=== PATIENT | male | born 1955 | race Caucasian/White ===

== ENCOUNTER 2017-10-29 13:56 | Emergency (ER) | payer OTHER ==
[~2017-10-29] VITALS: Ht 190.5 cm; Wt 110.7 kg
[~2017-10-29 13:56] MED LIST: AMIODARONE HCL200 MG PO; AMLODIPINE BESY10 MG PO; ASPIR 8181 MG PO; ATORVASTATIN CA20 MG PO; B-122500 MCG PO; CALCIUM600 MG PO; CLEOCIN HCL150 MG PO; CLINDAMYCIN HC150 MG PO; CLINDAMYCIN HC300 MG PO; COUMADIN1 MG PO; COUMADIN2.5 MG PO; CYMBALTA30 MG PO; DIOVAN80 MG PO; DULERA 200 MCG/13 GM; DULERA 200 MCG/13 GM INH; HYDROCHLOROTHIA25 MG PO; HYZAAR 50-12.51 EACH PO; LASIX40 MG PO; LIPITOR80 MG PO; MELOXICAM15 MG PO; OMEPRAZOLE40 MG PO; PLAVIX75 MG PO; PRILOSEC OTC20 MG PO; REQUIP4 MG PO; ROPINIROLE HCL1 MG PO; SYMBICORT 80-10.2 GM; TOPROL XL50 MG PO; ZETIA10 MG PO
[2017-10-29 14:26] LABS: BASOPHILS % 0.1 % (0.0-1.0); EOSINOPHILS # (AUTO) 0.2 (0.0-0.4); EOSINOPHILS % 2.8 % (0.0-6.0); HEMATOCRIT 28.5 % (38.2-49.6); HEMOGLOBIN 9.3 g/dL (14.0-18.0); LYMPHOCYTES # (AUTO) 1.2 (1.0-3.2); LYMPHOCYTES % 15.2 % (18.0-39.1); MEAN CORPUSCULAR HEMOGLOBIN 31.2 pg (28-32); MEAN CORPUSCULAR HGB CONC 32.6 g/dL (31-35); MEAN CORPUSCULAR VOLUME 95.6 fL (81-99); MONOCYTES # (AUTO) 0.7 (0.2-0.8); NEUTROPHILS # (AUTO) 5.8 (2.1-6.9); NEUTROPHILS % 71.4 % (38.7-80.0); PLATELET COUNT 244 x10e3/uL (140-360); RED BLOOD COUNT 2.98 x10e6/uL (4.3-5.7); RED CELL DISTRIBUTION WIDTH 15.9 % (11.7-14.4)
[2017-10-29 14:40] LABS: INR 3.51; PROTHROMBIN TIME 37.1 seconds (11.9-14.5)
[2017-10-29 14:41] LABS: PARTIAL THROMBOPLASTIN TIME 72.8 seconds (23.8-35.5)
== END 2017-10-29 18:50 | disposition home or self-care (01) ==
LOC: ER 13:56
DX: R04.0 Epistaxis (principal); I10 Essential (primary) hypertension; I51.9 Heart disease, unspecified
CPT/HCPCS: 36415; 85025; 85610; 85730; 99284

== ENCOUNTER 2017-12-24 09:44 | Emergency (ER) | payer OTHER ==
[~2017-12-24] VITALS: Ht 190.5 cm; Wt 108.7 kg
--- OUTSIDE RECORDS SUMMARY | 2017-12-24 09:49 | XMS REPORT ---
Author Author [facility] Address Unknown Phone Unavailable Care Team Providers Care Groover Operator Name Role Phone ROSINA ESDRAS Unavailable Unavailable CHUCK GREER Unavailable Unavailable LISA SORENSEN Unavailable Unavailable Problems This patient has no known problems. Allergies, Adverse Reactions, Alerts This patient has no known allergies or adverse reactions. Medications This patient has no known medications. Results Test Description Test Time Test Comments Text Results Atomic Results Result Comments CBC W/PLT COUNT & AUTO DIFFERENTIAL 2017-02-14 08:45:00 WHITE BLOOD CELL COUNT (BEAKER) (test zoes=178) 12.0 K/ L 4.0-10.0 RED BLOOD CELL COUNT (BEAKER) (test vjip=200) 2.26 M/ L 4.20-5.80 HEMOGLOBIN (BEAKER) (test rmpz=265) 8.0 GM/DL 13.0-16.8 HEMATOCRIT (BEAKER) (test ttzb=197) 23.1 % 40.0-50.0 MEAN CORPUSCULAR VOLUME (BEAKER) (test osfi=117) 102.0 fL 82.0-98.0 MEAN CORPUSCULAR HEMOGLOBIN (BEAKER) (test fxyc=850) 35.1 pg 27.0-33.0 MEAN CORPUSCULAR HEMOGLOBIN CONC (BEAKER) (test fdkm=243) 34.4 GM/DL 32.0- 36.0 RED CELL DISTRIBUTION WIDTH (BEAKER) (test clqo=428) 14.7 % 10.3-14.2 PLATELET COUNT (BEAKER) (test ncqo=340) 222 K/CU MM 150-430 MEAN PLATELET VOLUME (BEAKER) (test fmwe=324) 7.1 fL 6.5-10.5 NUCLEATED RED BLOOD CELLS (BEAKER) (test hcnk=308) 0 /100 WBC 0-0 NEUTROPHILS RELATIVE PERCENT (BEAKER) (test zpeu=739) 74 % LYMPHOCYTES RELATIVE PERCENT (BEAKER) (test swls=812) 12 % MONOCYTES RELATIVE PERCENT (BEAKER) (test qvzd=424) 10 % EOSINOPHILS RELATIVE PERCENT (BEAKER) (test ghun=839) 4 % BASOPHILS RELATIVE PERCENT (BEAKER) (test sjfn=272) 0 % NEUTROPHILS ABSOLUTE COUNT (BEAKER) (test uska=534) 8.86 K/ L 1.80-8.00 LYMPHOCYTES ABSOLUTE COUNT (BEAKER) (test uunq=316) 1.40 K/ L 1.48-4.50 MONOCYTES ABSOLUTE COUNT (BEAKER) (test recn=761) 1.22 K/ L 0.00-1.30 EOSINOPHILS ABSOLUTE COUNT (BEAKER) (test msjx=894) 0.50 K/ L 0.00-0.50 BASOPHILS ABSOLUTE COUNT (BEAKER) (test yzml=628) 0.03 K/ L 0.00-0.20 0.001.100.000.000.000.000.000.000.000.000.000.000.000.00BASIC METABOLIC [id number] 05:43:00* Test Item Value Reference Range Comments SODIUM (BEAKER) (test mghv=990) 131 meq/L 136-145 POTASSIUM (BEAKER) (test ypxh=318) 4.1 meq/L 3.5-5.1 CHLORIDE (BEAKER) (test mnab=546) 100 meq/L 98-107 CO2 (BEAKER) (test ftum=005) 23 meq/L 22-29 BLOOD UREA NITROGEN (BEAKER) (test assr=278) 18 mg/dL 7-21 CREATININE (BEAKER) (test yego=511) 0.84 mg/dL 0.57-1.25 GLUCOSE RANDOM (BEAKER) (test rggv=298) 91 mg/dL 70-105 CALCIUM (BEAKER) (test fzts=792) 7.9 mg/dL 8.4-10.2 EGFR (BEAKER) (test nrvs=8902) 93 mL/min/1.73 sq m ESTIMATED GFR IS NOT ACCURATE CREATININE CLEARANCE IN PREDICTING GLOMERULAR FILTRATION RATE. ESTIMATED GFR IS NOT APPLICABLE FOR DIALYSIS PATIENTS. [id number] 05:39:00* Test Item Value Reference Range Comments MAGNESIUM (BEAKER) (test gvwn=264) 2.0 mg/dL 1.6-2.6 PROTHROMBIN [id number] 05:15:00* Test Item Value Reference Range Comments PROTIME (BEAKER) (test istl=311) 27.7 seconds 11.7-14.7 INR (BEAKER) (test acjd=730) 2.6 <=5.9 RECOMMENDED COUMADIN/WARFARIN INR THERAPY RANGESSTANDARD DOSE: 2.0 - 3.0 Includes: PROPHYLAXIS for venous thrombosis, systemic embolization; TREATMENT for venous thrombosis and/or pulmonary embolus.HIGH RISK: Target INR is 2.5-3.5 for patients with mechanical heart valves.PROTHROMBIN [id number] 05:50: 00* Test Item Value Reference Range Comments PROTIME (BEAKER) (test acay=615) 21.2 seconds 11.7-14.7 INR (BEAKER) (test qxve=360) 1.8 <=5.9 RECOMMENDED COUMADIN/WARFARIN INR THERAPY RANGESSTANDARD DOSE: 2.0 - 3.0 Includes: PROPHYLAXIS for venous thrombosis, systemic embolization; TREATMENT for venous thrombosis and/or pulmonary embolus.HIGH RISK: Target INR is 2.5-3.5 for patients with mechanical heart valves.POCT-GLUCOSE [id number] 12:36:00 * Test Item Value Reference Range Comments POC-GLUCOSE METER (BEAKER) (test vmwu=1563) 133 mg/dL 70-110 TESTED AT [place] [id number] [facility] [address] POCT-GLUCOSE [id number] 08:35:00* Test Item Value Reference Range Comments POC-GLUCOSE METER (BEAKER) (test jrfo=0710) 115 mg/dL 70-110 TESTED AT [place] [id number] [facility] [address] PROTHROMBIN TIME/[id number] 04:21:00* Test Item Value Reference Range Comments PROTIME (BEAKER) (test hklg=222) 16.2 seconds 11.7-14.7 INR (BEAKER) (test xnbx=229) 1.3 <=5.9 RECOMMENDED COUMADIN/WARFARIN INR THERAPY RANGESSTANDARD DOSE: 2.0 - 3.0 Includes: PROPHYLAXIS for venous thrombosis, systemic embolization; TREATMENT for venous thrombosis and/or pulmonary embolus.HIGH RISK: Target INR is 2.5-3.5 for patients with mechanical heart valves.POCT-GLUCOSE [id number] 21:54:00 * Test Item Value Reference Range Comments POC-GLUCOSE METER (BEAKER) (test fadw=4104) 96 mg/dL 70-[address] [facility] [address] [facility] [address] POCT-GLUCOSE [id number] 17:12:00* Test Item Value Reference Range Comments POC-GLUCOSE METER (BEAKER) (test gngc=8378) 109 mg/dL 70-[address] [facility] [address] [facility] [address] CBC W/PLT COUNT & AUTO [id number] 11:10:00* Test Item Value Reference Range Comments WHITE BLOOD CELL COUNT (BEAKER) (test vkcx=102) 12.3 K/ L 4.0-10.0 RED BLOOD CELL COUNT (BEAKER) (test nypt=771) 2.34 M/ L 4.20-5.80 HEMOGLOBIN (BEAKER) (test kwnc=009) 7.9 GM/DL 13.0-16.8 HEMATOCRIT (BEAKER) (test fhzz=260) 23.4 % 40.0-50.0 MEAN CORPUSCULAR VOLUME (BEAKER) (test vhpa=255) 100.0 fL 82.0-98.0 MEAN CORPUSCULAR HEMOGLOBIN (BEAKER) (test neqj=175) 33.8 pg 27.0-33.0 MEAN CORPUSCULAR HEMOGLOBIN CONC (BEAKER) (test bonu=582) 33.8 GM/DL 32.0- 36.0 RED CELL DISTRIBUTION WIDTH (BEAKER) (test geby=483) 15.0 % 10.3-14.2 PLATELET COUNT (BEAKER) (test ixch=112) 155 K/CU MM 150-430 MEAN PLATELET VOLUME (BEAKER) (test vmaj=608) 8.0 fL 6.5-10.5 NUCLEATED RED BLOOD CELLS (BEAKER) (test fqrn=705) 0 /100 WBC 0-0 NEUTROPHILS RELATIVE PERCENT (BEAKER) (test qhnm=283) 76 % LYMPHOCYTES RELATIVE PERCENT (BEAKER) (test xmwh=634) 11 % MONOCYTES RELATIVE PERCENT (BEAKER) (test gjgn=920) 12 % EOSINOPHILS RELATIVE PERCENT (BEAKER) (test temq=493) 1 % BASOPHILS RELATIVE PERCENT (BEAKER) (test ztze=371) 0 % NEUTROPHILS ABSOLUTE COUNT (BEAKER) (test aotz=999) 9.40 K/ L 1.80-8.00 LYMPHOCYTES ABSOLUTE COUNT (BEAKER) (test ciuw=870) 1.31 K/ L 1.48-4.50 MONOCYTES ABSOLUTE COUNT (BEAKER) (test thsy=094) 1.47 K/ L 0.00-1.30 EOSINOPHILS ABSOLUTE COUNT (BEAKER) (test pwyx=805) 0.12 K/ L 0.00-0.50 BASOPHILS ABSOLUTE COUNT (BEAKER) (test gqbs=234) 0.03 K/ L 0.00-0.20 0.000.500.000.000.000.000.000.00(MANUAL DIFFERENTIAL)2017-02-11 11:10:00* Test Item Value Reference Range Comments TOTAL COUNTED (BEAKER) (test ekqr=9390) WBC MORPHOLOGY (BEAKER) (test lkut=096) Normal PLT MORPHOLOGY (BEAKER) (test yncf=014) Normal RBC MORPHOLOGY (BEAKER) (test gmwr=234) Normal POCT-GLUCOSE [id number] 08:50:00* Test Item Value Reference Range Comments POC-GLUCOSE METER (BEAKER) (test eytc=2936) 148 mg/dL 70-[address] [facility] [address] [facility] [address] BASIC METABOLIC [id number] 06:14:00* Test Item Value Reference Range Comments SODIUM (BEAKER) (test ufdh=299) 135 meq/L 136-145 POTASSIUM (BEAKER) (test obvt=012) 4.6 meq/L 3.5-5.1 CHLORIDE (BEAKER) (test vjsu=567) 103 meq/L 98-107 CO2 (BEAKER) (test cyvu=635) 23 meq/L 22-29 BLOOD UREA NITROGEN (BEAKER) (test acie=550) 35 mg/dL 7-21 CREATININE (BEAKER) (test uoqr=318) 0.98 mg/dL 0.57-1.25 GLUCOSE RANDOM (BEAKER) (test uuow=897) 104 mg/dL 70-105 CALCIUM (BEAKER) (test wgmq=592) 7.9 mg/dL 8.4-10.2 EGFR (BEAKER) (test ftja=9881) 78 mL/min/1.73 sq m ESTIMATED GFR IS NOT ACCURATE CREATININE CLEARANCE IN PREDICTING GLOMERULAR FILTRATION RATE. ESTIMATED GFR IS NOT APPLICABLE FOR DIALYSIS PATIENTS. PROTHROMBIN [id number] 05:51:00* Test Item Value Reference Range Comments PROTIME (BEAKER) (test fsay=452) 15.1 seconds 11.7-14.7 INR (BEAKER) (test ttlv=245) 1.2 <=5.9 RECOMMENDED COUMADIN/WARFARIN INR THERAPY RANGESSTANDARD DOSE: 2.0 - 3.0 Includes: PROPHYLAXIS for venous thrombosis, systemic embolization; TREATMENT for venous thrombosis and/or pulmonary embolus.HIGH RISK: Target INR is 2.5-3.5 for patients with mechanical heart valves.POCT-GLUCOSE [id number] 21:11:00 * Test Item Value Reference Range Comments POC-GLUCOSE METER (BEAKER) (test chvi=3667) 99 mg/dL 70-110 TESTED AT [address] [address] POCT-GLUCOSE [id number] 17:30:00* Test Item Value Reference Range Comments POC-GLUCOSE METER (BEAKER) (test rycf=7945) 112 mg/dL 70-110 TESTED AT [address] [address] POCT-GLUCOSE [id number] 12:39:00* Test Item Value Reference Range Comments POC-GLUCOSE METER (BEAKER) (test dzgu=1277) 119 mg/dL 70-110 TESTED AT [address] [address] POCT-GLUCOSE [id number] 08:45:00* Test Item Value Reference Range Comments POC-GLUCOSE METER (BEAKER) (test janl=8476) 132 mg/dL 70-110 TESTED AT [address] [address] PROTHROMBIN TIME/[id number] 05:25:00* Test Item Value Reference Range Comments PROTIME (BEAKER) (test eclc=926) 15.1 seconds 11.7-14.7 INR (BEAKER) (test lcsq=612) 1.2 <=5.9 RECOMMENDED COUMADIN/WARFARIN INR THERAPY RANGESSTANDARD DOSE: 2.0 - 3.0 Includes: PROPHYLAXIS for venous thrombosis, systemic embolization; TREATMENT for venous thrombosis and/or pulmonary embolus.HIGH RISK: Target INR is 2.5-3.5 for patients with mechanical heart valves.[id number] 05:22:00* Test Item Value Reference Range Comments MAGNESIUM (BEAKER) (test gzfk=837) 2.5 mg/dL 1.6-2.6 BASIC METABOLIC [id number] 05:22:00* Test Item Value Reference Range Comments SODIUM (BEAKER) (test lccx=762) 134 meq/L 136-145 POTASSIUM (BEAKER) (test gmxo=699) 4.6 meq/L 3.5-5.1 CHLORIDE (BEAKER) (test pinj=910) 103 meq/L 98-107 CO2 (BEAKER) (test qjdb=423) 25 meq/L 22-29 BLOOD UREA NITROGEN (BEAKER) (test ldfe=246) 33 mg/dL 7-21 CREATININE (BEAKER) (test nkvk=357) 1.02 mg/dL 0.57-1.25 GLUCOSE RANDOM (BEAKER) (test pbxc=852) 120 mg/dL 70-105 CALCIUM (BEAKER) (test ogwr=259) 8.1 mg/dL 8.4-10.2 EGFR (BEAKER) (test gvss=0596) 74 mL/min/1.73 sq m ESTIMATED GFR IS NOT ACCURATE CREATININE CLEARANCE IN PREDICTING GLOMERULAR FILTRATION RATE. ESTIMATED GFR IS NOT APPLICABLE FOR DIALYSIS PATIENTS. CBC W/PLT COUNT & AUTO [id number] 05:19:00* Test Item Value Reference Range Comments WHITE BLOOD CELL COUNT (BEAKER) (test wloc=182) 13.3 K/ L 4.0-10.0 RED BLOOD CELL COUNT (BEAKER) (test gdtl=661) 2.37 M/ L 4.20-5.80 HEMOGLOBIN (BEAKER) (test fnof=571) 7.8 GM/DL 13.0-16.8 HEMATOCRIT (BEAKER) (test mqoa=680) 23.6 % 40.0-50.0 MEAN CORPUSCULAR VOLUME (BEAKER) (test jxzi=938) 99.8 fL 82.0-98.0 MEAN CORPUSCULAR HEMOGLOBIN (BEAKER) (test ovso=822) 33.1 pg 27.0-33.0 MEAN CORPUSCULAR HEMOGLOBIN CONC (BEAKER) (test vata=859) 33.1 GM/DL 32.0- 36.0 RED CELL DISTRIBUTION WIDTH (BEAKER) (test anuv=388) 14.7 % 10.3-14.2 PLATELET COUNT (BEAKER) (test zpna=126) 119 K/CU MM 150-430 MEAN PLATELET VOLUME (BEAKER) (test gola=106) 8.2 fL 6.5-10.5 NUCLEATED RED BLOOD CELLS (BEAKER) (test uwsp=514) 0 /100 WBC 0-0 NEUTROPHILS RELATIVE PERCENT (BEAKER) (test yeip=137) 80 % LYMPHOCYTES RELATIVE PERCENT (BEAKER) (test dvup=750) 10 % MONOCYTES RELATIVE PERCENT (BEAKER) (test sljk=008) 10 % EOSINOPHILS RELATIVE PERCENT (BEAKER) (test kbdx=500) 1 % BASOPHILS RELATIVE PERCENT (BEAKER) (test gexc=289) 0 % NEUTROPHILS ABSOLUTE COUNT (BEAKER) (test aitu=340) 10.50 K/ L 1.80-8.00 LYMPHOCYTES ABSOLUTE COUNT (BEAKER) (test xiuu=697) 1.34 K/ L 1.48-4.50 MONOCYTES ABSOLUTE COUNT (BEAKER) (test opjt=872) 1.29 K/ L 0.00-1.30 EOSINOPHILS ABSOLUTE COUNT (BEAKER) (test ixnj=858) 0.09 K/ L 0.00-0.50 BASOPHILS ABSOLUTE COUNT (BEAKER) (test pvyn=477) 0.01 K/ L 0.00-0.20 0.00POCT-GLUCOSE [id number] 21:14:00* Test Item Value Reference Range Comments POC-GLUCOSE METER (BEAKER) (test zwco=9247) 137 mg/dL 70-110 TESTED AT [address] [address] POCT-GLUCOSE [id number] 13:34:00* Test Item Value Reference Range Comments POC-GLUCOSE METER (BEAKER) (test xvua=8645) 165 mg/dL 70-110 TESTED AT [place] [id number] [facility] [address] CALCIUM, [id number] 12:50:00* Test Item Value Reference Range Comments CALCIUM IONIZED (BEAKER) (test haql=161) 1.08 mmol/L 1.12-1.27 PH, BLOOD (BEAKER) (test zxps=7472) 7.42 Check serum Ionized Calcium level after 4 hours after IV Calcium replacement.POCT-GLUCOSE [id number] 05:49:00* Test Item Value Reference Range Comments POC-GLUCOSE METER (BEAKER) (test filo=9193) 189 mg/dL 70-[address] [facility] [address] [facility] [address] BASIC METABOLIC [id number] 03:38:00* Test Item Value Reference Range Comments SODIUM (BEAKER) (test ugja=348) 133 meq/L 136-145 POTASSIUM (BEAKER) (test pspt=177) 4.5 meq/L 3.5-5.1 CHLORIDE (BEAKER) (test eghg=493) 104 meq/L 98-107 CO2 (BEAKER) (test oemp=454) 22 meq/L 22-29 BLOOD UREA NITROGEN (BEAKER) (test mohc=296) 26 mg/dL 7-21 CREATININE (BEAKER) (test tulk=562) 1.04 mg/dL 0.57-1.25 GLUCOSE RANDOM (BEAKER) (test fnex=426) 168 mg/dL 70-105 CALCIUM (BEAKER) (test gwsw=684) 8.0 mg/dL 8.4-10.2 EGFR (BEAKER) (test wguz=0901) 73 mL/min/1.73 sq m ESTIMATED GFR IS NOT ACCURATE CREATININE CLEARANCE IN PREDICTING GLOMERULAR FILTRATION RATE. ESTIMATED GFR IS NOT APPLICABLE FOR DIALYSIS PATIENTS. [id number] 03:37:00* Test Item Value Reference Range Comments MAGNESIUM (BEAKER) (test tkmc=051) 2.3 mg/dL 1.6-2.6 CBC W/PLT COUNT & AUTO [id number] 03:33:00* Test Item Value Reference Range Comments WHITE BLOOD CELL COUNT (BEAKER) (test dmrh=590) 17.1 K/ L 4.0-10.0 RED BLOOD CELL COUNT (BEAKER) (test yhwc=960) 2.57 M/ L 4.20-5.80 HEMOGLOBIN (BEAKER) (test rkhy=852) 8.8 GM/DL 13.0-16.8 HEMATOCRIT (BEAKER) (test yrzd=610) 25.3 % 40.0-50.0 MEAN CORPUSCULAR VOLUME (BEAKER) (test pmnm=289) 98.5 fL 82.0-98.0 MEAN CORPUSCULAR HEMOGLOBIN (BEAKER) (test lngp=389) 34.1 pg 27.0-33.0 MEAN CORPUSCULAR HEMOGLOBIN CONC (BEAKER) (test hwtz=920) 34.6 GM/DL 32.0- 36.0 RED CELL DISTRIBUTION WIDTH (BEAKER) (test xxdh=119) 13.7 % 10.3-14.2 PLATELET COUNT (BEAKER) (test rnlc=192) 116 K/CU MM 150-430 MEAN PLATELET VOLUME (BEAKER) (test yxfw=669) 7.9 fL 6.5-10.5 NUCLEATED RED BLOOD CELLS (BEAKER) (test dfwh=167) 0 /100 WBC 0-0 NEUTROPHILS RELATIVE PERCENT (BEAKER) (test jtzs=861) 83 % LYMPHOCYTES RELATIVE PERCENT (BEAKER) (test siyo=123) 7 % MONOCYTES RELATIVE PERCENT (BEAKER) (test pjfs=198) 10 % EOSINOPHILS RELATIVE PERCENT (BEAKER) (test ivbe=698) 0 % BASOPHILS RELATIVE PERCENT (BEAKER) (test trcy=956) 0 % NEUTROPHILS ABSOLUTE COUNT (BEAKER) (test ysxc=703) 14.10 K/ L 1.80-8.00 LYMPHOCYTES ABSOLUTE COUNT (BEAKER) (test zkdt=716) 1.23 K/ L 1.48-4.50 MONOCYTES ABSOLUTE COUNT (BEAKER) (test tfpj=155) 1.69 K/ L 0.00-1.30 EOSINOPHILS ABSOLUTE COUNT (BEAKER) (test nxqx=731) 0.06 K/ L 0.00-0.50 BASOPHILS ABSOLUTE COUNT (BEAKER) (test ijvf=621) 0.01 K/ L 0.00-0.20 0.00CALCIUM, [id number] 00:11:00* Test Item Value Reference Range Comments CALCIUM IONIZED (BEAKER) (test fwde=327) 1.05 mmol/L 1.12-1.27 PH, BLOOD (BEAKER) (test ptov=8181) 7.41 [id number] 00:11:00* Test Item Value Reference Range Comments MAGNESIUM (BEAKER) (test fyce=037) 2.2 mg/dL 1.6-2.6 POTASSIUM-STAT [id number] 00:09:00* Test Item Value Reference Range Comments POTASSIUM (BEAKER) (test khxu=767) 4.2 meq/L 3.6-5.5 POCT-GLUCOSE [id number] 22:07:00* Test Item Value Reference Range Comments POC-GLUCOSE METER (BEAKER) (test brxu=5985) 170 mg/dL 70-[address] [facility] [address] [facility] [address] HEMOGLOBIN AND [id number] 14:13:00* Test Item Value Reference Range Comments HEMOGLOBIN (BEAKER) (test lvlh=093) 9.3 GM/DL 13.0-16.8 HEMATOCRIT (BEAKER) (test blvb=201) 26.7 % 40.0-50.0 POCT-GLUCOSE [id number] 12:54:00* Test Item Value Reference Range Comments POC-GLUCOSE METER (BEAKER) (test jvpp=2761) 201 mg/dL 70-110 TESTED AT [address] [address] PLATELET AGGREGATION: FUNCTION [id number] 10:57:00* Test Item Value Reference Range Comments WEAK ADP RESULT(BEAKER) (test heja=0484) 60 % 60-91 PLATELET FUNCTION SCREEN INTERP (BEAKER) (test itlm=7724) 60-100% indicates normal platelet function [id number] (BEAKER) (test sfqp=3829) Klaudia Torres MD ( electronic signature) PLATELET COUNT AGG (BEAKER) (test luxb=7448) 144 K/CU MM 150-430 POCT-GLUCOSE [id number] 06:38:00* Test Item Value Reference Range Comments POC-GLUCOSE METER (BEAKER) (test nwch=8525) 190 mg/dL 70-110 TESTED AT [place] [id number] [facility] [address] [id number] 03:33:00* Test Item Value Reference Range Comments MAGNESIUM (BEAKER) (test sfut=209) 2.6 mg/dL 1.6-2.6 BASIC METABOLIC [id number] 03:33:00* Test Item Value Reference Range Comments SODIUM (BEAKER) (test epbp=143) 141 meq/L 136-145 POTASSIUM (BEAKER) (test ofsm=961) 4.7 meq/L 3.5-5.1 CHLORIDE (BEAKER) (test leou=691) 110 meq/L 98-107 CO2 (BEAKER) (test wofd=288) 21 meq/L 22-29 BLOOD UREA NITROGEN (BEAKER) (test kvcp=053) 24 mg/dL 7-21 CREATININE (BEAKER) (test yvet=353) 1.11 mg/dL 0.57-1.25 GLUCOSE RANDOM (BEAKER) (test aicq=333) 161 mg/dL 70-105 CALCIUM (BEAKER) (test nlyx=919) 8.4 mg/dL 8.4-10.2 EGFR (BEAKER) (test wlif=6877) 67 mL/min/1.73 sq m ESTIMATED GFR IS NOT ACCURATE CREATININE CLEARANCE IN PREDICTING GLOMERULAR FILTRATION RATE. ESTIMATED GFR IS NOT APPLICABLE FOR DIALYSIS PATIENTS. CALCIUM, [id number] 03:20:00* Test Item Value Reference Range Comments CALCIUM IONIZED (BEAKER) (test btbg=157) 1.16 mmol/L 1.12-1.27 PH, BLOOD (BEAKER) (test efhm=7383) 7.43 Check serum Ionized Calcium level after 4 hours after IV Calcium replacement.CBC W/PLT COUNT & AUTO [id number] 03:17:00* Test Item Value Reference Range Comments WHITE BLOOD CELL COUNT (BEAKER) (test uzkq=650) 13.9 K/ L 4.0-10.0 RED BLOOD CELL COUNT (BEAKER) (test aqma=787) 2.85 M/ L 4.20-5.80 HEMOGLOBIN (BEAKER) (test wlum=024) 9.5 GM/DL 13.0-16.8 HEMATOCRIT (BEAKER) (test cgfg=638) 28.1 % 40.0-50.0 MEAN CORPUSCULAR VOLUME (BEAKER) (test mvhy=876) 98.5 fL 82.0-98.0 MEAN CORPUSCULAR HEMOGLOBIN (BEAKER) (test rmac=071) 33.3 pg 27.0-33.0 MEAN CORPUSCULAR HEMOGLOBIN CONC (BEAKER) (test wfvo=184) 33.8 GM/DL 32.0- 36.0 RED CELL DISTRIBUTION WIDTH (BEAKER) (test egjl=941) 13.6 % 10.3-14.2 PLATELET COUNT (BEAKER) (test pfaj=994) 127 K/CU MM 150-430 MEAN PLATELET VOLUME (BEAKER) (test pxsg=448) 7.7 fL 6.5-10.5 NUCLEATED RED BLOOD CELLS (BEAKER) (test gvbm=343) 0 /100 WBC 0-0 NEUTROPHILS RELATIVE PERCENT (BEAKER) (test qygk=580) 81 % LYMPHOCYTES RELATIVE PERCENT (BEAKER) (test rdpz=343) 9 % MONOCYTES RELATIVE PERCENT (BEAKER) (test uxsy=700) 10 % EOSINOPHILS RELATIVE PERCENT (BEAKER) (test divd=564) 0 % BASOPHILS RELATIVE PERCENT (BEAKER) (test lnpi=806) 0 % NEUTROPHILS ABSOLUTE COUNT (BEAKER) (test weya=209) 11.30 K/ L 1.80-8.00 LYMPHOCYTES ABSOLUTE COUNT (BEAKER) (test woca=140) 1.22 K/ L 1.48-4.50 MONOCYTES ABSOLUTE COUNT (BEAKER) (test mbfb=147) 1.32 K/ L 0.00-1.30 EOSINOPHILS ABSOLUTE COUNT (BEAKER) (test ogic=868) 0.06 K/ L 0.00-0.50 BASOPHILS ABSOLUTE COUNT (BEAKER) (test bpxv=268) 0.02 K/ L 0.00-0.20 0.00HGB/HCT (H&H) - STAT [id number] 22:18:00* Test Item Value Reference Range Comments HEMOGLOBIN (BEAKER) (test zzwq=105) 9.5 GM/DL 13.0-16.8 HEMATOCRIT (BEAKER) (test kvhs=082) 28.0 % 40.0-50.0 [id number] 22:09:00* Test Item Value Reference Range Comments PHOSPHORUS (BEAKER) (test frlt=385) 4.5 mg/dL 2.3-4.7 [id number] 22:09:00* Test Item Value Reference Range Comments MAGNESIUM (BEAKER) (test nsky=904) 1.7 mg/dL 1.6-2.6 POTASSIUM-STAT [id number] 21:54:00* Test Item Value Reference Range Comments POTASSIUM (BEAKER) (test mjbe=491) 4.5 meq/L 3.6-5.5 CALCIUM, [id number] 21:54:00* Test Item Value Reference Range Comments CALCIUM IONIZED (BEAKER) (test ppri=659) 1.06 mmol/L 1.12-1.27 PH, BLOOD (BEAKER) (test rrpw=9056) 7.46 BLOOD GAS, [id number] 19:14:00* Test Item Value Reference Range Comments PH ARTERIAL (BEAKER) (test hkpa=400) 7.40 7.35-7.45 PCO2 ARTERIAL (BEAKER) (test sfke=147) 40 mmHg 35-45 PO2 ARTERIAL (BEAKER) (test jlsq=507) 87 mmHg 80-90 O2 SATURATION ARTERIAL (BEAKER) (test flox=243) 96.5 % 96.0-97.0 HCO3 ARTERIAL (BEAKER) (test ylma=702) 24 mmol/L 21-29 BASE EXCESS ARTERIAL (BEAKER) (test huxj=726) -0.3 mmol/L -2.0-3.0 PATIENT TEMPERATURE (BEAKER) (test esgd=4310) 37.3 C FIO2 (BEAKER) (test dezo=7806) 20.0 % BLOOD GAS, [id number] 17:49:00* Test Item Value Reference Range Comments PH ARTERIAL (BEAKER) (test jwlz=573) 7.38 7.35-7.45 PCO2 ARTERIAL (BEAKER) (test kbuv=891) 42 mmHg 35-45 PO2 ARTERIAL (BEAKER) (test nvbb=917) 121 mmHg 80-90 O2 SATURATION ARTERIAL (BEAKER) (test hbdg=234) 98.4 % 96.0-97.0 HCO3 ARTERIAL (BEAKER) (test ynqw=890) 24 mmol/L 21-29 BASE EXCESS ARTERIAL (BEAKER) (test gdtz=568) -1.0 mmol/L -2.0-3.0 PATIENT TEMPERATURE (BEAKER) (test qebl=8047) 36.3 C FIO2 (BEAKER) (test ehsy=6350) 40.0 % [id number] 16:48:00* Test Item Value Reference Range Comments FIBRINOGEN LEVEL (BEAKER) (test symz=076) 254 mg/dl 225-434 [id number] 16:48:00* Test Item Value Reference Range Comments PARTIAL THROMBOPLASTIN TIME (BEAKER) (test sghc=870) 33.3 seconds 22.5-36.0 PROTHROMBIN [id number] 16:47:00* Test Item Value Reference Range Comments PROTIME (BEAKER) (test tqyw=535) 16.7 seconds 11.7-14.7 INR (BEAKER) (test gdfs=700) 1.4 <=5.9 RECOMMENDED COUMADIN/WARFARIN INR THERAPY RANGESSTANDARD DOSE: 2.0 - 3.0 Includes: PROPHYLAXIS for venous thrombosis, systemic embolization; TREATMENT for venous thrombosis and/or pulmonary embolus.HIGH RISK: Target INR is 2.5-3.5 for patients with mechanical heart valves.[id number] 16:28:00* Test Item Value Reference Range Comments MAGNESIUM (BEAKER) (test tccf=824) 2.0 mg/dL 1.6-2.6 BASIC METABOLIC [id number] 16:28:00* Test Item Value Reference Range Comments SODIUM (BEAKER) (test okun=085) 141 meq/L 136-145 POTASSIUM (BEAKER) (test dore=962) 4.4 meq/L 3.5-5.1 CHLORIDE (BEAKER) (test nfyd=831) 111 meq/L 98-107 CO2 (BEAKER) (test fgor=691) 24 meq/L 22-29 BLOOD UREA NITROGEN (BEAKER) (test byfc=744) 22 mg/dL 7-21 CREATININE (BEAKER) (test qjwe=510) 0.91 mg/dL 0.57-1.25 GLUCOSE RANDOM (BEAKER) (test gbjl=751) 117 mg/dL 70-105 CALCIUM (BEAKER) (test oewu=546) 7.9 mg/dL 8.4-10.2 EGFR (BEAKER) (test myda=1383) 85 mL/min/1.73 sq m ESTIMATED GFR IS NOT ACCURATE CREATININE CLEARANCE IN PREDICTING GLOMERULAR FILTRATION RATE. ESTIMATED GFR IS NOT APPLICABLE FOR DIALYSIS PATIENTS. LACTIC ACID, ARTERIAL, WHOLE [id number] 16:25:00* Test Item Value Reference Range Comments LACTATE BLOOD ARTERIAL (2) (BEAKER) (test jvym=0446) 1.7 mmol/L 0.5-2.2 Effective 03/16/2016: Units/Reference Range ChangeNew: 0.5-2.2 mmol/L Previous: 5 -20 mg/dLCBC W/PLT COUNT & AUTO [id number] 16:23:00* Test Item Value Reference Range Comments WHITE BLOOD CELL COUNT (BEAKER) (test uxzy=258) 22.1 K/ L 4.0-10.0 RED BLOOD CELL COUNT (BEAKER) (test bqzi=985) 3.23 M/ L 4.20-5.80 HEMOGLOBIN (BEAKER) (test zdrj=729) 10.8 GM/DL 13.0-16.8 HEMATOCRIT (BEAKER) (test jicy=334) 31.8 % 40.0-50.0 MEAN CORPUSCULAR VOLUME (BEAKER) (test fqgu=925) 98.4 fL 82.0-98.0 MEAN CORPUSCULAR HEMOGLOBIN (BEAKER) (test zbbv=942) 33.4 pg 27.0-33.0 MEAN CORPUSCULAR HEMOGLOBIN CONC (BEAKER) (test xsge=328) 34.0 GM/DL 32.0- 36.0 RED CELL DISTRIBUTION WIDTH (BEAKER) (test lyxh=272) 13.5 % 10.3-14.2 PLATELET COUNT (BEAKER) (test wzov=643) 152 K/CU MM 150-430 MEAN PLATELET VOLUME (BEAKER) (test jyvj=182) 7.5 fL 6.5-10.5 NUCLEATED RED BLOOD CELLS (BEAKER) (test dufg=597) 0 /100 WBC 0-0 NEUTROPHILS RELATIVE PERCENT (BEAKER) (test nhzn=967) 79 % LYMPHOCYTES RELATIVE PERCENT (BEAKER) (test yzdc=500) 9 % MONOCYTES RELATIVE PERCENT (BEAKER) (test bzvm=568) 10 % EOSINOPHILS RELATIVE PERCENT (BEAKER) (test febh=367) 2 % BASOPHILS RELATIVE PERCENT (BEAKER) (test syxw=905) 0 % NEUTROPHILS ABSOLUTE COUNT (BEAKER) (test jchp=826) 17.40 K/ L 1.80-8.00 LYMPHOCYTES ABSOLUTE COUNT (BEAKER) (test woda=384) 2.06 K/ L 1.48-4.50 MONOCYTES ABSOLUTE COUNT (BEAKER) (test mbww=891) 2.14 K/ L 0.00-1.30 EOSINOPHILS ABSOLUTE COUNT (BEAKER) (test cvrv=924) 0.36 K/ L 0.00-0.50 BASOPHILS ABSOLUTE COUNT (BEAKER) (test zexa=701) 0.06 K/ L 0.00-0.20 0.00BLOOD GAS, [id number] 16:15:00* Test Item Value Reference Range Comments PH ARTERIAL (BEAKER) (test uddb=570) 7.38 7.35-7.45 PCO2 ARTERIAL (BEAKER) (test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
[2017-12-24] MEDS ORDERED: breo (11:53)
[2017-12-24] MEDS ORDERED: NORCO 10-325 T1 EACH PO (11:53)
[2017-12-24] MEDS ORDERED: SPIRIVA18 MCG INH (11:53)
[2017-12-24] MEDS ORDERED: LASIX20 MG PO (11:53)
[2017-12-24] MEDS ORDERED: CYMBALTA20 MG PO (11:53)
[2017-12-24] MEDS ORDERED: OMEPRAZOLE40 MG (11:53)
[2017-12-24] MEDS ORDERED: WARFARIN SODIUM1 MG PO (11:53)
[2017-12-24] MEDS ORDERED: METOPROLOL SUCC25 MG PO (11:53)
[2017-12-24] MEDS ORDERED: ROPINIROLE HC0.25 MG PO (11:53)
[2017-12-24] MEDS ORDERED: METOLAZONE5 MG PO (11:53)
[2017-12-24] MEDS ORDERED: GABAPENTIN100 MG PO (11:53)
[2018-01-01] MEDS ORDERED: KEFLEX500 MG PO (08:03)
[2018-01-01] MEDS ORDERED: GABAPENTIN300 MG PO (08:04)
== END 2017-12-24 13:36 | disposition home or self-care (01) ==
LOC: FSED 09:44
DX: R50.9 Fever, unspecified (principal); B34.9 Viral infection, unspecified; F17.210 Nicotine dependence, cigarettes, uncomplicated

== ENCOUNTER 2018-01-07 20:38 | Inpatient (IN) | payer OTHER ==
[~2018-01-07] VITALS: Ht 190.5 cm; Wt 108.5 kg
[~2018-01-07 20:38] MED LIST changes: +CYMBALTA20 MG PO; +GABAPENTIN100 MG PO; +GABAPENTIN300 MG PO; +KEFLEX500 MG PO; +LASIX20 MG PO; +METOLAZONE5 MG PO; +METOPROLOL SUCC25 MG PO; +NORCO 10-325 T1 EACH PO; +OMEPRAZOLE40 MG; +ROPINIROLE HC0.25 MG PO; +SPIRIVA18 MCG INH; +WARFARIN SODIUM1 MG PO; +breo
[2018-01-07 21:26] LABS: BASOPHILS % 0.3 % (0.0-1.0); EOSINOPHILS # (AUTO) 0.3 (0.0-0.4); EOSINOPHILS % 2.8 % (0.0-6.0); HEMOGLOBIN 11.9 g/dL (14.0-18.0); LYMPHOCYTES # (AUTO) 1.9 (1.0-3.2); LYMPHOCYTES % 18.8 % (18.0-39.1); MEAN CORPUSCULAR HGB CONC 32.2 g/dL (31-35); MEAN CORPUSCULAR VOLUME 87.1 fL (81-99); MONOCYTES # (AUTO) 1.3 (0.2-0.8); MONOCYTES % 12.5 % (4.4-11.3); NEUTROPHILS # (AUTO) 6.5 (2.1-6.9); PLATELET COUNT 301 x10e3/uL (140-360); RED BLOOD COUNT 4.25 x10e6/uL (4.3-5.7); RED CELL DISTRIBUTION WIDTH 16.3 % (11.7-14.4)
[2018-01-07 21:31] LABS: INR 2.89; PROTHROMBIN TIME 28.4 seconds (11.9-14.5)
[2018-01-07 21:32] LABS: PARTIAL THROMBOPLASTIN TIME 56.2 seconds (23.8-35.5)
[2018-01-07 21:37] LABS: ALANINE AMINOTRANSFERASE 17 IU/L (0-55); ALBUMIN 3.7 g/dL (3.5-5.0); ALBUMIN/GLOBULIN RATIO 0.9 (0.8-2.0); ALKALINE PHOSPHATASE 114 IU/L (40-150); BLOOD UREA NITROGEN 26 mg/dL (7-26); BUN/CREATININE RATIO 19 (6-25); CALCIUM 8.4 mg/dL (8.4-10.2); CARBON DIOXIDE 25 mmol/L (22-29); CHLORIDE 102 mmol/L (98-107); CREATININE, SERUM 1.39 mg/dL (0.72-1.25); EST GLOMERULAR FILTRATION RATE 52 ML/MIN (60-); GLUCOSE 127 mg/dL (74-118); SODIUM 140 mmol/L (136-145)
[2018-01-07] MEDS: PIPER-TAZ 3.375 GM 50 ML IV SCH (21:37)
[2018-01-07] MEDS: VANCOMYCIN 1GM/NS 250 ML 250 ML IV SCH (22:12)
[2018-01-07] MEDS ORDERED: METOLAZONE 5 MG TAB PO SCH (22:15)
[2018-01-07] MEDS ORDERED: ACETAMINOPHEN 325 MG TAB PO PRN (22:15)
[2018-01-07] MEDS ORDERED: ONDANSETRON HCL INJ 2 MG/ML VIAL IV PRN (22:15)
[2018-01-07] MEDS: SODIUM CHLORIDE 0.9% 1000ML 1,000 ML IV SCH (23:44)
[2018-01-08] MEDS: MORPHINE SULFATE 2 MG/ML SYR IV PRN ×2 (01:50→22:00)
[2018-01-08] MEDS: PIPER-TAZ 3.375 GM 50 ML IV SCH ×3 (05:45→22:00)
[2018-01-08 06:10] LABS: BASOPHILS % 0.1 % (0.0-1.0); EOSINOPHILS # (AUTO) 0.2 (0.0-0.4); EOSINOPHILS % 3.5 % (0.0-6.0); HEMATOCRIT 36.5 % (38.2-49.6); HEMOGLOBIN 11.5 g/dL (14.0-18.0); LYMPHOCYTES % 14.8 % (18.0-39.1); MEAN CORPUSCULAR HEMOGLOBIN 27.8 pg (28-32); MEAN CORPUSCULAR HGB CONC 31.5 g/dL (31-35); MEAN CORPUSCULAR VOLUME 88.2 fL (81-99); MONOCYTES # (AUTO) 0.8 (0.2-0.8); MONOCYTES % 12.3 % (4.4-11.3); NEUTROPHILS # (AUTO) 4.7 (2.1-6.9); NEUTROPHILS % 68.9 % (38.7-80.0); PLATELET COUNT 245 x10e3/uL (140-360); RED BLOOD COUNT 4.14 x10e6/uL (4.3-5.7); RED CELL DISTRIBUTION WIDTH 16.1 % (11.7-14.4)
[2018-01-08] MEDS: SODIUM CHLORIDE 0.9% 1000ML 1,000 ML IV SCH ×3 (06:27→14:39)
[2018-01-08 06:36] LABS: ALANINE AMINOTRANSFERASE 12 IU/L (0-55); ALBUMIN/GLOBULIN RATIO 0.8 (0.8-2.0); ALKALINE PHOSPHATASE 93 IU/L (40-150); ANION GAP 13.4 mmol/L (8-16); BLOOD UREA NITROGEN 22 mg/dL (7-26); BUN/CREATININE RATIO 21 (6-25); CALCIUM 7.9 mg/dL (8.4-10.2); CARBON DIOXIDE 24 mmol/L (22-29); CHLORIDE 105 mmol/L (98-107); CREATININE, SERUM 1.05 mg/dL (0.72-1.25); EST GLOMERULAR FILTRATION RATE > 60 ML/MIN (60-); GLUCOSE 143 mg/dL (74-118); POTASSIUM 3.4 mmol/L (3.5-5.1); SODIUM 139 mmol/L (136-145)
[2018-01-08] MEDS: DULOXETINE HCL 30 MG DELAYED RELEASE PO SCH (08:35)
[2018-01-08] MEDS: VANCOMYCIN 1GM/NS 250 ML 250 ML IV SCH ×2 (08:35→20:41)
[2018-01-08] MEDS: ASPIRIN 81 MG CHEW TAB PO SCH (08:35)
[2018-01-08] MEDS: METOPROLOL SUCCINATE 25 MG TAB XL PO SCH (08:36)
[2018-01-08] MEDS: FUROSEMIDE 40 MG TAB PO SCH ×2 (08:36→17:30)
[2018-01-08] MEDS: GABAPENTIN 300 MG CAP PO SCH ×3 (08:36→20:41)
[2018-01-08] MEDS: PANTOPRAZOLE SOD 40 MG TABEC PO SCH ×2 (08:36→17:30)
[2018-01-08] MEDS: NICOTINE 21 MG/EA PATCH TOP SCH (10:13)
[2018-01-08] MEDS: TIOTROPIUM 18 MCG INH POWDER INH SCH (11:03)
[2018-01-08] MEDS ORDERED: PLAVIX75 MG PO (11:54)
[2018-01-08 17:15] VITALS: BP 158/86
[2018-01-08 20:00] VITALS: BP 131/70
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
[2018-01-08] MEDS ORDERED: ROPINIROLE HCL 4 MG PO SCH (21:00)
[2018-01-08] MEDS ORDERED: WARFARIN SOD 2.5 MG TAB PO SCH (21:00)
[2018-01-08] MEDS: ROPINIROLE HCL 4 MG PO SCH (21:00)
[2018-01-09] VITALS: BP 153/68
[2018-01-09] MEDS ORDERED: HYDROCODONE/APAP 10MG-325MG TAB PO SCH
[2018-01-09] MEDS: SODIUM CHLORIDE 0.9% 1000ML 1,000 ML IV SCH ×4 (01:09→22:04)
[2018-01-09 04:00] VITALS: BP 135/70
[2018-01-09] MEDS: HYDROCODONE/APAP 10MG-325MG TAB PO SCH ×4 (06:25→18:20)
[2018-01-09] MEDS: PIPER-TAZ 3.375 GM 50 ML IV SCH ×3 (06:25→22:00)
[2018-01-09 06:46] LABS: BASOPHILS % 0.3 % (0.0-1.0); EOSINOPHILS # (AUTO) 0.3 (0.0-0.4); EOSINOPHILS % 3.6 % (0.0-6.0); HEMATOCRIT 33.4 % (38.2-49.6); HEMOGLOBIN 10.6 g/dL (14.0-18.0); LYMPHOCYTES # (AUTO) 1.6 (1.0-3.2); LYMPHOCYTES % 19.6 % (18.0-39.1); MEAN CORPUSCULAR HGB CONC 31.7 g/dL (31-35); MEAN CORPUSCULAR VOLUME 88.4 fL (81-99); MONOCYTES % 12.6 % (4.4-11.3); NEUTROPHILS # (AUTO) 5.1 (2.1-6.9); NEUTROPHILS % 63.5 % (38.7-80.0); PLATELET COUNT 267 x10e3/uL (140-360); RED BLOOD COUNT 3.78 x10e6/uL (4.3-5.7); RED CELL DISTRIBUTION WIDTH 16.1 % (11.7-14.4)
[2018-01-09 07:04] LABS: ANION GAP 13.9 mmol/L (8-16); CALCIUM 8.4 mg/dL (8.4-10.2); CREATININE, SERUM 1.24 mg/dL (0.72-1.25); POTASSIUM 3.9 mmol/L (3.5-5.1)
[2018-01-09] MEDS: METOPROLOL SUCCINATE 25 MG TAB XL PO SCH (08:30)
[2018-01-09] MEDS: FUROSEMIDE 40 MG TAB PO SCH ×2 (08:30→17:20)
[2018-01-09] MEDS: CLOPIDOGREL BISULFATE 75 MG TAB PO SCH (08:30)
[2018-01-09] MEDS: GABAPENTIN 300 MG CAP PO SCH ×3 (08:30→21:00)
[2018-01-09] MEDS: PANTOPRAZOLE SOD 40 MG TABEC PO SCH ×2 (08:30→17:20)
[2018-01-09] MEDS: DULOXETINE HCL 30 MG DELAYED RELEASE PO SCH (08:30)
[2018-01-09] MEDS: ASPIRIN 81 MG CHEW TAB PO SCH (08:30)
[2018-01-09] MEDS: NICOTINE 21 MG/EA PATCH TOP SCH (08:35)
[2018-01-09 08:53] VITALS: BP 172/85
[2018-01-09] MEDS: MORPHINE SULFATE 2 MG/ML SYR IV PRN (09:16)
[2018-01-09 09:38] LABS: INR 3.41; PROTHROMBIN TIME 32.3 seconds (11.9-14.5)
[2018-01-09] MEDS: VANCOMYCIN 1GM/NS 250 ML 250 ML IV SCH ×2 (10:00→21:00)
[2018-01-09] MEDS: TIOTROPIUM 18 MCG INH POWDER INH SCH (10:00)
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
[2018-01-09 15:40] VITALS: BP 151/66
[2018-01-09 20:00] VITALS: BP 150/73
[2018-01-09] MEDS: ROPINIROLE HCL 4 MG PO SCH (21:00)
[2018-01-10] VITALS (7 sets, daily range): BP systolic 128–163; BP diastolic 68–95
[2018-01-10] MEDS: MORPHINE SULFATE 2 MG/ML SYR IV PRN (00:45)
[2018-01-10] MEDS: PIPER-TAZ 3.375 GM 50 ML IV SCH ×2 (06:00→14:02)
[2018-01-10] MEDS: HYDROCODONE/APAP 10MG-325MG TAB PO SCH ×4 (06:00→17:03)
[2018-01-10] MEDS: SODIUM CHLORIDE 0.9% 1000ML 1,000 ML IV SCH ×2 (06:49→14:02)
[2018-01-10 07:41] LABS: INR 3.15; PROTHROMBIN TIME 30.4 seconds (11.9-14.5)
[2018-01-10] MEDS: TIOTROPIUM 18 MCG INH POWDER INH SCH (07:49)
[2018-01-10] MEDS: ASPIRIN 81 MG CHEW TAB PO SCH (09:00)
[2018-01-10] MEDS: NICOTINE 21 MG/EA PATCH TOP SCH (09:43)
[2018-01-10] MEDS: VANCOMYCIN 1GM/NS 250 ML 250 ML IV SCH (09:43)
--- NOTE | 2018-01-10 09:59 | Consultation ---
DATE OF CONSULTATION: January 08, 2018 CONSULTATION TO: Dr. Anthony Harris Oj Bonilla is a 62-year-old white male who has been referred to me for anticoagulation for history of deep vein thrombosis and history of atrial fib. SOCIAL HISTORY: Noncontributory. FAMILY HISTORY: Noncontributory. ALLERGIES: CYCLOBENZAPRINE. MEDICATIONS AT THIS TIME 1. Zosyn. 2. Gabapentin. 3. Coumadin. 4. Aspirin. 5. Metolazone. 6. Ondansetron. 7. Nicotine. 8. Duloxetine. 9. Metoprolol. 10. Protonix. 11. Lasix. 12. Morphine. REVIEW OF SYSTEMS HEENT: Normal. CARDIAC: History of atrial fib. History of hypertension. RESPIRATORY: Normal. GI: Normal. : Normal. MUSCULOSKELETAL: The patient has cellulitis of both lower extremities and history of deep vein thrombosis. PHYSICAL EXAMINATION GENERAL: A large-built male. No palpable adenopathy. HEART: Within normal limits. LUNGS: Clear. ABDOMEN: Obese. No hepatosplenomegaly. RECTAL: Exam deferred. CENTRAL NERVOUS SYSTEM: Essentially normal. EXTREMITIES: The patient has scars of surgery over the right lower extremity with skin grafting. The patient has cellulitis up to the level of the knees on both sides with local rise of temperature. LABORATORY DATA: Sodium of 139, potassium 3.4, chloride 75, CO2 24, BUN 22, creatinine 1.0, glucose 143. Hemoglobin of 11.5, hematocrit 36.5, white count 6800, platelets 205,000. INR 2.89. Bilirubin 0.3, SGOT 17, SGPT 12, alkaline phosphatase 93. IMPRESSION 1. Cellulitis of both lower extremities. 2. History of deep vein thrombosis. 3. Anemia of chronic disease. 4. Hypokalemia. 5. History of atrial fibrillation. 6. History of coronary artery disease. 7. History of peripheral neuropathy. 8. History of major depression. PLAN: Keep an eye on the INR. Continue antibiotics. I will confine myself to hematology only. Job#: [id number]
[2018-01-10] MEDS: CLOPIDOGREL BISULFATE 75 MG TAB PO SCH (10:38)
[2018-01-10] MEDS: GABAPENTIN 300 MG CAP PO SCH ×2 (10:38→14:02)
[2018-01-10] MEDS: PANTOPRAZOLE SOD 40 MG TABEC PO SCH ×2 (10:38→17:03)
[2018-01-10] MEDS: METOPROLOL SUCCINATE 25 MG TAB XL PO SCH (10:38)
[2018-01-10] MEDS: DULOXETINE HCL 30 MG DELAYED RELEASE PO SCH (10:38)
[2018-01-10] MEDS: FUROSEMIDE 40 MG TAB PO SCH ×2 (10:38→17:03)
--- NOTE | 2018-01-10 11:32 | Progress Note ---
DATE: Mr. Bonilla is feeling better today. His leg is slightly getting better. Still erythema. PHYSICAL EXAMINATION GENERAL: He is currently alert and oriented. Does not seem to be in acute distress. VITALS: Stable, currently afebrile. HEENT: Normocephalic. NECK: Supple. No JVD. No lymphadenopathy. No thyromegaly. CHEST: Clear bilaterally. HEART: S1 and S2. No S3, S4 or murmur. ABDOMEN: Soft. Bowel sounds are present. EXTREMITIES: Right leg has erythema, and there is edema. LABS: White count 7.99, hemoglobin 10.6, platelets 267. Sed rate 52. Sodium 141, potassium 3.9. Creatinine is 1.24. It was 1.39 on admission. His INR was 2.89. IMPRESSION: Cellulitis. Failed oral antibiotic. History of multiple surgeries, now with recurrent infection. We had workup done as an outpatient, which did not reveal infected hardware. We will probably have to revisit the subject. I am concerned that he failed antibiotic. I am also concerned about his kidney function. We could not do a central line because of high INR. I am going to switch him to daptomycin and discharge him with daptomycin at 4 mg per kg q.24 hours. Will observe his kidney function and CBC and see how he does clinically. Discussed with the patient. Will follow with you. Job#: [id number]
[2018-01-10] MEDS ORDERED: DAPTOMYCIN 400 MG in SODIUM CHLORIDE 0.9% 50 ML IV SCH (12:00)
--- NOTE | 2018-01-10 15:30 | Diagnostic Imaging Report ---
PROCEDURE: CHEST XRAY LINE PLACEMENT 1503 hrs. COMPARISON: Chest x-ray 06/26/17 INDICATIONS: Line PLACEMENT FINDINGS: LINES/TUBES: Left PICC line terminates in the SVC without pneumothorax. LUNGS: No consolidations or edema. PLEURA: No effusions. Stable eventration of the right diaphragm. HEART \T\ MEDIASTINUM: Stable mild cardiomegaly. BONES \T\ SOFT TISSUES: Median sternotomy wires are intact. No focal osseous lesions.. CONCLUSION: Left PICC line as described above. No complication. No new cardiopulmonary process. Dictated by: Tony Ireland M.D. on 01/10/2018 at 15:30 Electronically approved by: Tony Ireland M.D. on 01/10/2018 at 15:30
[2018-01-10] MEDS ORDERED: WARFARIN SOD 3 MG TAB PO SCH (17:00)
[2018-01-10] MEDS ORDERED: WARFARIN SOD 2.5 MG TAB PO SCH (21:00)
[2018-01-10] MEDS ORDERED: ROPINIROLE HCL 2 MG TAB PO SCH (21:00)
== END 2018-01-10 17:57 | disposition home or self-care (01) | DRG 603 ==
LOC: ER 20:38 → ERHOLD 22:10 → MED/SURG3 01-08 15:34
PROVIDERS: ADMIT Family Medicine; ATTEND Family Medicine
PROC: 02HV33Z Insertion of Infusion Device into Superior Vena Cava, Percutaneous Approach (ICD-10-PCS; principal; 2018-01-10)
DX: L03.115 Cellulitis of right lower limb (principal); G62.9 Polyneuropathy, unspecified; I48.91 Unspecified atrial fibrillation; I10 Essential (primary) hypertension; J44.9 Chronic obstructive pulmonary disease, unspecified; Z79.01 Long term (current) use of anticoagulants; D63.8 Anemia in other chronic diseases classified elsewhere; E87.6 Hypokalemia; I25.10 Atherosclerotic heart disease of native coronary artery without angina pectoris; F41.8 Other specified anxiety disorders; Z95.820 Peripheral vascular angioplasty status with implants and grafts; Z95.1 Presence of aortocoronary bypass graft; Z86.718 Personal history of other venous thrombosis and embolism
CPT/HCPCS: 36415; 36569; 71045; 80048; 80053; 80202; 85025; 85610; 85651; 85730; 86140; 87040; 94640; 96360; 96365; 96374; 99284; J2270; J2543; J3370; J7030; J7050

== ENCOUNTER → 2018-01-17 | Outpatient (CLI) | payer OTHER ==
[~2018-01-17] MED LIST changes: +IOPAMIDOL 370 MG/ML 200 ML INFUS..BTL INJ ONE; +SODIUM CHLORIDE 0.9% 250ML 250 ML ONE; +SODIUM CHLORIDE 0.9% 500ML 500 ML ONE; +SODIUM CHLORIDE 0.9% 50ML 100 ML ONE
[2018-01-17 14:51] LABS: CREATININE, SERUM 1.34 mg/dL (0.72-1.25)
--- NOTE | 2018-01-17 16:25 | Diagnostic Imaging Report ---
EXAM: CTA OF THE ABDOMEN INDICATION: \S\AAA FOLLOW UP COMPARISON: None. TECHNIQUE: Multi-detector CT technology was employed. CTA of the abdomen was performed after the administration of IV contrast. IV CONTRAST: 100 mL of Isovue-370 ORAL CONTRAST: None COMPLICATIONS: None RADIATION DOSE: Total DLP: 540 mGy*cm Estimated effective dose: (DLP x 0.015 x size factor) mSv CTDIvol has been reviewed. It is below the limits set by the Radiation Protocol Committee (RPC). For optimization of anatomic evaluation, multiplanar reconstruction, maximum intensity projections, and advanced 3-D off-line postprocessing were performed on a dedicated stand-alone workstation under the direct supervision of the interpreting physician. FINDINGS: Potential study limitations: None. VASCULAR WITH ADVANCED 3-D OFF-LINE POSTPROCESSING: Abdominal aortic aneurysm detail anatomy: Small fusiform aneurysm of the distal infrarenal abdominal aorta, which begins 4.9 cm below the right renal artery and extends down to bifurcation with maximum dimension of 3.1 cm (normal up to 3 cm) and has a length of 4.3 cm. The superior neck measures 2.0 cm and the inferior neck measures 2.1 cm. There is no angulation of the aneurysm. Normal size of the right and left common iliac arteries, measuring 1 cm and on each side. The remaining abdominal aorta is normal in course, caliber, and contour. There is no acute aortic pathology . Aortic plaques: Moderate nonobstructing atherosclerotic calcifications throughout the abdominal aorta. The abdominal aorta measures: 2.2 cm at the supramesenteric segment 2.2 cm at the mesenteric segment 1.8 cm at the renal segment 2.0 cm at the mid infrarenal segment 3.1 cm at the distal infrarenal segment 2.1 cm at the aortic bifurcation. The celiac axis, SMA, and DEANN are patent with associated mild nonobstructing atherosclerotic calcifications. There are single right and 2 left renal arteries which appear patent with associated mild nonobstructing atherosclerotic calcifications. LOWER CHEST: Partially visualized and sternotomy wires. Subsegmental atelectasis in the right lower lobe. Few cystic changes throughout the lungs. ABDOMEN: The liver, spleen, and pancreas appear normal. Status post cholecystectomy. The adrenal glands appear normal. Both kidneys are normal in size, shape, and density. There is no abnormal mass or hydronephrosis. There is no significant retroperitoneal adenopathy. No free fluid or free air within the abdomen. The bowel appears unremarkable. BONES: Unremarkable IMPRESSION: Small distal infrarenal abdominal aortic aneurysm (3.1 cm) with associated moderate nonobstructing atherosclerotic calcifications. Normal size of the remaining abdominal aorta. No acute abdominal aorta pathology. Recommend follow-up CTA abdomen in one year. Signed by: Dr. Carolina Conway M.D. on 01/17/2018 4:22 PM
== END ==
LOC: CT 13:49
PROVIDERS: ATTEND Internal Medicine Cardiovascular Disease
DX: I71.4 Abdominal aortic aneurysm, without rupture (principal)
CPT/HCPCS: 36415; 74175; 82565; 84520; J7040; J7050; Q9967

== ENCOUNTER 2018-05-14 14:13 | Inpatient (IN) | payer MEDICARE, OTHER ==
[~2018-05-14] VITALS: Ht 190.5 cm; Wt 114.8 kg
[~2018-05-14 14:13] MED LIST changes: -IOPAMIDOL 370 MG/ML 200 ML INFUS..BTL INJ ONE; -SODIUM CHLORIDE 0.9% 250ML 250 ML ONE; -SODIUM CHLORIDE 0.9% 500ML 500 ML ONE; -SODIUM CHLORIDE 0.9% 50ML 100 ML ONE
[2018-05-14] MEDS ORDERED: ATORVASTATIN CA20 MG PO (14:40)
[2018-05-14] MEDS ORDERED: ASPIR 8181 MG PO (14:40)
[2018-05-14] MEDS ORDERED: SPIRIVA18 MCG INH (14:40)
[2018-05-14] MEDS ORDERED: ULTRAM50 MG PO (14:40)
[2018-05-14] MEDS ORDERED: SODIUM CHLORIDE 0.9% 250ML 250 ML IV ONE (14:45)
[2018-05-14 14:46] LABS: BASOPHILS % 0.1 % (0.0-1.0); EOSINOPHILS # (AUTO) 0.4 (0.0-0.4); EOSINOPHILS % 3.9 % (0.0-6.0); HEMATOCRIT 23.4 % (38.2-49.6); HEMOGLOBIN 7.1 g/dL (14.0-18.0); LYMPHOCYTES # (AUTO) 1.4 (1.0-3.2); LYMPHOCYTES % 15.1 % (18.0-39.1); MEAN CORPUSCULAR HEMOGLOBIN 25.9 pg (28-32); MEAN CORPUSCULAR HGB CONC 30.3 g/dL (31-35); MEAN CORPUSCULAR VOLUME 85.4 fL (81-99); MONOCYTES # (AUTO) 0.9 (0.2-0.8); MONOCYTES % 10.4 % (4.4-11.3); NEUTROPHILS # (AUTO) 6.3 (2.1-6.9); NEUTROPHILS % 69.7 % (38.7-80.0); PLATELET COUNT 212 x10e3/uL (140-360); RED BLOOD COUNT 2.74 x10e6/uL (4.3-5.7); RED CELL DISTRIBUTION WIDTH 17.2 % (11.7-14.4)
[2018-05-14 14:59] LABS: ALBUMIN 3.4 g/dL (3.5-5.0); ALBUMIN/GLOBULIN RATIO 1.1 (0.8-2.0); ANION GAP 11.7 mmol/L (8-16); CALCIUM 8.3 mg/dL (8.4-10.2); CREATININE, SERUM 2.11 mg/dL (0.72-1.25); POTASSIUM 3.7 mmol/L (3.5-5.1)
[2018-05-14 15:05] LABS: CREATINE KINASE MB 4.2 ng/mL (0-5.0)
[2018-05-14 15:07] LABS: PARTIAL THROMBOPLASTIN TIME 66.6 seconds (23.8-35.5)
[2018-05-14 15:09] LABS: INR 4.66; PROTHROMBIN TIME 41.3 seconds (11.9-14.5)
--- NOTE | 2018-05-14 15:10 | Diagnostic Imaging Report ---
PROCEDURE: A single AP view of the chest. COMPARISON: 01/10/18 INDICATIONS: ANEMIA, WEAKNESS FINDINGS: Lines/tubes: None. Lungs: The lungs are well inflated and clear. There is no evidence of pneumonia or pulmonary edema. Pleura: There is no pleural effusion or pneumothorax. Heart and mediastinum: The heart and the mediastinum are unremarkable. Median sternotomy wires are again seen. Bones: No acute bony abnormality. Partially imaged lumbar spine fixation rods. IMPRESSION: 1. No acute cardiopulmonary disease. Dictated by: Luis F Tellez M.D. on 05/14/2018 at 15:13 Electronically approved by: Luis F Tellez M.D. on 05/14/2018 at 15:13
[2018-05-14] MEDS ORDERED: PANTOPRAZOLE 40 MG 10ML VIAL IV STA (15:13)
[2018-05-14] MEDS ORDERED: PANTOPRAZOLE INJ 40 MG in SODIUM CHLORIDE 0.9% 50ML 50 ML IV SCH (15:15)
[2018-05-14] MEDS ORDERED: PHYTONADIONE 10 MG/ML AMP SQ ONE (15:45)
[2018-05-14] MEDS ORDERED: PANTOPRAZOLE INJ 80 MG in SODIUM CHLORIDE 0.9% 100 ML IV SCH (16:00)
[2018-05-14] MEDS: SODIUM CHLORIDE 0.9% 1000ML 1,000 ML IV SCH ×2 (16:14→23:54)
[2018-05-14] MEDS: PANTOPRAZOL 40MG/SOD CHL 0.9% 50 ML IV SCH ×2 (16:31→21:28)
[2018-05-14 17:41] VITALS: BP 112/49
[2018-05-14 17:56] VITALS: BP 112/49
[2018-05-14 18:29] LABS: HEMATOCRIT 24.2 % (38.2-49.6); HEMOGLOBIN 7.3 g/dL (14.0-18.0)
--- NOTE | 2018-05-14 19:58 | Diagnostic Imaging Report ---
Tagged-RBC GI Bleed Study Clinical information: 63-year-old male with dark black stools x 48 hours, fatigue, weakness and low hemoglobin. Discussion: The patient's own red blood cells were labeled with 30 mCi of technetium-99m pertechnetate using the in vitro method (UltraTag). Dynamic images of the abdomen were obtained through 60 minutes. Distribution of tracer activity appears physiologic throughout the abdomen. No abnormal accumulation of tracer is seen within the gastrointestinal lumen. Impression: No scan evidence of active gastrointestinal bleeding at this time. Signed by: Dr. Natividad Jeffery M.D. on 05/14/2018 7:54 PM
[2018-05-14 20:38] VITALS: BP 145/65
[2018-05-14] MEDS: ATORVASTATIN 40 MG TAB PO SCH (21:00)
[2018-05-14] MEDS ORDERED: ROPINIROLE HCL 4 MG PO SCH (21:00)
[2018-05-14] MEDS ORDERED: ATORVASTATIN 20 MG TAB PO SCH (21:00)
[2018-05-14 21:28] VITALS: BP 145/65
[2018-05-14] MEDS: ROPINIROLE HCL 2 MG TAB PO SCH (21:28)
[2018-05-15] VITALS (7 sets, daily range): BP systolic 111–136; BP diastolic 42–75
[2018-05-15] MEDS ORDERED: SODIUM CHLORIDE 0.9% 100 ML 100 ML ONE (00:38)
[2018-05-15] MEDS: PANTOPRAZOL 40MG/SOD CHL 0.9% 50 ML IV SCH ×2 (00:47→06:13)
[2018-05-15] MEDS: DULOXETINE HCL 30 MG DELAYED RELEASE PO SCH (08:51)
[2018-05-15] MEDS: METOPROLOL SUCCINATE 50 MG TAB XL PO SCH (08:51)
[2018-05-15] MEDS: FUROSEMIDE 40 MG TAB PO SCH ×2 (08:51→16:49)
[2018-05-15] MEDS ORDERED: PANTOPRAZOLE SOD 40 MG TABEC PO SCH (09:00)
[2018-05-15] MEDS ORDERED: METOLAZONE 5 MG TAB PO PRN (09:00)
[2018-05-15] MEDS ORDERED: METOPROLOL SUCCINATE 25 MG TAB XL PO SCH (09:00)
[2018-05-15] MEDS ORDERED: SODIUM CHLORIDE 0.9% 250ML 250 ML ONE ×2 (09:31→20:43)
[2018-05-15 09:39] LABS: BASOPHILS % 0.1 % (0.0-1.0); EOSINOPHILS # (AUTO) 0.4 (0.0-0.4); EOSINOPHILS % 4.4 % (0.0-6.0); HEMATOCRIT 25.1 % (38.2-49.6); HEMOGLOBIN 7.5 g/dL (14.0-18.0); LYMPHOCYTES # (AUTO) 1.2 (1.0-3.2); LYMPHOCYTES % 12.5 % (18.0-39.1); MEAN CORPUSCULAR HEMOGLOBIN 25.8 pg (28-32); MEAN CORPUSCULAR HGB CONC 29.9 g/dL (31-35); MEAN CORPUSCULAR VOLUME 86.3 fL (81-99); MONOCYTES % 10.3 % (4.4-11.3); NEUTROPHILS # (AUTO) 6.9 (2.1-6.9); NEUTROPHILS % 71.8 % (38.7-80.0); PLATELET COUNT 208 x10e3/uL (140-360); RED BLOOD COUNT 2.91 x10e6/uL (4.3-5.7); RED CELL DISTRIBUTION WIDTH 16.9 % (11.7-14.4)
[2018-05-15] MEDS: TIOTROPIUM 18 MCG INH POWDER INH SCH (09:50)
[2018-05-15 10:01] LABS: INR 2.23; PROTHROMBIN TIME 23.2 seconds (11.9-14.5)
[2018-05-15] MEDS: SODIUM CHLORIDE 0.9% 1000ML 1,000 ML IV SCH ×2 (12:00→20:34)
[2018-05-15] MEDS: TRAMADOL HCL 50 MG TAB PO PRN (12:50)
[2018-05-15] MEDS ORDERED: FUROSEMIDE INJ 10 MG/ML 2 ML VIAL IV PRN (17:30)
[2018-05-15 19:17] LABS: HEMATOCRIT 26.9 % (38.2-49.6); HEMOGLOBIN 8.5 g/dL (14.0-18.0)
[2018-05-15] MEDS ORDERED: MIDAZOLAM HCL 2 MG/2 ML VIAL ONE (19:17)
[2018-05-15] MEDS ORDERED: FENTANYL CITRATE/PF 100MCG/2 ML INJ ONE (19:17)
[2018-05-15] MEDS: ATORVASTATIN 40 MG TAB PO SCH (21:43)
[2018-05-15] MEDS: GABAPENTIN 300 MG CAP PO SCH (21:43)
[2018-05-15] MEDS: ROPINIROLE HCL 2 MG TAB PO SCH (21:43)
[2018-05-16] VITALS (8 sets, daily range): BP systolic 132–161; BP diastolic 6–70
[2018-05-16] MEDS: SODIUM CHLORIDE 0.9% 1000ML 1,000 ML IV SCH ×3 (00:01→16:21)
[2018-05-16] MEDS ORDERED: SODIUM CHLORIDE 0.9% 250ML 250 ML ONE (01:29)
[2018-05-16] MEDS: TIOTROPIUM 18 MCG INH POWDER INH SCH (06:00)
[2018-05-16 06:40] LABS: INR 1.37; PROTHROMBIN TIME 15.9 seconds (11.9-14.5)
[2018-05-16 06:53] LABS: BASOPHILS % 0.2 % (0.0-1.0); EOSINOPHILS # (AUTO) 0.4 (0.0-0.4); HEMATOCRIT 30.1 % (38.2-49.6); HEMOGLOBIN 9.3 g/dL (14.0-18.0); LYMPHOCYTES # (AUTO) 1.2 (1.0-3.2); LYMPHOCYTES % 13.7 % (18.0-39.1); MEAN CORPUSCULAR HEMOGLOBIN 26.8 pg (28-32); MEAN CORPUSCULAR HGB CONC 30.9 g/dL (31-35); MEAN CORPUSCULAR VOLUME 86.7 fL (81-99); MONOCYTES # (AUTO) 0.9 (0.2-0.8); MONOCYTES % 10.2 % (4.4-11.3); NEUTROPHILS % 70.1 % (38.7-80.0); PLATELET COUNT 193 x10e3/uL (140-360); RED BLOOD COUNT 3.47 x10e6/uL (4.3-5.7); RED CELL DISTRIBUTION WIDTH 16.1 % (11.7-14.4)
[2018-05-16] MEDS: METOPROLOL SUCCINATE 50 MG TAB XL PO SCH (08:00)
[2018-05-16] MEDS ORDERED: CEPHALEXIN 500 MG CAP PO SCH (09:00)
--- NOTE | 2018-05-16 09:59 | Operative Report ---
DATE OF PROCEDURE: May 16, 2018 REFERRING PHYSICIAN: Dr. William Almaguer. PROCEDURE PERFORMED: Esophagogastroduodenoscopy with biopsies. INDICATIONS FOR ESOPHAGOGASTRODUODENOSCOPY: Anemia and history of melena. MEDICATION: Patient was done under MAC. Please see anesthesiologist's note. PROCEDURE: With patient in the left lateral decubitus position, flexible fiberoptic Olympus gastroscope was introduced into the esophagus under direct visualization without any difficulty. There was some patchy erythema noted in distal esophagus. The scope was then advanced with ease into the stomach, traversing a small sliding hiatal hernia. Mucosa overlying the antrum and the body revealed some patchy erythema and mild to moderate edema and biopsies were obtained and sent to stain for H. pylori. The pylorus was of normal contour and shape. It was intubated with ease and scope was advanced all the way to the 2nd portion of the duodenum. The scope was then withdrawn slowly. The mucosa overlying the proximal 2nd portion and the duodenal bulb appeared to be within normal limits. The scope was then withdrawn back into the stomach and retroflexed. The mucosa overlying the fundus and the cardia appeared to be within normal limits. The scope was then straightened out and was subsequently withdrawn. Patient tolerated the procedure well. IMPRESSION: 1. Distal esophagitis, mild. 2. Small hiatal hernia. 3. Gastritis biopsied. Biopsy sent to stain for H. pylori. PLAN: Follow up histology. Continue Protonix 40 mg one p.o. a.c. b.i.d. Findings do not explain the patient's blood loss. Will proceed with small bowel series in a.m. Job#: [id number] cc:WILLIAM ALMAGUER MD
[2018-05-16] MEDS: FUROSEMIDE 40 MG TAB PO SCH ×2 (10:02→16:39)
[2018-05-16] MEDS: DULOXETINE HCL 30 MG DELAYED RELEASE PO SCH (10:02)
[2018-05-16 11:51] LABS: HEMATOCRIT 30.4 % (38.2-49.6); HEMOGLOBIN 9.6 g/dL (14.0-18.0)
[2018-05-16] MEDS: PANTOPRAZOLE SOD 40 MG TABEC PO SCH (16:39)
[2018-05-16 18:30] LABS: HEMATOCRIT 31.7 % (38.2-49.6)
[2018-05-16] MEDS: ROPINIROLE HCL 2 MG TAB PO SCH (20:52)
[2018-05-16] MEDS: ATORVASTATIN 40 MG TAB PO SCH (20:52)
[2018-05-16] MEDS: GABAPENTIN 300 MG CAP PO SCH (20:52)
[2018-05-17] VITALS (7 sets, daily range): BP systolic 132–150; BP diastolic 61–66
[2018-05-17 00:58] LABS: HEMATOCRIT 31.6 % (38.2-49.6); HEMOGLOBIN 9.8 g/dL (14.0-18.0)
[2018-05-17] MEDS: SODIUM CHLORIDE 0.9% 1000ML 1,000 ML IV SCH ×2 (04:39→07:52)
[2018-05-17] MEDS: TIOTROPIUM 18 MCG INH POWDER INH SCH (05:00)
[2018-05-17 05:30] LABS: HEMATOCRIT 31.4 % (38.2-49.6); HEMOGLOBIN 9.9 g/dL (14.0-18.0)
[2018-05-17 06:40] LABS: ALANINE AMINOTRANSFERASE 20 IU/L (0-55); ALBUMIN 3.5 g/dL (3.5-5.0); ALKALINE PHOSPHATASE 133 IU/L (40-150); ANION GAP 11.8 mmol/L (8-16); BLOOD UREA NITROGEN 15 mg/dL (7-26); BUN/CREATININE RATIO 13 (6-25); CALCIUM 8.6 mg/dL (8.4-10.2); CARBON DIOXIDE 29 mmol/L (22-29); CHLORIDE 103 mmol/L (98-107); CREATININE, SERUM 1.13 mg/dL (0.72-1.25); EST GLOMERULAR FILTRATION RATE > 60 ML/MIN (60-); GLUCOSE 127 mg/dL (74-118); POTASSIUM 3.8 mmol/L (3.5-5.1); SODIUM 140 mmol/L (136-145)
[2018-05-17 06:53] LABS: INR 1.18; PROTHROMBIN TIME 14.1 seconds (11.9-14.5)
[2018-05-17] MEDS: PANTOPRAZOLE SOD 40 MG TABEC PO SCH ×2 (08:41→17:03)
[2018-05-17] MEDS: DULOXETINE HCL 30 MG DELAYED RELEASE PO SCH (08:41)
[2018-05-17] MEDS: FUROSEMIDE 40 MG TAB PO SCH ×2 (08:41→17:03)
[2018-05-17] MEDS: METOPROLOL SUCCINATE 50 MG TAB XL PO SCH (08:44)
[2018-05-17] MEDS: TRAMADOL HCL 50 MG TAB PO PRN (09:27)
[2018-05-17 12:03] LABS: HEMATOCRIT 30.5 % (38.2-49.6); HEMOGLOBIN 9.6 g/dL (14.0-18.0)
[2018-05-17 18:45] LABS: HEMATOCRIT 32.2 % (38.2-49.6)
[2018-05-17] MEDS ORDERED: LIDOCAINE HCL 2% LOCAL INJ 5 ML SDV VIAL INJ ONE (18:52)
[2018-05-17] MEDS ORDERED: PROPOFOL IV EMULSION 10 MG/ML 50 ML VIAL ONE (18:52)
[2018-05-17] MEDS: ATORVASTATIN 40 MG TAB PO SCH (19:59)
[2018-05-17] MEDS: ROPINIROLE HCL 2 MG TAB PO SCH (19:59)
[2018-05-17] MEDS: GABAPENTIN 300 MG CAP PO SCH (20:00)
[2018-05-18 00:05] VITALS: BP 135/60
[2018-05-18] MEDS ORDERED: CALCIUM CARBONATE 500 MG CHEWABLE TABS PO PRN (03:30)
[2018-05-18 04:00] VITALS: BP 125/63
[2018-05-18 05:25] LABS: BASOPHILS % 0.2 % (0.0-1.0); EOSINOPHILS # (AUTO) 0.4 (0.0-0.4); EOSINOPHILS % 5.3 % (0.0-6.0); HEMATOCRIT 31.2 % (38.2-49.6); HEMOGLOBIN 9.7 g/dL (14.0-18.0); LYMPHOCYTES # (AUTO) 1.3 (1.0-3.2); LYMPHOCYTES % 16.4 % (18.0-39.1); MEAN CORPUSCULAR HEMOGLOBIN 26.6 pg (28-32); MEAN CORPUSCULAR HGB CONC 31.1 g/dL (31-35); MEAN CORPUSCULAR VOLUME 85.5 fL (81-99); MONOCYTES % 12.6 % (4.4-11.3); NEUTROPHILS # (AUTO) 5.3 (2.1-6.9); NEUTROPHILS % 64.8 % (38.7-80.0); PLATELET COUNT 199 x10e3/uL (140-360); RED BLOOD COUNT 3.65 x10e6/uL (4.3-5.7); RED CELL DISTRIBUTION WIDTH 16.4 % (11.7-14.4)
[2018-05-18 08:00] VITALS: BP 124/56
[2018-05-18 09:18] VITALS: BP 124/56
== END 2018-05-18 09:50 | disposition home or self-care (01) | DRG 378 ==
LOC: ER 14:13 → ERHOLD 15:56 → UNDOADMOB 16:27 → ERHOLD 16:27 → IMCU 17:29 → ERHOLD 17:29 → MED/SURG3 05-17 10:40 → OBSVTOIN 05-17 11:55
PROVIDERS: ADMIT Internal Medicine; ATTEND Internal Medicine
PROC: 30233N1 Transfusion of Nonautologous Red Blood Cells into Peripheral Vein, Percutaneous Approach (ICD-10-PCS; 2018-05-15)
PROC: 0DB78ZX Excision of Stomach, Pylorus, Via Natural or Artificial Opening Endoscopic, Diagnostic (ICD-10-PCS; principal; 2018-05-16 10:00)
DX: K92.1 Melena (principal); D62 Acute posthemorrhagic anemia; D68.32 Hemorrhagic disorder due to extrinsic circulating anticoagulants; I12.9 Hypertensive chronic kidney disease with stage 1 through stage 4 chronic kidney disease, or unspecified chronic kidney disease; N18.3 Chronic kidney disease, stage 3 (moderate); I48.91 Unspecified atrial fibrillation; I25.10 Atherosclerotic heart disease of native coronary artery without angina pectoris; Z95.1 Presence of aortocoronary bypass graft; J44.9 Chronic obstructive pulmonary disease, unspecified; I73.9 Peripheral vascular disease, unspecified; G62.9 Polyneuropathy, unspecified; K20.9 Esophagitis, unspecified; K29.70 Gastritis, unspecified, without bleeding; K44.9 Diaphragmatic hernia without obstruction or gangrene; Z79.01 Long term (current) use of anticoagulants; Z79.02 Long term (current) use of antithrombotics/antiplatelets; Z79.82 Long term (current) use of aspirin; T45.515A Adverse effect of anticoagulants, initial encounter; Y92.009 Unspecified place in unspecified non-institutional (private) residence as the place of occurrence of the external cause; Z86.010 Personal history of colon polyps; K57.30 Diverticulosis of large intestine without perforation or abscess without bleeding; Z86.718 Personal history of other venous thrombosis and embolism
CPT/HCPCS: 36415; 36430; 43239; 71045; 78278; 80053; 82270; 82550; 82553; 83735; 84484; 85014; 85018; 85025; 85610; 85730; 86850; 86870; 86880; 86900; 86905; 86920; 86922; 88305; 88312; 93005; 99001; 99284; A9512; G0378; J2001; J2250; J3430; J7030; J7050; P9016

== ENCOUNTER 2018-07-05 00:03 | Observation (INO) | payer OTHER, MEDICARE ==
[~2018-07-05] VITALS: Ht 190.5 cm; Wt 109.8 kg
[~2018-07-05 00:03] MED LIST changes: +ULTRAM50 MG PO
[2018-07-05] MEDS ORDERED: PANTOPRAZOLE 40 MG 10ML VIAL IV STA (00:11)
[2018-07-05] MEDS ORDERED: SODIUM CHLORIDE 0.9% 1000ML 1,000 ML IV STA (00:11)
[2018-07-05 00:37] LABS: BASOPHILS % 0.2 % (0.0-1.0); EOSINOPHILS # (AUTO) 0.4 (0.0-0.4); EOSINOPHILS % 4.1 % (0.0-6.0); HEMATOCRIT 35.6 % (38.2-49.6); HEMOGLOBIN 10.8 g/dL (14.0-18.0); LYMPHOCYTES # (AUTO) 1.2 (1.0-3.2); LYMPHOCYTES % 14.3 % (18.0-39.1); MEAN CORPUSCULAR HEMOGLOBIN 25.6 pg (28-32); MEAN CORPUSCULAR HGB CONC 30.3 g/dL (31-35); MEAN CORPUSCULAR VOLUME 84.4 fL (81-99); MONOCYTES # (AUTO) 0.9 (0.2-0.8); MONOCYTES % 10.6 % (4.4-11.3); NEUTROPHILS # (AUTO) 6.1 (2.1-6.9); NEUTROPHILS % 69.9 % (38.7-80.0); PLATELET COUNT 252 x10e3/uL (140-360); RED BLOOD COUNT 4.22 x10e6/uL (4.3-5.7); RED CELL DISTRIBUTION WIDTH 17.4 % (11.7-14.4)
[2018-07-05 00:51] LABS: INR 1.45; PROTHROMBIN TIME 16.6 seconds (11.9-14.5)
[2018-07-05 00:52] LABS: PARTIAL THROMBOPLASTIN TIME 36.9 seconds (23.8-35.5)
[2018-07-05 00:59] LABS: ALBUMIN 3.6 g/dL (3.5-5.0); ALBUMIN/GLOBULIN RATIO 0.9 (0.8-2.0); CREATININE, SERUM 1.35 mg/dL (0.72-1.25); MAGNESIUM 2.6 MG/DL (1.3-2.1)
--- NOTE | 2018-07-05 01:14 | Diagnostic Imaging Report ---
CHEST SINGLE (PORTABLE), 07/05/2018 12:11 AM Technique: CHEST SINGLE (PORTABLE) Comparison: 12/31/2017. Clinical history: Syncope Findings: See Impression. Lungs are poorly Impression: Limited portable radiograph of the chest. 1. Stable cardiomediastinal silhouette status post median sternotomy. 2. New linear bibasilar opacities, favor atelectasis. Consider short-term follow-up upright PA and lateral. 3. No effusion or pneumothorax. Signed by: Dr Indigo Daily MD on 07/05/2018 1:10 AM
[2018-07-05 01:19] LABS: CREATINE KINASE MB 2.6 ng/mL (0-5.0)
--- NOTE | 2018-07-05 01:19 | Diagnostic Imaging Report ---
EXAMINATION: Head CT without contrast. HISTORY:Syncope. COMPARISON:CTA head and neck from 01/14/2017. TECHNIQUE: Multidetector axial images were obtained from the foramen magnum to the vertex without contrast. The images were reconstructed using brain and bone algorithms. Thin section brain images were reformatted into coronal and sagittal planes. Dose modulation, iterative reconstruction, and/or weight based adjustment of the mA/kV was utilized to reduce the radiation dose to as low as reasonably achievable. Intravenous contrast: None IMAGE QUALITY: Acceptable. FINDINGS: Skull/scalp: No lytic or blastic. lesions. No surgical changes. Parenchyma: Nonspecific bilateral frontoparietal patchy white matter hypodensity are likely related to small vessel ischemic changes. No acute hemorrhage, mass or acute major vascular territorial infarct. Arteries: No density suggestive of thrombosis. Atherosclerotic calcification in bilateral carotid siphon and V4 segment of left vertebral artery. Dural sinuses: No abnormal density suggestive of thrombosis. Ventricles: Mild compensated dilatation due to volume loss. No hydrocephalus. Extra-axial spaces: No abnormal density. Brain volume: Normal for age. Craniocervical junction: No mass, Chiari malformation, or basilar invagination. Sella: No mass. Paranasal/mastoid sinuses: Imaged portions unremarkable. IMPRESSION: No acute intracranial abnormality. Mild supratentorial white matter microvascular ischemic changes. Generalized age-related cerebral volume loss. Signed by: Dr. Mile Jones M.D. on 07/05/2018 1:16 AM
[2018-07-05 03:26] LABS: BILIRUBIN,URINE NEGATIVE (NEGATIVE); CLARITY,URINE CLEAR (CLEAR); COLOR,URINE YELLOW (YELLOW); KETONES,URINE NEGATIVE (NEGATIVE); LEUKOCYTE ESTERASE ,URINE NEGATIVE (NEGATIVE); NITRITE,URINE NEGATIVE (NEGATIVE); PROTEIN,URINE DIPSTICK NEGATIVE (NEGATIVE); URINE UROBILINOGEN 0.2 mg/dL (0.2 - 1)
[2018-07-05 03:36] LABS: BACTERIA,URINE RARE /HPF; EPITHELIAL CELLS,URINE RARE /LPF; WBC,URINE (MAN) 0-5 /HPF (0-5)
[2018-07-05 04:01] LABS: AMPHETAMINES SCREEN,URINE NEGATIVE (NEGATIVE); PHENCYCLIDINE SCREEN,URINE NEGATIVE (NEGATIVE)
[2018-07-05 04:02] LABS: BENZODIAZEPINES SCREEN,URINE NEGATIVE (NEGATIVE)
[2018-07-05] MEDS ORDERED: ONDANSETRON HCL INJ 2 MG/ML VIAL IV PRN (04:15)
[2018-07-05] MEDS: SODIUM CHLORIDE 0.9% 1000ML 1,000 ML IV SCH ×2 (04:40→15:10)
[2018-07-05] MEDS: FAMOTIDINE 20 MG/2 ML VIAL IV SCH ×2 (04:40→16:23)
--- NOTE | 2018-07-05 05:47 | History and Physical ---
REASON FOR ADMISSION: Syncope. HISTORY OF PRESENT ILLNESS: Patient is a 63-year-old gentleman, who presented with syncope after taking a Viagra followed by 5 hotdogs, who had a witnessed syncopal episode by his , who felt like "he was ". She did precordial thump and he aroused, called EMS. They got there and they witnessed him having syncopal episode as well. He was noticed to be hypotensive with systolic blood pressures in the 70s. Currently, now, he is asymptomatic, feels good and his blood pressure in the 130s. He denied any chest pain, fever, chills, nausea, vomiting, headaches at that time. PAST MEDICAL HISTORY: Significant for coronary artery disease, chronic kidney disease stage 2, hypertension, peripheral arterial disease. MEDICATIONS: See JAN. ALLERGIES: SEE JAN. SOCIAL: Smoker. No alcohol. Lives at home with his . PHYSICAL EXAMINATION VITALS: Temperature is 98.6, blood pressure 122/76, pulse 74, sats 98% on room air. GENERAL: In no apparent distress. NECK: Supple. CARDIOVASCULAR: Regular rate and rhythm. LUNGS: Clear to auscultation bilaterally. ABDOMEN: Good bowel sounds. Soft, nontender. EXTREMITIES: No clubbing, cyanosis. NEUROLOGIC: Nonfocal. ASSESSMENT AND PLAN 1. Syncope. Most likely secondary to the Viagra and the hotdogs with the sodium nitrates causing him to be hypotensive, but will go ahead and rule out myocardial infarction. Will consult cardiology. Place him on telemetry. 2. Coronary artery disease. Continue with current care. 3. Chronic kidney disease, stage 3. Continue monitor. 4. Hypotension. Continue current care. Please see hospital chart for full details. Job#: [id number]
[2018-07-05] MEDS ORDERED: NICOTINE 21 MG/EA PATCH ONE (06:29)
[2018-07-05] MEDS ORDERED: NICOTINE 21 MG/EA PATCH TOP PRN (06:30)
[2018-07-05 07:07] LABS: CREATINE KINASE 145 IU/L (30-200)
[2018-07-05 14:03] LABS: CREATINE KINASE MB 5.1 ng/mL (0-5.0)
[2018-07-05 15:46] VITALS: BP 176/79
[2018-07-05 15:48] VITALS: BP 176/79
[2018-07-05 19:32] VITALS: BP 176/79
--- NOTE | 2018-07-06 02:10 | Consultation ---
DATE OF CONSULTATION: July 05, 2018 CARDIOLOGY CONSULTATION REASON FOR CONSULTATION: Syncope. HISTORY OF PRESENT ILLNESS: Mr. Bonilla is a pleasant 63-year-old man with a history of coronary artery disease, status post aortocoronary bypass; peripheral arterial disease with previous revascularization; ectatic/aneurysmal abdominal aorta; hypertension; dyslipidemia; carotid disease with known occluded carotid, status post left carotid stent with history of atrial fibrillation and prior issues with GI bleeding recurrently, who presents to [facility] via the emergency department after an episode of loss of consciousness preceded by lightheadedness and hypotension as well as diaphoresis which occurred after patient took Viagra followed by intake of 5 hotdogs. He denied associated chest discomfort or dyspnea. He denied headaches. He is currently symptom free. REVIEW OF SYSTEMS: Twelve systems reviewed, negative except for as noted above. PAST MEDICAL HISTORY: As per HPI. SOCIAL HISTORY: Former smoker. Occasional alcohol use. No drugs. FAMILY HISTORY: Noncontributory. PHYSICAL EXAMINATION VITALS: Temperature 98.5, heart rate 76, respiratory rate 17, and blood pressure 176/79. GENERAL: No acute distress. Alert. NECK: No JVD. CHEST: Clear to auscultation. CARDIOVASCULAR: Regular rate and rhythm. Normal S1 and S2. No S3, no S4. Systolic ejection murmur 1/6. ABDOMEN: Soft and nontender. EXTREMITIES: Trace edema. CARDIOVASCULAR MEDICATIONS: Reviewed. Home medications reviewed and reconciled with nurse. STUDIES: Sodium 146, potassium 4, chloride 102, bicarbonate 27, BUN 16, creatinine 1.35, and glucose 120. Normal transaminases. Brain-natriuretic peptide was 27. Cardiac enzymes were negative times 3. Hemoglobin 10.6, white blood cells 8.6, and platelets 252,000. Chest x-ray and CT head reviewed. Telemetry: Normal sinus rhythm. ASSESSMENT 1. Syncope, suspect related to hypotension from side effect/interaction between sildenafil and nitrates from p.o. intake. 2. Atrial fibrillation. 3. Anemia. 4. History of gastrointestinal bleed. 5. Atrial fibrillation. 6. Carotid stenosis, status post carotid stent. 7. Peripheral arterial disease. 8. Coronary artery disease. 9. Chronic obstructive pulmonary disease. RECOMMENDATIONS 1. Resume cardiovascular medications. 2. I have counseled patient on avoidance of nitrates whether in oral intake or with prescription drugs in association with any phosphodiesterase inhibitor like sildenafil or Cialis. I have further counseled Oj on avoidance of sildenafil at this point and syncope precautions discussed and to be abided by for the following 3 months. Echocardiogram reviewed, preserved left ventricular systolic function. Okay to discharge today from a cardiovascular standpoint. Job#: [id number]
== END 2018-07-05 19:57 | disposition home or self-care (01) ==
LOC: ER 00:03 → ERHOLD 04:17 → IMCU 15:33
PROVIDERS: ADMIT Internal Medicine; ATTEND Internal Medicine
DX: R55 Syncope and collapse (principal); I25.10 Atherosclerotic heart disease of native coronary artery without angina pectoris; I12.9 Hypertensive chronic kidney disease with stage 1 through stage 4 chronic kidney disease, or unspecified chronic kidney disease; N18.3 Chronic kidney disease, stage 3 (moderate); I95.9 Hypotension, unspecified; I48.91 Unspecified atrial fibrillation; D64.9 Anemia, unspecified; I65.29 Occlusion and stenosis of unspecified carotid artery; E11.51 Type 2 diabetes mellitus with diabetic peripheral angiopathy without gangrene; J44.9 Chronic obstructive pulmonary disease, unspecified
CPT/HCPCS: 36415; 70450; 71045; 80053; 80307; 81001; 82550; 82553; 83605; 83735; 83880; 84484; 85025; 85610; 85730; 87040; 87086; 93005; 93306; 97139; 99284; G0378; J7030

== ENCOUNTER 2018-10-18 21:04 | Emergency (ER) | payer OTHER ==
[~2018-10-18] VITALS: Ht 190.5 cm; Wt 109.8 kg
--- OUTSIDE RECORDS SUMMARY | 2018-10-18 21:08 | XMS REPORT | Clinical Summary ---
Author Author [facility] Organization [facility] Address Unknown Phone Unavailable Care Team Providers Care Crab Butcher Name Role Phone Jarret Riojas MD PCP Allergies Comments Active Allergy Reactions Severity Noted Date Sulfamethoxazole-Trimetho Palpitations Low 01/26/2017 prim hallucinations Cyclobenzaprine 01/26/2017 Medications End Date Status Medication Sig Dispensed Refills Start Date Active warfarin (COUMADIN) 2.5 TAKE 1 TABLET 3 MG tablet BY MOUTH ON 8 MON,WED, FRI AND 1/2 TABLET OTHER DAYS OF THE WEEK Active clopidogrel (PLAVIX) 75 Take 75 mg by 3 mg tablet mouth daily. 8 Active DULoxetine (CYMBALTA) 60 Take 60 mg by 1 MG capsule mouth daily. 8 Active furosemide (LASIX) 80 mg TAKE 1 TABLET 2 tablet TWICE A DAY 8 ORALLY 90 DAYS Active metoprolol succinate XL Take 100 mg 3 (TOPROL-XL) 100 mg 24 hr by mouth 8 tablet daily. Active omeprazole (PriLOSEC) 40 Take 40 mg by 1 MG capsule mouth 2 (two) 8 times a day. Active rOPINIRole (REQUIP) 4 MG TAKE ONE 1 tablet TABLET BY 8 MOUTH EVERY MID-EVENING Active SPIRIVA WITH HANDIHALER INHALE 1 3 18 mcg per inhalation CAPSULE VIA 8 capsule HANDIHALER ONCE DAILY AT THE SAME TIME EVERY DAY Active BREO ELLIPTA 200-25 INHALE 1 PUFF 4 mcg/dose blister with EVERY DAY 8 device powder for inhalation Active traMADol (ULTRAM) 50 mg Take 50 mg by 1 tablet mouth every 6 8 (six) hours as needed. Active gabapentin (NEURONTIN) TAKE ONE 0 400 mg capsule CAPSULE BY 8 MOUTH TWICE A DAY AND 2 CAPSULES AT BEDTIME 03/14/2019 Active atorvastatin (LIPITOR) 80 Take 1 tablet 30 tablet 11 MG tabletIndications: (80 mg total) 8 Mixed hyperlipidemia, by mouth Carotid stenosis, daily. asymptomatic, left, Carotid occlusion, right, History of syncope, Traumatic brain injury with loss of consciousness, subsequent encounter, Tobacco abuse Active aspirin (ECOTRIN) 81 MG Take 81 mg by 0 enteric coated tablet mouth daily. 05/11/2018 nicotine (NICODERM CQ) 21 Place 1 patch 30 patch 0 mg/24 hrIndications: on the skin 8 Smoking, Carotid daily for 30 occlusion, right, Carotid days. stenosis, asymptomatic, right, Mixed hyperlipidemia, Essential hypertension Active Problems Problem Noted Date Left carotid stenosis 03/15/2018 COPD (chronic obstructive pulmonary disease) Encounters Care Team Description Date Type Specialty Asked, No Pcp 08/31/2018 Telephone Neurology David Pandya MD 08/06/2018 Refill Neurology David Pandya MD Neuropathy (Primary Dx) 06/28/2018 Orders Only Neurology David Pandya MD Neuropathy (Primary Dx) 06/28/2018 Transcribe Neurology Orders Cecilia Martínez 06/27/2018 Telephone Neurology David Pandya MD Smoking (Primary Dx); Carotid occlusion, right; Carotid stenosis, asymptomatic, right; Mixed hyperlipidemia; Essential hypertension 04/11/2018 Office Visit Neurology Rizwana Gunderson MD 03/15/2018 Anesthesia Radiology Event David Pandya MD Left carotid stenosis; Right carotid artery occlusion 03/15/2018 Hospital Radiology Encounter David Pandya MD Mixed hyperlipidemia (Primary Dx); Occlusion of left carotid artery; Occlusion of right carotid artery; Craniocerebral trauma, subsequent encounter; Tobacco abuse 03/14/2018 Lab Lab David Pandya MD Mixed hyperlipidemia (Primary Dx); Carotid stenosis, asymptomatic, left; Carotid occlusion, right; History of syncope; Traumatic brain injury with loss of consciousness, subsequent encounter; Tobacco abuse 03/14/2018 Office Visit Neurology David Pandya MD Carotid stenosis, asymptomatic, left (Primary Dx) 03/14/2018 Orders Only Neurology after 10/17/2017 Family History Medical History Relation Name Comments Pancreatic cancer Father Breast cancer Mother Relation Name Status Comments Father Mother Alive Social History Date Tobacco Use Types Packs/Day Years Used Current Some Day Smoker Cigarettes 0.5 52 Smokeless Tobacco: Former User Alcohol Use Drinks/Week oz/Week Comments Yes socially Sex Assigned at Date Recorded Not on file Industry Job Start Date Occupation Not on file Not on file Not on file Travel End Travel History Travel Start No recent travel history available. Last Filed Vital Signs Time Taken Vital Sign Reading 04/11/2018 9:13 AM CDT Blood Pressure 129/74 04/11/2018 9:13 AM CDT Pulse 71 03/15/2018 3:49 PM CDT Temperature 36.9 C (98.5 F) 03/15/2018 5:24 PM CDT Respiratory Rate 18 03/15/2018 5:24 PM CDT Oxygen Saturation 96% - Inhaled Oxygen - Concentration 04/11/2018 9:13 AM CDT Weight 110 kg (243 lb 3.2 oz) 04/11/2018 9:13 AM CDT Height 190.5 cm (6' 3") 04/11/2018 9:13 AM CDT Body Mass Index 30.4 Plan of Treatment Health Maintenance Due Date Last Done Comments COLON CANCER SCREENING 2005 SHINGRIX VACCINE (1 of 2) 2005 ZOSTER VACCINE 2015 INFLUENZA VACCINE 06/13/2018 Implants Device Identifier Shelf Expiration Date Model / Serial / Lot Implanted Type Area Manufactur er 01/10/2019 [id number] / / [id number] Device Vasclr Clsr Vasoactive Cardiovasc N/A: N/A Intstnl Peptd 6fr Angio-Seal - ular [id number] Implants Implanted: 03/15/2018 (Quantity not on file) [id number] / / Catheter Angio Technical Operations Manager Ii 5fr 100cm Surgical N/A: N/A BSC [employer] [place] - Implants; PERIPHERAL [id number] Expanders; INTERVENTI Implanted: 03/15/2018 (Quantity not Extenders; ON on file) Surgical VASCULAR Wires JERZY Procedures Comments Procedure Name Priority Date/Time Associated Diagnosis IR 3D RECON SLICES Routine 03/15/2018 SNAPSHOTS RDMPS 2:24 PM CDT IR ANGIOGRAM CEREBRAL Routine 03/15/2018 Left carotid stenosis BILATERAL 2:24 PM CDT Right carotid artery occlusion ARTERIAL LINE Routine 03/15/2018 12:21 PM CDT Procedure Note - Rizwana Gunderson MD - 03/15/2018 12:21 PM CDT Arterial line Performed by: RIZWANA GUNDERSON Authorized by: RIZWANA GUNDERSON Patient Location: OR Start Time: 03/15/2018 12:21 PM End Time: 03/15/2018 12:21 PM Staff: Anesthesio logist: RIZWANA GUNDERSON Performed by: Anesthesijayleen green Pre-proced ure: patient identified , IV checked, site and side verified, risks and benefits discussed, procedure verified, surgical consent complete, patient position confirmed, monitors and equipment checked and pre-op evaluation complete MSBT: antiseptic used, all elements of maximal sterile barrier technique followed, hand hygiene performed, cap/gown used by other personnel and solutions labeled Indication s: Indication s: hemodynami c monitoring Anesthesia : Anesthesia : Local infiltrati on Procedure Details: Arterial Line placement: Placed pre-induct ion Line placement site: Radial Line placement side: Left Arterial line gauge: 20 G Number of attempts: 1 Ultrasound guidance used: No Post-proce dure: Post-proce dure: Sterile dressing applied Post procedure circulatio n, sensation, movement: Normal Patient tolerance: Patient tolerated the procedure well with no immediate complicati ons PLATELET FUNCTION P2Y12 Routine 03/15/2018 11:29 AM CDT ZZESTIMATED GFR Routine 03/14/2018 2:14 PM CDT VITAMIN B12 LEVEL Routine 03/14/2018 Mixed hyperlipidemia 2:14 PM CDT Occlusion of left carotid artery Occlusion of right carotid artery Craniocerebral trauma, subsequent encounter Tobacco abuse THYROID STIMULATING Routine 03/14/2018 Mixed hyperlipidemia HORMONE 2:14 PM CDT Occlusion of left carotid artery Occlusion of right carotid artery Craniocerebral trauma, subsequent encounter Tobacco abuse T3 Routine 03/14/2018 Mixed hyperlipidemia 2:14 PM CDT Occlusion of left carotid artery Occlusion of right carotid artery Craniocerebral trauma, subsequent encounter Tobacco abuse T4, FREE Routine 03/14/2018 Mixed hyperlipidemia 2:14 PM CDT Occlusion of left carotid artery Occlusion of right carotid artery Craniocerebral trauma, subsequent encounter Tobacco abuse SEDIMENTATION RATE Routine 03/14/2018 Mixed hyperlipidemia 2:14 PM CDT Occlusion of left carotid artery Occlusion of right carotid artery Craniocerebral trauma, subsequent encounter Tobacco abuse SYPHILIS TREPONEMAL IGG Routine 03/14/2018 Mixed hyperlipidemia 2:14 PM CDT Occlusion of left carotid artery Occlusion of right carotid artery Craniocerebral trauma, subsequent encounter Tobacco abuse PARTIAL THROMBOPLASTIN Routine 03/14/2018 Mixed hyperlipidemia TIME (PTT) 2:14 PM CDT Occlusion of left carotid artery Occlusion of right carotid artery Craniocerebral trauma, subsequent encounter Tobacco abuse PROTHROMBIN TIME WITH INR Routine 03/14/2018 Mixed hyperlipidemia 2:14 PM CDT Occlusion of left carotid artery Occlusion of right carotid artery Craniocerebral trauma, subsequent encounter Tobacco abuse LIPID PANEL Routine 03/14/2018 Mixed hyperlipidemia 2:14 PM CDT Occlusion of left carotid artery Occlusion of right carotid artery Craniocerebral trauma, subsequent encounter Tobacco abuse HOMOCYSTINE, PLASMA Routine 03/14/2018 Mixed hyperlipidemia 2:14 PM CDT Occlusion of left carotid artery Occlusion of right carotid artery Craniocerebral trauma, subsequent encounter Tobacco abuse HEMOGLOBIN A1C Routine 03/14/2018 Mixed hyperlipidemia 2:14 PM CDT Occlusion of left carotid artery Occlusion of right carotid artery Craniocerebral trauma, subsequent encounter Tobacco abuse FOLATE RBC (GROUP TEST) Routine 03/14/2018 Mixed hyperlipidemia 2:14 PM CDT Occlusion of left carotid artery Occlusion of right carotid artery Craniocerebral trauma, subsequent encounter Tobacco abuse COMPREHENSIVE METABOLIC Routine 03/14/2018 Mixed hyperlipidemia PANEL 2:14 PM CDT Occlusion of left carotid artery Occlusion of right carotid artery Craniocerebral trauma, subsequent encounter Tobacco abuse HC COMPLETE BLD COUNT Routine 03/14/2018 Mixed hyperlipidemia W/AUTO DIFF 2:14 PM CDT Occlusion of left carotid artery Occlusion of right carotid artery Craniocerebral trauma, subsequent encounter Tobacco abuse after 10/17/2017 Results * IR 3D Recon Slices Snapshots RDMPS (03/15/2018 2:24 PM CDT) Narrative Performed At Non-Reportable/No report needed. [facility] Performing Organization Address City/State/Zipcode Phone Number [facility] [address] [place] [address] * IR Angiogram Cerebral (03/15/2018 2:24 PM CDT) Narrative Performed At CEREBRAL ARTERIOGRAM [facility] FLUORO TIME : 9.1 Minutes [facility] EXPOSURE: ELI 1737 mGy COMPARISON: None. CLINICAL HISTORY: 62-year-old patient with previous history of left carotid stenting. Patient presenting now with IntraStent stenosis. The patient is here for diagnostic cerebral arteriogram and possible restenting of the left internal carotid. TECHNIQUE: The risk and benefits of the procedure were explained to the patient. The risks include but are not limited to infection, hematoma, vascular damage, renal failure, stroke, worsening of the neurological condition and contrast reaction. Informed consent was obtained. Under neuroleptic anesthesia provided by Anesthesiology and utilizing a right femoral percutaneous approach, the following procedures were performed: Aortic arch injection just examination in biplane projections. Right common carotid injection neck examination in biplane projections. Selective right common carotid injection head examination in biplane, obliques and magnification views. Right external carotid injection head examination in biplane projections. Left common carotid injection neck examination in biplane projections. Selective left internal carotid injection head examination in biplane, obliques and magnification is views. Left external carotid injection head examination in biplane projections. Selective left vertebral artery injection neck examination in biplane projections. Selective left vertebral artery injection head examination in biplane projections. Selective right vertebral artery injection neck examination in biplane projections. Selective right vertebral artery injection head examination in biplane projections. FINDINGS: The aortic arch injection is normal without evidence of aneurysms or dissections. There is 30% stenosis at the origin of the left common carotid secondary to an eccentric atherosclerotic plaque. The left vertebral artery is dominant. The right common carotid injection neck examination demonstrate complete occlusion of the bulbar portion of the right internal carotid secondary to a calcified atherosclerotic plaques. There is 30% stenosis of the proximal aspect of the right external carotid secondary to an atherosclerotic disease. The Right common carotid injection head examination demonstrate again occlusion of the cervical right internal carotid with slow flow recanalization of the supra of the ophthalmic artery via branches of the external carotid. There is minimal filling of the supraclinoid right internal carotid. The right external carotid injection head examination demonstrate 30% stenosis of the proximal aspect of the right external carotid. Retrograde filling of the ophthalmic artery from this injection is demonstrated with visualization of the choroidal blush and filling of the supraclinoid right internal carotid. The left common carotid injection neck examination demonstrate status post stenting of the distal common carotid and proximal cervical internal carotid with 60% IntraStent due to intimal hyperplasia. There is normal antegrade flow into the intracranial circulation. The left internal carotid injection head examination demonstrate normal antegrade flow into the intracranial circulation without evidence of focal stenosis, aneurysms or arteriovenous formations. The venous phase is within normal limits. A was cross-filling via the anterior communicating artery into the right FELA and right MCA branches The left external carotid injection head examination demonstrate normal branching without evidence of arteriovenous fistula. The left vertebral artery injection neck examination demonstrate normal origin of the vertebral artery without dissections. 30% stenosis of the V2 segment of the left vertebral artery at the level of the C3 vertebral bodymost likely secondary to an extrinsic compression from osteophyte. Reconstitution of the occipital artery from the C1 anastomotic branch of the vertebral artery and filling of the left external carotid is identified. The left vertebral artery injection head examination demonstrate normal antegrade flow into the intracranial circulation without evidence of focal stenosis, aneurysms or arteriovenous formations. Cross-filling from the right posterior communicating artery into the supraclinoid right internal carotid is identified. The right vertebral artery injection neck examination demonstrate normal vertebral artery without stenosis or dissections. The right vertebral artery injection head examination demonstrate normal antegrade flow into the intracranial circulation without evidence of focal stenosis, aneurysms or arteriovenous formations. There were no complications during the procedure. At the end of the procedure the femoral sheath was removed and hemostasis was obtained using manual compression and Angio-Seal device. The patient was transferred to PACU without changes in the neurological status. IMPRESSION: 1. Complete occlusion of the bulbar portion of the right internal carotid. 2. Patient is status post stenting of the cervical left internal carotid extending into the left common carotid. 3. 60% in-stent stenosis of the cervical portion of the left internal carotid associated with the previous stent placement. 4. Cross-filling via the anterior communicating artery and posterior communicating artery into the right ICA territory. 5. Negative foraneurysms or arteriovenous malformations. 6. No complications. [facility]-[id number] Procedure Note Hm Interface, Radiology Results Incoming - 03/15/2018 4:20 PM CDT CEREBRAL ARTERIOGRAM FLUORO TIME : 9.1 Minutes [facility] EXPOSURE: ELI 1737 mGy COMPARISON: None. CLINICAL HISTORY: 62-year-old patient with previous history of left carotid stenting. Patient presenting now with IntraStent stenosis. The patient is here for diagnostic cerebral arteriogram and possible restenting of the left internal carotid. TECHNIQUE: The risk and benefits of the procedure were explained to the patient. The risks include but are not limited to infection, hematoma, vascular damage, renal failure, stroke, worsening of the neurological condition and contrast reaction. Informed consent was obtained. Under neuroleptic anesthesia provided by Anesthesiology and utilizing a right femoral percutaneous approach, the following procedures were performed: Aortic arch injection just examination in biplane projections. Right common carotid injection neck examination in biplane projections. Selective right common carotid injection head examination in biplane, obliques and magnification views. Right external carotid injection head examination in biplane projections. Left common carotid injection neck examination in biplane projections. Selective left internal carotid injection head examination in biplane, obliques and magnification is views. Left external carotid injection head examination in biplane projections. Selective left vertebral artery injection neck examination in biplane projections. Selective left vertebral artery injection head examination in biplane projections. Selective right vertebral artery injection neck examination in biplane projections. Selective right vertebral artery injection head examination in biplane projections. FINDINGS: The aortic arch injection is normal without evidence of aneurysms or dissections. There is 30% stenosis at the origin of the left common carotid secondary to an eccentric atherosclerotic plaque. The left vertebral artery is dominant. The right common carotid injection neck examination demonstrate complete occlusion of the bulbar portion of the right internal carotid secondary to a calcified atherosclerotic plaques. There is 30% stenosis of the proximal aspect of the right external carotid secondary to an atherosclerotic disease. The Right common carotid injection head examination demonstrate again occlusion of the cervical right internal carotid with slow flow recanalization of the supra of the ophthalmic artery via branches of the external carotid. There is minimal filling of the supraclinoid right internal carotid. The right external carotid injection head examination demonstrate 30% stenosis of the proximal aspect of the right external carotid. Retrograde filling of the ophthalmic artery from this injection is demonstrated with visualization of the choroidal blush and filling of the supraclinoid right internal carotid. The left common carotid injection neck examination demonstrate status post stenting of the distal common carotid and proximal cervical internal carotid with 60% IntraStent due to intimal hyperplasia. There is normal antegrade flow into the intracranial circulation. The left internal carotid injection head examination demonstrate normal antegrade flow into the intracranial circulation without evidence of focal stenosis, aneurysms or arteriovenous formations. The venous phase is within normal limits. A was cross-filling via the anterior communicating artery into the right FELA and right MCA branches The left external carotid injection head examination demonstrate normal branching without evidence of arteriovenous fistula. The left vertebral artery injection neck examination demonstrate normal origin of the vertebral artery without dissections. 30% stenosis of the V2 segment of the left vertebral artery at the level of the C3 vertebral body most likely secondary to an extrinsic compression from osteophyte. Reconstitution of the occipital artery from the C1 anastomotic branch of the vertebral artery and filling of the left external carotid is identified. The left vertebral artery injection head examination demonstrate normal antegrade flow into the intracranial circulation without evidence of focal stenosis, aneurysms or arteriovenous formations. Cross-filling from the right posterior communicating artery into the supraclinoid right internal carotid is identified. The right vertebral artery injection neck examination demonstrate normal vertebral artery without stenosis or dissections. The right vertebral artery injection head examination demonstrate normal antegrade flow into the intracranial circulation without evidence of focal stenosis, aneurysms or arteriovenous formations. There were no complications during the procedure. At the end of the procedure the femoral sheath was removed and hemostasis was obtained using manual compression and Angio-Seal device. The patient was transferred to PACU without changes in the neurological status. IMPRESSION: 1. Complete occlusion of the bulbar portion of the right internal carotid. 2. Patient is status post stenting of the cervical left internal carotid extending into the left common carotid. 3. 60% in-stent stenosis of the cervical portion of the left internal carotid associated with the previous stent placement. 4. Cross-filling via the anterior communicating artery and posterior communicating artery into the right ICA territory. 5. Negative for aneurysms or arteriovenous malformations. 6. No complications. [facility]-[id number] Performing Organization Address City/State/Zipcode Phone Number [facility] [address] [place] [address] * Platelet function P2Y12 (03/15/2018 11:29 AM CDT) Platelet function P2Y12 SEE COMMENT [facility] DEPARTMENT OF Comment: PATHOLOGY AND Test results are reported in [facility] P2Y12 Reaction Units (PRU). Platelet Function P2Y12 indicates the extent of platelet aggregation in the presence of P2Y12 antagonist. Definitive therapeutic reference ranges have not been established for this test. For patients on clopidogrel, clinical studies have shown that a P2Y12 result above 230 to 240 PRU is associated with an increase risk of arterial thrombosis, while a result less than 180 PRU is associated with an increased risk of bleeding. Test results may be adversely affected by therapy with the GPIIb/IIIa inhibitors.Drugs that affect platelet function may be detected up to 14 days after ingestion.The platelet function recovery time varies among individuals and is longer for patients with renal dysfunction.Other test limitations include patients with low hematocrit values or low platelet counts. This test is not intended for evaluation of patients with inherited platelet disorders. Footnote--------- Unable to perform testing, specimen is CLOTTED.Recollect requested for P2Y_ (tests).ELISEO SAMPLE/[id number] BY PARAS AT 03/15/201812:13. Credit issued. Specimen Blood Performing Organization Address City/State/Zipcode Phone Number [facility] [place] [address] PATHOLOGY AND GENOMIC MEDICINE * Syphilis treponemal IgG (03/14/2018 2:14 PM CDT) Syphilis treponemal IgG Non-reactiveComment: Non-reactive [facility] DEPARTMENT OF Non-reactive: No serological PATHOLOGY AND evidence of Syphilis infection GENOMIC MEDICINE Specimen Serum Performing Organization Address City/[facility] Phone Number [facility] DEPARTMENT OF [address] [place] [id number] PATHOLOGY AND GENOMIC MEDICINE * Homocystine, plasma (03/14/2018 2:14 PM CDT) Homocysteine 17.6 (H) 0.0 - 15.0 umol/L [facility] DEPARTMENT OF Comment: PATHOLOGY AND The risk for coronary vascular GENOMIC MEDICINE disease increases progressively with homocysteine concentration.A 3.4 times greater risk is associated with a homocysteine concentration of greater than 15.8 umol/L as compared to a concentration below 14.1 umol/L. Specimen Plasma specimen Performing Organization Address City/[facility]/Zipcode Phone Number [facility] DEPARTMENT [address] [address] PATHOLOGY AND [employer]: [employer] MEDICINE * Estimated GFR (03/14/2018 2:14 PM CDT) GFR Non Af Amer 68 mL/min/1.73 m2 [facility] DEPARTMENT OF PATHOLOGY AND GENOMIC MEDICINE GFR Af Amer 82 mL/min/1.73 m2 [facility] DEPARTMENT OF Comment: PATHOLOGY AND Chronic kidney disease: <60 GENOMIC MEDICINE mL/min/1.73m2 Kidney failure: <15 mL/min/1.73m2 The estimated GFR is calculated from the IDMS-traceable Modification of Diet in Renal Disease Equation. The accuracy of the calculation is poor when the creatinine is normal. Calculated values >90 mL/min/1.73m2 are not reported. This equation has not been validated in children (<18 years), women, the elderly (>70 years), or ethnic groups other than Caucasians and Americans. Specimen Plasma specimen Performing Organization Address [facility] [place] [address] PATHOLOGY AND Content Syndicate: [employer] MEDICINE * Partial thromboplastin time, activated (03/14/2018 2:14 PM CDT) PTT 34.3 23.0 - 36.0 sec [facility] DEPARTMENT OF Comment: PATHOLOGY AND PTT therapeutic range for [facility] unfractionated heparin is 61.0-112.0 seconds which corresponds to Anti-Xa 0.3-0.7 U/ml. Specimen Blood Performing Organization Address [facility] [place] [address] PATHOLOGY AND Content Syndicate: [employer] [facility] * Sedimentation rate (03/14/2018 2:14 PM CDT) Sedimentation rate 23 (H) 0 - 10 mm/hr [facility] DEPARTMENT OF PATHOLOGY AND GENOMIC MEDICINE Specimen Blood Performing Organization Address City/[facility] [place] [address] PATHOLOGY AND Content Syndicate: [employer] [facility] * Prothrombin time with INR (03/14/2018 2:14 PM CDT) Prothrombin time 14.5 12.0 - 15.0 sec [facility] DEPARTMENT OF PATHOLOGY AND GENOMIC MEDICINE INR 1.1 [facility] DEPARTMENT OF Comment: PATHOLOGY AND The International Normalized [facility] MEDICINE Ratio (INR) is a therapeutic monitoring tool for patients who are stable on oral anticoagulant therapy. An INR of 2.0-3.0 is suggested for deep vein thrombosis/pulmonary embolism. Specimen Blood Performing Organization Address City/[facility]/Zipcode Phone Number [facility] [address] [place] [id number] PATHOLOGY AND GENOMIC MEDICINE * CBC with platelet and differential (03/14/2018 2:14 PM CDT) WBC 8.79 4.50 - 11.00 k/uL [facility] DEPARTMENT OF PATHOLOGY AND GENOMIC MEDICINE RBC 4.60 4.40 - 6.00 m/uL [facility] DEPARTMENT OF PATHOLOGY AND GENOMIC MEDICINE HGB 12.2 (L) 14.0 - 18.0 g/dL [facility] DEPARTMENT OF PATHOLOGY AND GENOMIC MEDICINE HCT 39.3 (L) 41.0 - 51.0 % [facility] DEPARTMENT OF PATHOLOGY AND GENOMIC MEDICINE MCV 85.4 82.0 - 100.0 fL [facility] DEPARTMENT OF PATHOLOGY AND GENOMIC MEDICINE MCH 26.5 (L) 27.0 - 34.0 pg [facility] DEPARTMENT OF PATHOLOGY AND GENOMIC MEDICINE MCHC 31.0 31.0 - 37.0 g/dL [facility] DEPARTMENT OF PATHOLOGY AND GENOMIC MEDICINE RDW - SD 50.7 37.0 - 55.0 fL [facility] DEPARTMENT OF PATHOLOGY AND GENOMIC MEDICINE MPV 10.5 8.8 - 13.2 fL [facility] DEPARTMENT OF PATHOLOGY AND GENOMIC MEDICINE Platelet count 242 150 - 400 k/uL [facility] DEPARTMENT OF PATHOLOGY AND GENOMIC MEDICINE Nucleated RBC 0.00 /100 WBC [facility] DEPARTMENT OF PATHOLOGY AND GENOMIC MEDICINE Neutrophils 67.8 39.0 - 69.0 % [facility] DEPARTMENT OF PATHOLOGY AND GENOMIC MEDICINE Lymphocytes 17.3 (L) 25.0 - 45.0 % [facility] DEPARTMENT OF PATHOLOGY AND GENOMIC MEDICINE Monocytes 9.8 0.0 - 10.0 % [facility] DEPARTMENT OF PATHOLOGY AND GENOMIC MEDICINE Eosinophils 4.0 0.0 - 5.0 % [facility] DEPARTMENT OF PATHOLOGY AND GENOMIC MEDICINE Basophils 0.3 0.0 - 1.0 % [facility] DEPARTMENT OF PATHOLOGY AND GENOMIC MEDICINE Immature granulocytes 0.8Comment: "Immature 0.0 - 1.0 % [facility] DEPARTMENT OF granulocytes" (promyelocytes, PATHOLOGY AND myelocytes, metamyelocytes) GENOMIC MEDICINE Specimen Blood Performing Organization Address City/[facility]/Zipcode Phone Number [facility] [address] [place] [address] PATHOLOGY AND GENOMIC MEDICINE * T3 (03/14/2018 2:14 PM CDT) T3 137 80 - 200 ng/dL [facility] DEPARTMENT OF PATHOLOGY AND GENOMIC MEDICINE Specimen Plasma specimen Performing Organization Address [facility] [place] [address] PATHOLOGY AND [facility] * Thyroid stimulating hormone (03/14/2018 2:14 PM CDT) TSH 1.49 0.27 - 4.20 uIU/mL [facility] DEPARTMENT OF PATHOLOGY AND GENOMIC MEDICINE Specimen Plasma specimen Performing Organization Address [facility] [place] [address] PATHOLOGY AND [facility] * T4, free (03/14/2018 2:14 PM CDT) T4, free 0.9 0.9 - 1.7 ng/dL [facility] DEPARTMENT OF PATHOLOGY AND GENOMIC MEDICINE Specimen Plasma specimen Performing Organization Address [facility] [place] [address] PATHOLOGY AND GENOMIC MEDICINE * Hemoglobin A1c (03/14/2018 2:14 PM CDT) Hemoglobin A1C 6.4 (H) 4.0 - 5.6 % [facility] DEPARTMENT OF Comment: PATHOLOGY AND HbA1c cutoffs for diagnosing GENOMIC MEDICINE diabetes: 4.0% - 5.6%=normal 5.7% - 6.4%=increased risk for diabetes (prediabetes) >=6.5%=diabetes Goals for glycemic control (ADA 2016) < 7.0%Target for non adults with diabetes. More or less stringent targets may be appropriate for individual patients. <7.5% Target for Children and adolescents with type 1 diabetes. Specimen Blood Performing Organization Address [facility] Hospitalcotx Phone Number [facility] [place] [address] PATHOLOGY AND [facility] MED[facility] * Folate RBC (group test) (03/14/2018 2:14 PM CDT) RBC folate 1,101 499 - 1,504 ng/mL [facility] DEPARTMENT OF PATHOLOGY AND GENOMIC MEDICINE Specimen Blood Performing Organization Address [facility] [address] PATHOLOGY AND [facility] * Vitamin B12 level (03/14/2018 2:14 PM CDT) Vitamin B12 445 211 - 946 pg/mL [facility] DEPARTMENT OF Comment: PATHOLOGY AND Significant overlap exists GENOMIC MEDICINE between normal and deficiency states. However, most patients with deficiencies will have Serum B12 <200 pg/mL. Specimen Serum Performing Organization Address City/[facility] Phone Number [facility] DEPARTMENT OF [address] [place] [address] PATHOLOGY AND GENOMIC MEDICINE * Lipid panel (03/14/2018 2:14 PM CDT) Cholesterol 188 <200 mg/dL [facility] DEPARTMENT OF PATHOLOGY AND GENOMIC MEDICINE Triglycerides 328 (H) <150 mg/dL [facility] DEPARTMENT OF PATHOLOGY AND GENOMIC MEDICINE HDL cholesterol 23 (L) >40 mg/dL [facility] DEPARTMENT OF PATHOLOGY AND GENOMIC MEDICINE LDL cholesterol 129 (H)Comment: Result <100 mg/dL [facility] DEPARTMENT obtained by direct LDL PATHOLOGY AND measurement GENOMIC MEDICINE Lipid panel SeeBelow [facility] DEPARTMENT OF interpretation Comment: PATHOLOGY AND Total Cholesterol GENOMIC MEDICINE (mg/dL) <200 Desirable 200-239Borderline -high >=240High Triglycerides (mg/dL) <150 Normal 150-199Borderline -high 200-499High >=500Very high HDL Cholesterol (mg/dL) <40Low (male) <40Low (female) LDL Cholesterol (mg/dL) <100 Optimal 100-129Near or above optimal 130-159Borderline -high 160-189High >=190Very high Risk Catergories that modify LDL goals. Risk Catergories LDL goal (mg/dL) CHD and CHD risk equivalent<100 (10-year risk >20%) Multiple (2+) risk factors <130 (10-year risk=<20%) 0-1 risk factors <160 (<10-year risk) Defining levels of lipids in metabolic syndrome Triglycerides >=150 mg/dL HDL Cholesterol Men <40 mg/dL Women <40 mg/dL Non-HDL cholesterol is a second target for therapy in persons with high triglycerides (>=200 mg/dL) Specimen Plasma specimen Performing Organization Address City/State/Zipcode Phone Number [facility] DEPARTMENT OF [address] [place] [address] PATHOLOGY AND GENOMIC MEDICINE * Comprehensive metabolic panel (03/14/2018 2:14 PM CDT) Sodium 140 135 - 148 mEq/L [facility] DEPARTMENT OF PATHOLOGY AND GENOMIC MEDICINE Potassium 4.0 3.5 - 5.0 mEq/L [facility] DEPARTMENT OF PATHOLOGY AND GENOMIC MEDICINE Chloride 97 (L) 98 - 112 mEq/L [facility] DEPARTMENT OF PATHOLOGY AND GENOMIC MEDICINE CO2 29 24 - 31 mEq/L [facility] DEPARTMENT OF PATHOLOGY AND GENOMIC MEDICINE Anion gap 14 7 - 15 mEq/L [facility] DEPARTMENT OF Comment: PATHOLOGY AND Starting from February GENOMIC MEDICINE , anion gap calculation no longer incorporates potassium. Please note the change. BUN 21 8 - 23 mg/dL [facility] DEPARTMENT OF PATHOLOGY AND GENOMIC MEDICINE Creatinine 1.1 0.7 - 1.2 mg/dL [facility] DEPARTMENT OF PATHOLOGY AND GENOMIC MEDICINE Glucose 120 (H) 65 - 99 mg/dL [facility] DEPARTMENT OF PATHOLOGY AND GENOMIC MEDICINE Calcium 8.8 8.8 - 10.2 mg/dL [facility] DEPARTMENT OF PATHOLOGY AND GENOMIC MEDICINE Protein 8.2 6.3 - 8.3 g/dL [facility] DEPARTMENT OF Comment: PATHOLOGY AND Hasty GENOMIC MEDICINE 4.6-7.0 g/dL 1 week 4.4-7.6 g/dL 7 months-1year 5.1-7.3 g/dL 1-2 years5.6-7 .5 g/dL >3 years6.0-8 .0 g/dL 18-150 6.3-8.3 g/dL Albumin 3.7 3.5 - 5.0 g/dL [facility] DEPARTMENT OF PATHOLOGY AND GENOMIC MEDICINE A/G ratio 0.8 0.7 - 3.8 [facility] DEPARTMENT OF PATHOLOGY AND GENOMIC MEDICINE Alkaline phosphatase 125 40 - 129 U/L [facility] DEPARTMENT OF PATHOLOGY AND GENOMIC MEDICINE AST 26 10 - 50 U/L [facility] DEPARTMENT OF PATHOLOGY AND GENOMIC MEDICINE ALT 15 5 - 50 U/L [facility] DEPARTMENT OF PATHOLOGY AND GENOMIC MEDICINE Total bilirubin 0.4 0.0 - 1.2 mg/dL [facility] DEPARTMENT OF PATHOLOGY AND GENOMIC MEDICINE Specimen Plasma specimen Performing Organization Address City/State/Zipcode Phone Number [facility] DEPARTMENT OF [address] [place] [address] PATHOLOGY AND GENOMIC MEDICINE after 10/17/2017 Insurance Payer Benefit Subscriber ID Type Phone Address Plan / Group AETNA AETNA PPO xxxxxxxxxx PPO OPEN CHOICE MEDICARE MEDICARE xxxxxxxxxx Medicare [place], [place] PART A Advance Directives Patient has advance care planning documents on file. For more information, sahara gutierrez contact: Kelton Crockett [address] [place] [address]
--- OUTSIDE RECORDS SUMMARY | 2018-10-18 21:08 | XMS REPORT | Continuity of Care Document ---
Author Author Arline bradley Organization Interface Address Unknown Phone Unavailable Problems Problem Status Onset Date Classification Date Reported Comments Source S32.0 - FRACTURE OF LUMBAR VERTEBRA Active 03/02/2016 [facility] V70.1 - PSYCH EXAM-AUTH Active 08/20/2012 [facility] [place] Temperature change<sup>2</sup> Resolved 06/16/2010 Problem 08/22/2012 2pt's called my attention to the pt's bedside, pt is awake malert and oriented but reports feeling hot and sudden tiredness, temperature 101.6, Dr baer called, ordered chest Xray, blood culture and ua urine culture and sensitivity, orders carried out [facility] [place] Temperature change<sup>2</sup> Resolved 06/16/2010 Problem 03/05/2016 pt's called my attention to the pt's bedside, pt is awake malert and oriented but reports feeling hot and sudden tiredness, temperature 101.6, Dr baer called, ordered chest Xray, blood culture and ua urine culture and sensitivity, orders carried out [facility] Anxiety Inactive Problem 08/22/2012 [facility] [place] Fracture Active Problem 08/22/2012 [facility] [place] Infection<sup>1</sup> Active Problem 08/22/2012 1elevated wbc sec ondary to redness pin sites. 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 would discuss with primary team this am to decide what is best thing to do [facility] Obesity Active Problem 03/05/2016 [facility] Pain Active Problem 03/05/2016 [facility] Spinal fusion Active Problem 03/05/2016 [facility] Medications Medication Details Route Status Patient Instructions Ordering Provider Order Date Source Allergies, Adverse Reactions, Alerts Substance Category Reaction Severity Reaction type Status Date Reported Comments Source Flexeril Assertion Drug allergy Active [facility] shellfish Assertion Drug allergy Active [facility] Immunizations Immunization Date Given Site Status Last Updated Comments Source Results Order Name Results Value Reference Range Date Interpretation Comments Source Spine thoracolumbar 2 views DX Spine thoracolumbar 2 views DX EXAM: XR thoracolumbar spine 2 views DATE: 03/02/2016 1:27 PM CDT INDICATION: Pain with radiculopathy COMPARISON: None available. TECHNIQUE: 2 views thoracolumbar spine. FINDINGS: AP and lateral views of the thoracolumbar spine. * Bones: * 5 [id number], lumbar-type vertebra are present. * There is continued satisfactory appearance of the posterior fusion spanning T12-L2 with bilateral transpedicular screws and connecting vertical rods. No perihardware lucency or evidence of interval hardware complication is identified. Satisfactory alignment is maintained. * There is unchanged height and contour of the chronic L1 superior compression deformity, with increased, small bridging osteophytes between T12 and L1 circumferentially. There no new or superimposed acute osseous abnormality is identified. * Lower thoracic spine mild disc height loss and moderate size anterior marginal osteophytes are unchanged. * Soft Tissue: No soft tissue abnormality is identified. IMPRESSION: 1. Continued satisfactory appearance of the T12-L2 posterior fusion, with unchanged height and contour of the chronic L1 superior compression deformity. No evidence of hardware failure. 2. No new or superimposed acute osseous abnormality identified. 3. If desired, CT myelogram may be helpful to evaluate patient's symptoms of radiculopathy. 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
--- OUTSIDE RECORDS SUMMARY | 2018-10-18 21:08 | XMS REPORT | Clinical Summary ---
Author Author ALMITA Infused IndustriesClearwater Valley HospitalKinems [employer] 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 Active omeprazole (PRILOSEC) 40 Take 80 mg by 0 MG capsule mouth daily. Active clopidogrel (PLAVIX) 75 Take 75 mg by 0 mg tablet mouth daily. Active ATORVASTATIN CALCIUM Take 80 mg by 0 (ATORVASTATIN ORAL) mouth daily . Active mometasone-formoterol Inhale 2 0 (DULERA) 200-5 puffs by mcg/actuation inhaler mouth via inhaler 2 (two) times daily. Active rOPINIRole (REQUIP) 1 MG Take 1 mg by 0 tablet mouth nightly. 02/14/2018 amiodarone (PACERONE) 200 Take 1 tablet 60 tablet 1 MG tablet (200 mg 7 total) by mouth 2 (two) times daily. 02/14/2018 lisinopril Take 1 tablet 30 tablet 1 (PRINIVIL,ZESTRIL) 2.5 MG (2.5 mg 7 tablet total) by mouth daily. 02/14/2018 metoprolol (TOPROL-XL) 50 Take 1 tablet 60 tablet 1 MG 24 hr tablet (50 mg total) 7 by mouth 2 (two) times daily. 02/14/2018 warfarin (COUMADIN) 2.5 Take 1 tablet 30 tablet 1 02/14/201 MG tablet (2.5 mg 7 total) by mouth every evening. Active Problems Problem Noted Date COPD (chronic obstructive pulmonary disease) 02/08/2017 Hypovolemia 02/08/2017 A-fib 02/08/2017 Coronary artery disease 02/07/2017 CAD (coronary artery disease) 02/07/2017 Social History Date Tobacco Use Types Packs/Day Years Used Former Smoker Cigarettes 50 Smokeless Tobacco: Former User Alcohol Use Drinks/Week oz/Week Comments Yes socially Sex Assigned at Date Recorded Not on file Industry Job Start Date Occupation Not on file Not on file Not on file Travel End Travel History Travel Start No recent travel history available. Last Filed Vital Signs Not on file Plan of Treatment Health Maintenance Due Date Last Done Comments INFLUENZA VACCINE 08/13/2018 Results Not on fileafter 10/17/2017 Insurance Payer Benefit Subscriber ID Type Phone Address Plan / Group MEDICARE MEDICARE xxxxxxxxxx Medicare PART A AETNA - MGD CARE AETNA HMO xxxxxxxxxx HMO/POS POS QPOS Advance Directives For more information, please contact: [facility] [address] [place] [address] Date Inactivated Comments Code Status Date Activated 02/13/2017 11:23 AM Full Code 02/13/2017 10:14 AM This code status was determined by: Patient 02/13/2017 10:14 AM Full Code 02/07/2017 3:00 PM This code status was determined by: Patient 02/07/2017 3:00 PM Full Code 02/07/2017 5:46 AM This code status was determined by: Patient
[2018-10-18 22:06] LABS: BASOPHILS % 0.1 % (0.0-1.0); EOSINOPHILS # (AUTO) 0.3 (0.0-0.4); EOSINOPHILS % 3.3 % (0.0-6.0); HEMATOCRIT 36.3 % (38.2-49.6); HEMOGLOBIN 10.9 g/dL (14.0-18.0); LYMPHOCYTES # (AUTO) 1.6 (1.0-3.2); LYMPHOCYTES % 17.9 % (18.0-39.1); MEAN CORPUSCULAR HEMOGLOBIN 24.5 pg (28-32); MEAN CORPUSCULAR VOLUME 81.8 fL (81-99); MONOCYTES # (AUTO) 0.8 (0.2-0.8); MONOCYTES % 8.9 % (4.4-11.3); NEUTROPHILS # (AUTO) 6.1 (2.1-6.9); NEUTROPHILS % 69.3 % (38.7-80.0); PLATELET COUNT 233 x10e3/uL (140-360); RED BLOOD COUNT 4.44 x10e6/uL (4.3-5.7); RED CELL DISTRIBUTION WIDTH 17.3 % (11.7-14.4)
[2018-10-18 22:20] LABS: INR 2.4; PROTHROMBIN TIME 27.9 seconds (11.9-14.5)
[2018-10-18 22:21] LABS: PARTIAL THROMBOPLASTIN TIME 63.5 seconds (23.8-35.5)
[2018-10-18 22:32] LABS: ALBUMIN 3.5 g/dL (3.5-5.0); ALBUMIN/GLOBULIN RATIO 0.9 (0.8-2.0); ANION GAP 12.3 mmol/L (8-16); CREATININE, SERUM 1.57 mg/dL (0.72-1.25); POTASSIUM 4.3 mmol/L (3.5-5.1)
--- NOTE | 2018-10-18 23:06 | Diagnostic Imaging Report ---
LOWER LEG RIGHT Comparison: 05/14/2017 Clinical history: Swelling, pain Findings: Stable postsurgical and posttraumatic changes of the proximal tibia with bilateral sideplate and screw fixation. There is a broken screw noted. No loosening or acute fracture seen. Healed proximal fibular fracture. Mild soft tissue swelling with multiple clips noted. Impression: Posttraumatic and postsurgical changes of the proximal tibia. No hardware loosening or angeline-hardware fracture. Signed by: Dr Indigo Daily MD on 10/18/2018 11:03 PM
--- NOTE | 2018-10-18 23:09 | Diagnostic Imaging Report ---
CHEST 2 VIEWS, Technique: CHEST 2 VIEWS Comparison: 07/05/2018 Clinical history: Swelling, pain DISCUSSION: Stable cardiothymic silhouette status post median sternotomy. No edema or consolidation. No effusion or pneumothorax. Partially imaged posterior T12-L2 fusion. IMPRESSION: No acute abnormality Signed by: Dr Indigo Daily MD on 10/18/2018 11:06 PM
== END 2018-10-19 00:11 | disposition home or self-care (01) ==
LOC: ER 21:04
DX: M79.661 Pain in right lower leg (principal); R60.0 Localized edema
CPT/HCPCS: 36415; 71046; 80053; 85025; 85610; 85730; 93971; 99283

== ENCOUNTER 2018-11-15 18:07 | Emergency (ER) | payer BC, OTHER ==
[~2018-11-15] VITALS: Ht 190.5 cm; Wt 109.8 kg
--- OUTSIDE RECORDS SUMMARY | 2018-11-15 18:11 | XMS REPORT | Clinical Summary ---
Author Author ALMITA PrivateCoreSt. Luke'S Meridian Medical CenterEndoSphere [facility] Organization 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 Role Phone Jarret Riojas PCP Ramone [...] INFLUENZA VACCINE 08/13/2018 Results Not on fileafter 11/14/2017 Insurance Payer Benefit Subscriber ID Type Phone Address Plan / Group MEDICARE MEDICARE xxxxxxxxxx Medicare PART A AETNA - MGD CARE AETNA HMO xxxxxxxxxx HMO/POS POS QPOS Advance Directives For more information, please contact: [facility] [address] [place] [address] Date Inactivated Comments Code Status Date Activated 02/13/2017 11:23 AM Full Code 02/13/2017 10:14 AM This code status was determined by: Patient 02/13/2017 10:14 AM Full Code 02/07/2017 3:00 PM This code status was determined by: Patient 02/07/2017 3:00 PM Full Code 02/07/2017 5:46 AM This code status was determined by: Patient
--- OUTSIDE RECORDS SUMMARY | 2018-11-15 18:11 | XMS REPORT | Clinical Summary ---
Author Author [facility] Organization [facility] Address Unknown Phone Unavailable Care Team Providers Care Carriage Dogger Name Role Phone Jarret Riojas MD PCP [...] hyperlipidemia; Essential hypertension 04/11/2018 Office Visit Neurology Alphonso Gunderson MD 03/15/2018 Anesthesia Radiology Event David [...] (Primary Dx) 03/14/2018 Orders Only Neurology after 11/14/2017 Family History Medical History Relation Name Comments [...] Last Done Comments COLON CANCER SCREENING 2005 SHINGLES VACCINES (1 of 2005 2) INFLUENZA VACCINE 06/13/2018 Implants Device Identifier Shelf Expiration Date Model / Serial / Lot Implanted Type Area Manufactur er 01/10/2019 [id number] / / [id number] Device Vasclr Clsr Vasoactive Cardiovasc N/A: N/A Intstnl Peptd 6fr Angio-Seal - ular [id number] Implants Implanted: 03/15/2018 (Quantity not on file) [id number] / / 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 Surgical N/A: N/A BSC Selc Braidd Torque Angel - Implants; PERIPHERAL [id number] Expanders; INTERVENTI Implanted: 03/15/2018 (Quantity not Extenders; ON on file) Surgical VASCULAR Wires JERZY Procedures Comments Procedure Name Priority Date/Time Associated Diagnosis IR 3D RECON SLICES Routine 03/15/2018 SNAPSHOTS RDMPS 2:24 PM CDT IR ANGIOGRAM CEREBRAL Routine 03/15/2018 Left carotid stenosis BILATERAL 2:24 PM CDT Right carotid artery occlusion ARTERIAL LINE Routine 03/15/2018 12:21 PM CDT Procedure Note - Alphonso Gunderson MD - 03/15/2018 12:21 PM CDT Arterial line Performed by: ALPHONSO GUNDERSON Authorized by: ALPHONSO GUNDERSON Patient Location: OR Start Time: 03/15/2018 12:21 PM End Time: 03/15/2018 12:21 PM Staff: Munao anikat: ALPHONSO GUNDERSON Performed by: Anesthesijayleen green Pre-proced ure: [...] Craniocerebral trauma, subsequent encounter Tobacco abuse after 11/14/2017 Results * IR 3D Recon Slices Snapshots RDMPS (03/15/2018 2:24 PM CDT) Narrative Performed At Non-Reportable/No report needed. [facility] Performing Organization Address City/State/Zipcode Phone Number [facility] [address] [place] [address] * IR Angiogram Cerebral (03/15/2018 2:24 PM [...] foraneurysms or arteriovenous malformations. 6. No complications. [facility]-[id number] Procedure Note Hm Interface, Radiology Results Incoming [...] aneurysms or arteriovenous malformations. 6. No complications. [facility]-[id number] Performing Organization Address City/State/Zipcode Phone Number [facility] [address] [place] [address] * Platelet function P2Y12 (03/15/2018 11:29 AM CDT) Platelet function P2Y12 SEE COMMENT [facility] DEPARTMENT OF Comment: PATHOLOGY AND Test results are reported in [facility] P2Y12 Reaction Units (PRU). Platelet Function [...] Blood Performing Organization Address City/State/Zipcode Phone Number [facility] [place] [place] [address] PATHOLOGY AND GENOMIC MEDICINE * Syphilis treponemal IgG (03/14/2018 2:14 PM CDT) Syphilis treponemal IgG Non-reactiveComment: Non-reactive [facility] DEPARTMENT OF Non-reactive: No serological PATHOLOGY AND evidence of Syphilis infection GENOMIC MEDICINE Specimen Serum Performing Organization Address City/[facility] Phone Number [facility] DEPARTMENT [place] [phone] PATHOLOGY AND GENOMIC MEDICINE * Homocystine, plasma (03/14/2018 2:14 PM CDT) Homocysteine 17.6 (H) 0.0 - 15.0 umol/L [facility] DEPARTMENT OF Comment: PATHOLOGY AND The risk for coronary vascular GENOMIC MEDICINE disease increases progressively with homocysteine concentration.A 3.4 times greater risk is associated with a homocysteine concentration of greater than 15.8 umol/L as compared to a concentration below 14.1 umol/L. Specimen Plasma specimen Performing Organization Address City/[facility]/Zipcode Phone Number [address] [address] PATHOLOGY AND GENOMIC MEDICINE * Estimated GFR (03/14/2018 2:14 PM CDT) GFR Non Af Amer 68 mL/min/1.73 m2 [facility] DEPARTMENT OF PATHOLOGY AND [employer] MEDICINE GFR Af Amer 82 mL/min/1.73 m2 [facility] DEPARTMENT OF Comment: PATHOLOGY AND [...] Americans. Specimen Plasma specimen Performing Organization Address City/[facility] [place] [address] PATHOLOGY AND [employer] [facility] * Partial thromboplastin time, activated (03/14/2018 2:14 PM CDT) PTT 34.3 23.0 - 36.0 sec [facility] DEPARTMENT OF Comment: PATHOLOGY AND PTT therapeutic range for [facility] unfractionated heparin is 61.0-112.0 seconds which corresponds to Anti-Xa 0.3-0.7 U/ml. Specimen Blood Performing Organization Address City/[facility] [place] [address] PATHOLOGY AND [employer] [facility] * Sedimentation rate (03/14/2018 2:14 PM CDT) Sedimentation rate 23 (H) 0 - 10 mm/hr [facility] DEPARTMENT OF PATHOLOGY AND [employer] MEDICINE Specimen Blood Performing Organization Address City/[facility] [place] [address] PATHOLOGY AND [employer] [facility] * Prothrombin time with INR (03/14/2018 2:14 PM CDT) Prothrombin time 14.5 12.0 - 15.0 sec [facility] DEPARTMENT OF PATHOLOGY AND [employer] MEDICINE INR 1.1 [facility] DEPARTMENT OF Comment: PATHOLOGY AND The International Normalized [facility] Ratio (INR) is a therapeutic monitoring tool for patients who are stable on oral anticoagulant therapy. An INR of 2.0-3.0 is suggested for deep vein thrombosis/pulmonary embolism. Specimen Blood Performing Organization Address [facility]/Zipcode Phone Number [facility] DEPARTMENT OF [address] [place] [id number] PATHOLOGY AND GENOMIC MEDICINE * CBC with platelet and differential (03/14/2018 2:14 PM CDT) WBC 8.79 4.50 - 11.00 k/uL [facility] DEPARTMENT OF PATHOLOGY AND GENOMIC MEDICINE RBC 4.60 4.40 - 6.00 m/uL [facility] DEPARTMENT OF PATHOLOGY AND GENOMIC MEDICINE HGB 12.2 (L) 14.0 - 18.0 g/dL [facility] DEPARTMENT OF PATHOLOGY AND GENOMIC MEDICINE HCT 39.3 (L) 41.0 - 51.0 % [facility] DEPARTMENT OF PATHOLOGY AND GENOMIC MEDICINE MCV 85.4 82.0 - 100.0 fL [facility] DEPARTMENT OF PATHOLOGY AND GENOMIC MEDICINE MCH 26.5 (L) 27.0 - 34.0 pg [facility] DEPARTMENT OF PATHOLOGY AND GENOMIC MEDICINE MCHC 31.0 31.0 - 37.0 g/dL [facility] DEPARTMENT OF PATHOLOGY AND GENOMIC MEDICINE RDW - SD 50.7 37.0 - 55.0 fL [facility] DEPARTMENT OF PATHOLOGY AND GENOMIC MEDICINE MPV 10.5 8.8 - 13.2 fL [facility] DEPARTMENT OF PATHOLOGY AND GENOMIC MEDICINE Platelet count 242 150 - 400 k/uL [facility] DEPARTMENT OF PATHOLOGY AND GENOMIC MEDICINE Nucleated RBC 0.00 /100 WBC [facility] DEPARTMENT OF PATHOLOGY AND GENOMIC MEDICINE Neutrophils 67.8 39.0 - 69.0 % [facility] DEPARTMENT OF PATHOLOGY AND GENOMIC MEDICINE Lymphocytes 17.3 (L) 25.0 - 45.0 % [facility] DEPARTMENT OF PATHOLOGY AND GENOMIC MEDICINE Monocytes 9.8 0.0 - 10.0 % [facility] DEPARTMENT OF PATHOLOGY AND GENOMIC MEDICINE Eosinophils 4.0 0.0 - 5.0 % [facility] DEPARTMENT OF PATHOLOGY AND GENOMIC MEDICINE Basophils 0.3 0.0 - 1.0 % [facility] DEPARTMENT OF PATHOLOGY AND GENOMIC MEDICINE Immature granulocytes 0.8Comment: "Immature 0.0 - 1.0 % [facility] DEPARTMENT OF granulocytes" (promyelocytes, PATHOLOGY AND myelocytes, metamyelocytes) GENOMIC MEDICINE Specimen Blood Performing Organization Address City/[facility]/Zipcode Phone Number [facility] DEPARTMENT OF [address] [place] [address] PATHOLOGY AND GENOMIC MEDICINE * T3 (03/14/2018 2:14 PM CDT) T3 137 80 - 200 ng/dL [facility] DEPARTMENT OF PATHOLOGY AND GENOMIC MEDICINE Specimen Plasma specimen Performing Organization Address City/[facility] Phone Number [facility] [place] [address] PATHOLOGY AND [facility] * Thyroid stimulating hormone (03/14/2018 2:14 PM CDT) TSH 1.49 0.27 - 4.20 uIU/mL [facility] DEPARTMENT OF PATHOLOGY AND GENOMIC MEDICINE Specimen Plasma specimen Performing Organization Address City/[facility] [place] [address] PATHOLOGY AND [facility] * T4, free (03/14/2018 2:14 PM CDT) T4, free 0.9 0.9 - 1.7 ng/dL [facility] DEPARTMENT OF PATHOLOGY AND GENOMIC MEDICINE Specimen Plasma specimen Performing Organization Address [facility] [place] [address] PATHOLOGY AND [facility] * Hemoglobin A1c (03/14/2018 2:14 PM CDT) Hemoglobin A1C 6.4 (H) 4.0 - 5.6 % [facility] DEPARTMENT OF Comment: PATHOLOGY AND HbA1c cutoffs for diagnosing [facility] diabetes: 4.0% - 5.6%=normal 5.7% - 6.4%=increased risk for diabetes (prediabetes) >=6.5%=diabetes Goals for glycemic control (ADA 2016) < 7.0%Target for non adults with diabetes. More or less stringent targets may be appropriate for individual patients. <7.5% Target for Children and adolescents with type 1 diabetes. Specimen Blood Performing Organization Address [facility] Facility[facility]j Phone Number [facility] [place] [address] PATHOLOGY AND [facility] * Folate RBC (group test) (03/14/2018 2:14 PM CDT) RBC folate 1,101 499 - 1,504 ng/mL [facility] DEPARTMENT OF PATHOLOGY AND GENOMIC MEDICINE Specimen Blood Performing Organization Address [facility] [place] [address] PATHOLOGY AND [facility] * Vitamin B12 level (03/14/2018 2:14 PM CDT) Vitamin B12 445 211 - 946 pg/mL [facility] DEPARTMENT OF Comment: PATHOLOGY AND Significant overlap exists GENOMIC MEDICINE between normal and deficiency states. However, most patients with deficiencies will have Serum B12 <200 pg/mL. Specimen Serum Performing Organization Address [facility]/Zipcode Phone Number [facility] DEPARTMENT OF [address] [place] [address] PATHOLOGY AND GENOMIC MEDICINE * Lipid panel (03/14/2018 2:14 PM CDT) Cholesterol 188 <200 mg/dL [facility] DEPARTMENT OF PATHOLOGY AND GENOMIC MEDICINE Triglycerides 328 (H) <150 mg/dL [facility] DEPARTMENT OF PATHOLOGY AND GENOMIC MEDICINE HDL cholesterol 23 (L) >40 mg/dL [facility] DEPARTMENT OF PATHOLOGY AND GENOMIC MEDICINE LDL cholesterol 129 (H)Comment: Result <100 mg/dL [facility] DEPARTMENT obtained by direct LDL PATHOLOGY AND measurement GENOMIC MEDICINE Lipid panel SeeBelow [facility] DEPARTMENT OF interpretation Comment: PATHOLOGY [...] specimen Performing Organization Address City/State/Zipcode Phone Number [facility] DEPARTMENT OF [address] [place] [address] PATHOLOGY AND GENOMIC MEDICINE * Comprehensive metabolic panel (03/14/2018 2:14 PM CDT) Sodium 140 135 - 148 mEq/L [facility] DEPARTMENT OF PATHOLOGY AND GENOMIC MEDICINE Potassium 4.0 3.5 - 5.0 mEq/L [facility] DEPARTMENT OF PATHOLOGY AND GENOMIC MEDICINE Chloride 97 (L) 98 - 112 mEq/L [facility] DEPARTMENT OF PATHOLOGY AND GENOMIC MEDICINE CO2 29 24 - 31 mEq/L [facility] DEPARTMENT OF PATHOLOGY AND GENOMIC MEDICINE Anion gap 14 7 - 15 mEq/L [facility] DEPARTMENT OF Comment: PATHOLOGY AND Starting from February GENOMIC MEDICINE , anion gap calculation no longer incorporates potassium. Please note the change. BUN 21 8 - 23 mg/dL [facility] DEPARTMENT OF PATHOLOGY AND GENOMIC MEDICINE Creatinine 1.1 0.7 - 1.2 mg/dL [facility] DEPARTMENT OF PATHOLOGY AND GENOMIC MEDICINE Glucose 120 (H) 65 - 99 mg/dL [facility] DEPARTMENT OF PATHOLOGY AND GENOMIC MEDICINE Calcium 8.8 8.8 - 10.2 mg/dL [facility] DEPARTMENT OF PATHOLOGY AND GENOMIC MEDICINE Protein 8.2 6.3 - 8.3 g/dL [facility] DEPARTMENT OF Comment: PATHOLOGY AND GENOMIC MEDICINE 4.6-7.0 g/dL 1 week 4.4-7.6 g/dL 7 months-1year 5.1-7.3 g/dL 1-2 years5.6-7 .5 g/dL >3 years6.0-8 .0 g/dL 18-150 6.3-8.3 g/dL Albumin 3.7 3.5 - 5.0 g/dL [facility] DEPARTMENT OF PATHOLOGY AND GENOMIC MEDICINE A/G ratio 0.8 0.7 - 3.8 [facility] DEPARTMENT OF PATHOLOGY AND GENOMIC MEDICINE Alkaline phosphatase 125 40 - 129 U/L [facility] DEPARTMENT OF PATHOLOGY AND GENOMIC MEDICINE AST 26 10 - 50 U/L [facility] DEPARTMENT OF PATHOLOGY AND GENOMIC MEDICINE ALT 15 5 - 50 U/L [facility] DEPARTMENT OF PATHOLOGY AND GENOMIC MEDICINE Total bilirubin 0.4 0.0 - 1.2 mg/dL [facility] DEPARTMENT OF PATHOLOGY AND GENOMIC MEDICINE Specimen Plasma specimen Performing Organization Address City/State/Zipcode Phone Number [facility] DEPARTMENT OF [address] [place] [address] PATHOLOGY AND GENOMIC MEDICINE after 11/14/2017 Insurance Payer Benefit Subscriber ID Type Phone Address Plan / Group AETNA AETNA PPO xxxxxxxxxx PPO OPEN CHOICE MEDICARE MEDICARE xxxxxxxxxx Medicare [place], [place] PART A Advance Directives Patient has advance care planning documents on file. For more information, sahara gutierrez contact: Kelton Crockett [address] [facility] [place] [address]
[2018-11-15] MEDS ORDERED: HYDROCODONE/APAP 7.5MG-325MG 1 EA TAB PO PRN (18:30)
--- NOTE | 2018-11-15 19:19 | Diagnostic Imaging Report ---
KNEE RIGHT THREE VIEWS - 4 views HISTORY: Pain COMPARISON: 10/18/2018 FINDINGS: Unchanged proximal tibia bilateral sideplate and screw fixation. Unchanged broken screw noted. No loosening or acute fracture seen. Healed proximal fibular fracture deformity. Mild soft tissue swelling with multiple clips noted. IMPRESSION: No significant interval change from prior exam. Signed by: Dr. Luis F Tellez MD on 11/15/2018 7:15 PM
[2018-11-15 20:50] VITALS: BP 119/72
== END 2018-11-15 20:54 | disposition home or self-care (01) ==
LOC: ER 18:07
DX: M25.561 Pain in right knee (principal); S83.411A Sprain of medial collateral ligament of right knee, initial encounter; J44.9 Chronic obstructive pulmonary disease, unspecified; I48.91 Unspecified atrial fibrillation; Z95.1 Presence of aortocoronary bypass graft
CPT/HCPCS: 99283

== ENCOUNTER 2018-12-06 22:14 | Emergency (ER) | payer MEDICARE, BC ==
[~2018-12-06] VITALS: Ht 190.5 cm; Wt 109.8 kg
--- OUTSIDE RECORDS SUMMARY | 2018-12-06 22:19 | XMS REPORT | Clinical Summary ---
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 [facility] Performing Organization Address City/State/Zipcode Phone Number [facility] [address] [place] [address] * IR Angiogram Cerebral (03/15/2018 2:24 PM [...] foraneurysms or arteriovenous malformations. 6. No complications. [facility]-[id number] Procedure Note Hm Interface, Radiology Results Incoming [...] aneurysms or arteriovenous malformations. 6. No complications. [facility]-[id number] Performing Organization Address City/State/Zipcode Phone Number [facility] [address] [place] [address] * Platelet function P2Y12 (03/15/2018 11:29 AM CDT) Platelet function P2Y12 SEE [address] [facility] DEPARTMENT OF Comment: PATHOLOGY AND Test results are reported in [facility] P2Y12 Reaction Units (PRU). Platelet [...] Blood Performing Organization Address City/State/Zipcode Phone Number [facility] [place] [address] PATHOLOGY AND GENOMIC MEDICINE * Syphilis treponemal IgG (03/14/2018 2:14 PM CDT) Syphilis treponemal IgG Non-reactiveComment: Non-reactive [facility] DEPARTMENT OF Non-reactive: No serological PATHOLOGY AND evidence of Syphilis infection GENOMIC MEDICINE Specimen Serum Performing Organization Address City/[facility] Phone Number [facility] DEPARTMENT [place] [phone] PATHOLOGY AND GENOMIC MEDICINE * Homocystine, plasma (03/14/2018 2:14 PM CDT) Homocysteine 17.6 (H) 0.0 - 15.0 umol/L [facility] DEPARTMENT OF Comment: PATHOLOGY AND The risk for coronary vascular GENOMIC MEDICINE disease increases progressively with homocysteine concentration.A 3.4 times greater risk is associated with a homocysteine concentration of greater than 15.8 umol/L as compared to a concentration below 14.1 umol/L. Specimen Plasma specimen Performing Organization Address City/[facility]/Zipcode Phone Number [address] [address] PATHOLOGY AND GENOMIC MEDICINE * Estimated GFR (03/14/2018 2:14 PM CDT) GFR Non Af Amer 68 mL/min/1.[address] [facility] DEPARTMENT OF PATHOLOGY AND [place] MEDICINE GFR Af Amer 82 mL/min/1.[address] [facility] DEPARTMENT OF Comment: PATHOLOGY AND Chronic kidney [...] Americans. Specimen Plasma specimen Performing Organization Address City/[facility] [place] [address] PATHOLOGY AND [place] [facility] * Partial thromboplastin time, activated (03/14/2018 2:14 PM CDT) PTT 34.3 23.0 - 36.[address] [facility] DEPARTMENT OF Comment: PATHOLOGY AND PTT therapeutic range for [facility] unfractionated heparin is 61.0-112.0 seconds which corresponds to Anti-Xa 0.3-0.7 U/ml. Specimen Blood Performing Organization Address City/[facility] [place] [address] PATHOLOGY AND [place] [facility] * Sedimentation rate (03/14/2018 2:14 PM CDT) Sedimentation rate 23 (H) 0 - 10 mm/hr [facility] DEPARTMENT OF PATHOLOGY AND [place] MEDICINE Specimen Blood Performing Organization Address City/[facility] [place] [address] PATHOLOGY AND [place] [facility] * Prothrombin time with INR (03/14/2018 2:14 PM CDT) Prothrombin time 14.5 12.0 - 15.[address] [facility] DEPARTMENT OF PATHOLOGY AND [place] MEDICINE INR 1.1 [facility] DEPARTMENT OF Comment: PATHOLOGY AND The International Normalized [facility] Ratio (INR) is a therapeutic monitoring tool for patients who are stable on oral anticoagulant therapy. An INR of 2.0-3.0 is suggested for deep vein thrombosis/pulmonary embolism. Specimen Blood Performing Organization Address [facility]/Zipcode Phone Number [facility] DEPARTMENT OF [address] [place] [id number] PATHOLOGY AND GENOMIC MEDICINE * CBC with platelet and differential (03/14/2018 2:14 PM CDT) WBC 8.79 4.50 - 11.00 k/uL [facility] DEPARTMENT OF PATHOLOGY AND GENOMIC MEDICINE RBC 4.60 4.40 - 6.00 m/uL [facility] DEPARTMENT OF PATHOLOGY AND GENOMIC MEDICINE HGB 12.2 (L) 14.0 - 18.0 g/dL [facility] DEPARTMENT OF PATHOLOGY AND GENOMIC MEDICINE HCT 39.3 (L) 41.0 - 51.0 % [facility] DEPARTMENT OF PATHOLOGY AND GENOMIC MEDICINE MCV 85.4 82.0 - 100.[address] [facility] DEPARTMENT OF PATHOLOGY AND GENOMIC MEDICINE MCH 26.5 (L) 27.0 - 34.[address] [facility] DEPARTMENT OF PATHOLOGY AND GENOMIC MEDICINE MCHC 31.0 31.0 - 37.0 g/dL [facility] DEPARTMENT OF PATHOLOGY AND GENOMIC MEDICINE RDW - SD 50.7 37.0 - 55.[address] [facility] DEPARTMENT OF PATHOLOGY AND GENOMIC MEDICINE MPV 10.5 8.8 - 13.[address] [facility] DEPARTMENT OF PATHOLOGY AND GENOMIC MEDICINE Platelet count 242 150 - 400 k/uL [facility] DEPARTMENT OF PATHOLOGY AND GENOMIC MEDICINE Nucleated RBC 0.00 /[address] [facility] DEPARTMENT OF PATHOLOGY AND GENOMIC MEDICINE Neutrophils 67.8 39.0 - 69.0 % [facility] DEPARTMENT OF PATHOLOGY AND GENOMIC MEDICINE Lymphocytes 17.3 (L) 25.0 - 45.0 % [facility] DEPARTMENT OF PATHOLOGY AND GENOMIC MEDICINE Monocytes 9.8 0.0 - 10.0 % [facility] DEPARTMENT OF PATHOLOGY AND GENOMIC MEDICINE Eosinophils 4.0 0.0 - 5.0 % [facility] DEPARTMENT OF PATHOLOGY AND GENOMIC MEDICINE Basophils 0.3 0.0 - 1.0 % [facility] DEPARTMENT OF PATHOLOGY AND GENOMIC MEDICINE Immature granulocytes 0.8Comment: "Immature 0.0 - 1.0 % [facility] DEPARTMENT OF granulocytes" (promyelocytes, PATHOLOGY AND myelocytes, metamyelocytes) GENOMIC MEDICINE Specimen Blood Performing Organization Address City/[facility]/Zipcode Phone Number [facility] DEPARTMENT OF [address] [place] [address] PATHOLOGY AND GENOMIC MEDICINE * T3 (03/14/2018 2:14 PM CDT) T3 137 80 - 200 ng/dL [facility] DEPARTMENT OF PATHOLOGY AND GENOMIC MEDICINE Specimen Plasma specimen Performing Organization Address City/[facility] Phone Number [facility] [place] [address] PATHOLOGY AND [facility] * Thyroid stimulating hormone (03/14/2018 2:14 PM CDT) TSH 1.49 0.27 - 4.20 uIU/mL [facility] DEPARTMENT OF PATHOLOGY AND GENOMIC MEDICINE Specimen Plasma specimen Performing Organization Address City/[facility] [place] [address] PATHOLOGY AND [facility] * T4, free (03/14/2018 2:14 PM CDT) T4, free 0.9 0.9 - 1.7 ng/dL [facility] DEPARTMENT OF PATHOLOGY AND GENOMIC MEDICINE Specimen Plasma specimen Performing Organization Address [facility] [place] [address] PATHOLOGY AND [facility] * Hemoglobin A1c (03/14/2018 2:14 PM CDT) Hemoglobin A1C 6.4 (H) 4.0 - 5.6 % [facility] DEPARTMENT OF Comment: PATHOLOGY AND HbA1c cutoffs for diagnosing [facility] diabetes: 4.0% - 5.6%=normal 5.7% - 6.4%=increased risk for diabetes (prediabetes) >=6.5%=diabetes Goals for glycemic control (ADA 2016) < 7.0%Target for non adults with diabetes. More or less stringent targets may be appropriate for individual patients. <7.5% Target for Children and adolescents with type 1 diabetes. Specimen Blood Performing Organization Address [facility] Hospitalcowi Phone Number [facility] [place] [address] PATHOLOGY AND [facility] * Folate RBC (group test) (03/14/2018 2:14 PM CDT) RBC folate 1,101 499 - 1,504 ng/mL [facility] DEPARTMENT OF PATHOLOGY AND GENOMIC MEDICINE Specimen Blood Performing Organization Address [facility] [place] [address] PATHOLOGY AND [facility] * Vitamin B12 level (03/14/2018 2:14 PM CDT) Vitamin B12 445 211 - 946 pg/mL [facility] DEPARTMENT OF Comment: PATHOLOGY AND Significant overlap exists GENOMIC MEDICINE between normal and deficiency states. However, most patients with deficiencies will have Serum B12 <200 pg/mL. Specimen Serum Performing Organization Address [facility]/Zipcode Phone Number [facility] DEPARTMENT OF [address] [place] [address] PATHOLOGY AND GENOMIC MEDICINE * Lipid panel (03/14/2018 2:14 PM CDT) Cholesterol 188 <200 mg/dL [facility] DEPARTMENT OF PATHOLOGY AND GENOMIC MEDICINE Triglycerides 328 (H) <150 mg/dL [facility] DEPARTMENT OF PATHOLOGY AND GENOMIC MEDICINE HDL cholesterol 23 (L) >40 mg/dL [facility] DEPARTMENT OF PATHOLOGY AND GENOMIC MEDICINE LDL cholesterol 129 (H)Comment: Result <100 mg/dL [facility] DEPARTMENT obtained by direct LDL PATHOLOGY AND measurement GENOMIC MEDICINE Lipid panel SeeBelow [facility] DEPARTMENT OF interpretation Comment: PATHOLOGY AND Total [...] specimen Performing Organization Address City/State/Zipcode Phone Number [facility] DEPARTMENT OF [address] [place] [address] PATHOLOGY AND GENOMIC MEDICINE * Comprehensive metabolic panel (03/14/2018 2:14 PM CDT) Sodium 140 135 - 148 mEq/L [facility] DEPARTMENT OF PATHOLOGY AND GENOMIC MEDICINE Potassium 4.0 3.5 - 5.0 mEq/L [facility] DEPARTMENT OF PATHOLOGY AND GENOMIC MEDICINE Chloride 97 (L) 98 - 112 mEq/L [facility] DEPARTMENT OF PATHOLOGY AND GENOMIC MEDICINE CO2 29 24 - 31 mEq/L [facility] DEPARTMENT OF PATHOLOGY AND GENOMIC MEDICINE Anion gap 14 7 - 15 mEq/L [facility] DEPARTMENT OF Comment: PATHOLOGY AND Starting from February GENOMIC MEDICINE , anion gap calculation no longer incorporates potassium. Please note the change. BUN 21 8 - 23 mg/dL [facility] DEPARTMENT OF PATHOLOGY AND GENOMIC MEDICINE Creatinine 1.1 0.7 - 1.2 mg/dL [facility] DEPARTMENT OF PATHOLOGY AND GENOMIC MEDICINE Glucose 120 (H) 65 - 99 mg/dL [facility] DEPARTMENT OF PATHOLOGY AND GENOMIC MEDICINE Calcium 8.8 8.8 - 10.2 mg/dL [facility] DEPARTMENT OF PATHOLOGY AND GENOMIC MEDICINE Protein 8.2 6.3 - 8.3 g/dL [facility] DEPARTMENT OF Comment: PATHOLOGY AND GENOMIC MEDICINE 4.6-7.0 g/dL 1 week 4.4-7.6 g/dL 7 months-1year 5.1-7.3 g/dL 1-2 years5.6-7 .5 g/dL >3 years6.0-8 .0 g/dL 18-150 6.3-8.3 g/dL Albumin 3.7 3.5 - 5.0 g/dL [facility] DEPARTMENT OF PATHOLOGY AND GENOMIC MEDICINE A/G ratio 0.8 0.7 - 3.8 [facility] DEPARTMENT OF PATHOLOGY AND GENOMIC MEDICINE Alkaline phosphatase 125 40 - 129 U/L [facility] DEPARTMENT OF PATHOLOGY AND GENOMIC MEDICINE AST 26 10 - 50 U/L [facility] DEPARTMENT OF PATHOLOGY AND GENOMIC MEDICINE ALT 15 5 - 50 U/L [facility] DEPARTMENT OF PATHOLOGY AND GENOMIC MEDICINE Total bilirubin 0.4 0.0 - 1.2 mg/dL [facility] DEPARTMENT OF PATHOLOGY AND GENOMIC MEDICINE Specimen Plasma specimen Performing Organization Address City/State/Zipcode Phone Number [facility] DEPARTMENT OF [address] [place] [address] PATHOLOGY AND GENOMIC MEDICINE after 12/05/2017 Insurance Payer Benefit Subscriber ID Type Phone Address Plan / Group AETNA AETNA PPO xxxxxxxxxx PPO OPEN CHOICE MEDICARE MEDICARE xxxxxxxxxx Medicare [place], [place] PART A Advance Directives Patient has advance care planning documents on file. For more information, sahara gutierrez contact: Kelton Crockett [address] [place] [address]
--- OUTSIDE RECORDS SUMMARY | 2018-12-06 22:19 | XMS REPORT | Clinical Summary ---
Author Author ALMITA Horsehead HoldingSt. Luke'S Meridian Medical CenterQuadrille Ingénierie [facility] Organization [facility]Tin[facility]Pe[facility] Address Unknown Phone Unavailable Care Team Providers Care Senior Finance Manager Name Role Phone Jarret Riojas PCP Ramone [...] INFLUENZA VACCINE 08/13/2018 Results Not on fileafter 12/05/2017 Insurance Payer Benefit Subscriber ID Type Phone Address Plan / Group MEDICARE MEDICARE xxxxxxxxxx Medicare PART A AETNA - MGD CARE AETNA HMO xxxxxxxxxx HMO/POS POS QPOS Advance Directives For more information, please contact: [facility] [address] [place] [address] Date Inactivated Comments Code Status Date Activated 02/13/2017 11:23 AM Full Code 02/13/2017 10:14 AM This code status was determined by: Patient 02/13/2017 10:14 AM Full Code 02/07/2017 3:00 PM This code status was determined by: Patient 02/07/2017 3:00 PM Full Code 02/07/2017 5:46 AM This code status was determined by: Patient
--- NOTE | 2018-12-06 23:21 | NUR ---
PATIENT MAIN COMPLAINT WAS THAT HE HASNT SLEPT IN 2 DAYS, THEN STATES STATING SEVERAL OTHER COMPLAINTS. PATIENT'S DOES ALL THE TALKING AND DOES NOT ALLOW PATIENT TO TALK. DR. ALLEN DOES THOURH ASSESSMENT, WHICH REVEALS CLEAR BREATH SOUNDS, NO PEDAL EDEMA, NO REDDNESS OR SWELLING TO BLE, NO SOB ON EXCERTION, STABLE VITAL SIGNS, OXYGEN SATURATIONS 99-100 ON ROOM AIR. PATIENT IS CLINICALLY STABLE IN NO ACUTE DISTRESS, NO INDICATION OF CELLULITIS OF FLUID OVERLOAD. IN TRIAGE DEMANDING DR, DO BLOOD WORK AND XRAY, DR ALLEN AGAIN INFORMS AT THIS TIME NO IDICATION FOR ANY TESTS. ARGUING WITH DR ALLEN AND STATES SHE WANTS THE DRS NAME. DR. ALLEN THEN SPEAKS TO THE PATIENT AND ASKS PATIENT IF HE HAS ANY OTHER CONCERNS, AND IF HE UNDERSTANDS THE DISPOSITION. PATIENT STATES HE DOES UNDERSTAND AN NO FURTHER QUESTIONS AT THIS TIME. PATIENT APPEARS TO UNDERSTAND DISPOSITION STATUS, THE IS THE ONE WHO IS DEMANDING AND ADDING COMPLAINTS THAT THE ACTUAL PATIENT IS NOT COMPLAINING ABOUT HIMSELF. DR ALLEN TELLS THE THAT SHE HAS TALKED TO THE PATIENT, AND DR DAVENPORT AND BOTH ARE IN AGREANCE AND UNDURSTAND THE DISPOSITION STATUS. THE APPEARS UPSET THAT SHE DID NOT GET THE TEST SHE WANTED DONE ON THE PATIENT, DESPIT DR. ALLEN AND DR. DAVENPORT AGREEING ON THE CURRENT DISPO STATUS.
== END 2018-12-06 23:16 | disposition left against medical advice (07) ==
LOC: ER 22:14
DX: E11.40 Type 2 diabetes mellitus with diabetic neuropathy, unspecified (principal)

== ENCOUNTER 2019-01-07 10:56 | Outpatient (RCR) | payer BC | END 2019-01-10 | LOC: PT 10:56 | PROVIDERS: ATTEND Psychiatry & Neurology Clinical Neurophysiology | DX: R26.89 Other abnormalities of gait and mobility (principal); E11.42 Type 2 diabetes mellitus with diabetic polyneuropathy ==

== ENCOUNTER 2019-01-25 14:00 | Outpatient (RCR) | payer BC | END 2019-02-10 | LOC: PT 14:00 | PROVIDERS: ATTEND Psychiatry & Neurology Clinical Neurophysiology | DX: E11.42 Type 2 diabetes mellitus with diabetic polyneuropathy (principal); R26.89 Other abnormalities of gait and mobility; M62.81 Muscle weakness (generalized) | CPT/HCPCS: 97139 ==

== ENCOUNTER 2019-05-15 23:31 | Emergency (ER) | payer BC, MEDICARE ==
[~2019-05-15] VITALS: Ht 190.5 cm; Wt 109.8 kg
--- OUTSIDE RECORDS SUMMARY | 2019-05-15 23:35 | XMS REPORT | Clinical Summary ---
Author Author ALMITA [employer] Organization [facility] [employer] [facility] Address Unknown Phone Unavailable Care Team Providers Care Residential Lawn Specialist Name Role Phone Beulah Jarret Quinonez PCP Ramone Kirk 31 Unavailable Allergies Comments [...] 1 mg by 0 tablet mouth nightly. Active Problems Problem Noted Date COPD (chronic [...] INFLUENZA VACCINE 08/13/2018 Results Not on fileafter 05/14/2018 Insurance Payer Benefit Subscriber ID Type Phone Address Plan / Group MEDICARE MEDICARE xxxxxxxxxx Medicare PART A AETNA - MGD CARE AETNA HMO xxxxxxxxxx HMO/POS POS QPOS Advance Directives For more information, please contact: [facility] [address] [place] [address] Date Inactivated Comments Code Status Date Activated 02/13/2017 11:23 AM Full Code 02/13/2017 10:14 AM This code status was determined by: Patient 02/13/2017 10:14 AM Full Code 02/07/2017 3:00 PM This code status was determined by: Patient 02/07/2017 3:00 PM Full Code 02/07/2017 5:46 AM This code status was determined by: Patient
--- OUTSIDE RECORDS SUMMARY | 2019-05-15 23:35 | XMS REPORT | Clinical Summary ---
Author Author [facility] [employer] Organization [employer] Address Unknown Phone Unavailable Care Team Providers Care Associate Marketing Manager Name Role Phone Jarret Riojas MD PCP [...] A DAY AND 2 CAPSULES AT BEDTIME Active aspirin (ECOTRIN) 81 MG Take 81 mg by 0 enteric coated tablet mouth daily. Active atorvastatin (LIPITOR) 80 TAKE 1 TABLET 30 tablet 10 201 MG tabletIndications: BY MOUTH 9 Mixed hyperlipidemia, DAILY Carotid stenosis, asymptomatic, left, Carotid occlusion, right, History of syncope, Traumatic brain injury with loss of consciousness, subsequent encounter, Tobacco abuse 02/08/2019 Discontinued atorvastatin (LIPITOR) 80 Take 1 tablet 30 tablet 11 MG tabletIndications: (80 mg total) 8 Mixed hyperlipidemia, by mouth Carotid stenosis, daily. asymptomatic, left, Carotid occlusion, right, History of syncope, Traumatic brain injury with loss of consciousness, subsequent encounter, Tobacco abuse Active Problems Problem Noted Date Left carotid stenosis 03/15/2018 COPD (chronic obstructive pulmonary disease) Encounters Care Team Description Date Type Specialty David Pandya MD Mixed hyperlipidemia; Carotid stenosis, asymptomatic, left; Carotid occlusion, right; History of syncope; Traumatic brain injury with loss of consciousness, subsequent encounter; Tobacco abuse 02/08/2019 Refill Neurology Asked, No Pcp 08/31/2018 Telephone Neurology David Pandya MD 08/06/2018 Refill Neurology David Pandya MD Neuropathy (Primary Dx) 06/28/2018 Orders Only Neurology David Pandya MD Neuropathy (Primary Dx) 06/28/2018 Transcribe Neurology Orders Cecilia Martínez 06/27/2018 Telephone Neurology after 05/14/2018 Family History Medical History Relation Name Comments [...] Health Maintenance Due Date Last Done Comments COLONOSCOPY SCREENING 2005 SHINGLES VACCINES (#1) 2005 INFLUENZA VACCINE 06/13/2019 Implants Device Identifier Shelf Expiration Date Model / Serial / Lot Implanted Type Area Manufactur er 01/10/2019 [id number] / / [id number] Device Vasclr Clsr Vasoactive Cardiovasc N/A: N/A Intstnl Peptd 6fr Angio-Seal - ular [id number] Implants Implanted: 03/15/2018 (Quantity not on file) [id number] / / Catheter Angio Provider Relations Coordinator Ii 5fr 100cm Surgical N/A: N/A BSC [employer] Braidd Torque Angel - Implants; PERIPHERAL [id number] Expanders; INTERVENTI Implanted: 03/15/2018 (Quantity not Extenders; ON on file) Surgical VASCULAR Wires JERZY Results Not on fileafter 05/14/2018 Insurance Type Payer Benefit Subscriber ID Effective Phone Address Plan / Dates Group PPO AETNA AETNA PPO xxxxxxxxxx 2012-P OPEN resent CHOICE Medicare MEDICARE MEDICARE xxxxxxxxxx 2012-P [place], PART A resent [place] Advance Directives Patient has advance care planning documents on file. For more information, sahara e contact: Kelton Crockett [address] [place] [address]
--- OUTSIDE RECORDS SUMMARY | 2019-05-15 23:36 | XMS REPORT | Continuity of Care Document ---
Author Author [employer] Organization [employer] Address Unknown Phone Unavailable Care Team Providers Care Database Developer Name Role Phone [employer] Information [employer] Unavailable Unavailable Problems Problem Status Onset Date Classification Date Reported Comments Source S32.0 - FRACTURE OF LUMBAR VERTEBRA Active 03/02/2016 [facility] V70.1 - PSYCH EXAM-AUTH Active 08/20/2012 [facility] [place] Temperature change2 Resolved 06/16/2010 Problem 03/05/2016 pt's called my attention to the pt's bedside, pt is awake malert and oriented but reports feeling hot and sudden tiredness, temperature 101.6, Dr baer called, ordered chest Xray, blood culture and ua urine culture and sensitivity, orders carried out [facility] Temperature change2 Resolved 06/16/2010 Problem 08/22/2012 2pt's called my attention to the pt's bedside, pt is awake malert and oriented but reports feeling hot and sudden tiredness, temperature 101.6, Dr baer called, ordered chest Xray, blood culture and ua urine culture and sensitivity, orders carried out [facility] [place] Fracture Active Problem 03/05/2016 [facility] [place] Infection1 Active Problem 03/05/2016 elevated wbc sec ondary to redness pin sites. M.D education nurse informed stated that he would discuss with primary team this am to decide what is best thing to do [facility] [place] Obesity Active Problem 03/05/2016 [facility] [place] Pain Active Problem 03/05/2016 [facility] [place] Spinal fusion Active Problem 03/05/2016 [facility] [place] Anxiety Inactive Problem 08/22/2012 MH [facility] [place] Fracture Active Problem 08/22/2012 [facility] [place] Infection1 Active Problem 08/22/2012 1elevated wbc sec ondary to redness pin sites. M.D education nurse informed stated that he would discuss with primary team this am to decide what is best thing to do [facility] [place] Pain Active Problem 08/22/2012 [facility] [place] Spinal fusion Active Problem 08/22/2012 [facility] [place] Anemia Active Problem 02/11/2019 [facility] Bilateral cellulitis of lower leg Active Problem 02/11/2019 [facility] Carotid stenosis Active Problem 02/11/2019 [facility] Cellulitis Active Problem 02/11/2019 [facility] Failure of outpatient treatment Active Problem 02/11/2019 [facility] GI bleed Active Problem 02/11/2019 [facility] Renal insufficiency Active Problem 02/11/2019 [facility] Syncope Active Problem 02/11/2019 [facility] Medications Medication Details Route Status Patient Instructions Ordering Provider Order Date Source Hydrocodone Bit/Acetaminophen ([place] 10-325 Tablet) 1 Each Tablet, 1 Tab Oral Every 6 Hours Active 05/14/2018 [facility] Tiotropium [place] (Spiriva) 18 Mcg Cap.w.dev, 18 Mcg Inhalation Daily Active 05/14/2018 [facility] Aspirin (Aspir 81) 81 Mg Tablet.dr, 81 Mg Oral Daily Active 01/08/2018 [facility] Gabapentin 100 Mg Capsule, 100 Mg Oral Twice A Day Active 01/01/2018 [facility] Metoprolol Succinate (Toprol Xl) 50 Mg Tab.er.24h, 100 Mg Oral Daily Active 01/01/2018 [facility] Amiodarone Hcl 200 Mg Tablet, 200 Mg Oral Daily Active 12/30/2017 [facility] Atorvastatin Calcium (Lipitor) 80 Mg Tablet, 80 Mg Oral Bedtime Active 12/30/2017 [facility] Clindamycin Hcl (Cleocin Hcl) 150 Mg Capsule, 300 Mg Oral Four Times Daily Active 12/30/2017 [facility] Duloxetine Hcl (Cymbalta) 20 Mg Capcr, 20 Mg Oral Daily Active 12/30/2017 [facility] Ezetimibe (Zetia) 10 Mg Tablet, 10 Mg Oral Daily Active 12/30/2017 [facility] Furosemide (Lasix) 20 Mg Tablet, 20 Mg Oral Daily Active 12/30/2017 [facility] Mometasone/Formoterol (Dulera 200 Mcg/5 Mcg Inhaler) 13 Gm Hfa.aer.ad, 2 Sprays Twice A Day Active 12/30/2017 [facility] Omeprazole 40 Mg Capsule., Active 12/30/2017 [facility] Ropinirole Hcl 0.25 Mg Tablet, 0.25 Mg Oral Three Times A Day Active 12/30/2017 [facility] Valsartan (Diovan) 80 Mg Tab, 40 Mg Oral Daily Active 12/30/2017 [facility] Warfarin Sodium 1 Mg Tablet, 1 Mg Oral Daily Active 12/30/2017 [facility] Clindamycin Hcl 150 Mg Capsule, 300 Mg Oral Twice A Day Active 06/30/2017 [facility] Clopidogrel Bisulfate (Plavix) 75 Mg Tablet, 75 Mg Oral Daily Active 06/30/2017 [facility] Amlodipine Besylate 10 Mg Tablet, 5 Mg Oral Daily Active 05/14/2017 [facility] Atorvastatin Calcium 20 Mg Tablet, 20 Mg Oral Daily Active 05/14/2017 [facility] Clindamycin Hcl 300 Mg Capsule, 300 Mg Oral Every 6 Hours Active 05/14/2017 [facility] Duloxetine Hcl (Cymbalta) 30 Mg Capsule., 30 Mg Oral Daily Active 05/14/2017 [facility] Hydrochlorothiazide 25 Mg Tablet, 25 Mg Oral Daily Active 05/14/2017 [facility] Losartan/Hydrochlorothiazide (Hyzaar 50-12.5 Tablet) 1 Each Tablet, 1 Ea Oral Daily Active 05/14/2017 [facility] Mometasone/Formoterol (Dulera 200 Mcg/5 Mcg Inhaler) 13 Gm Hfa.aer.ad, 2 Inh Inhalation Daily Active 05/14/2017 [facility] Omeprazole 40 Mg Capsule., 80 Mg Oral Daily Active 05/14/2017 [facility] Ropinirole Hcl 1 Mg Tablet, 1 Mg Oral Daily Active 05/14/2017 [facility] Budesonide/Formoterol Fumarate (Symbicort 80-4.5 Mcg Inhaler) 10.2 Gm Hfa.aer.ad, As Needed Active 01/14/2017 [facility] Calcium Carbonate (Calcium) 600 Mg Tablet, 600 Mg Oral Daily Active 01/14/2017 [facility] Cyanocobalamin (Vitamin B-12) (B-12) 2,500 Mcg Tab.subl, 2500 Mcg Oral Daily Active 01/14/2017 [facility] Losartan/Hydrochlorothiazide (Hyzaar 50-12.5 Tablet) 1 Each Tablet, 1 Tab Oral Daily Active 01/14/2017 [facility] Meloxicam 15 Mg Tablet, 15 Mg Oral Daily Active 01/14/2017 [facility] Aspirin (Aspir 81) 81 Mg Tablet. Daily Active [facility] Atorvastatin Calcium 20 Mg Tablet Bedtime Active [facility] Breo Active [facility] Cephalexin Monohydrate (Keflex) 500 Mg Capsule Use As Directed Active M,W,F [facility] Clopidogrel Bisulfate (Plavix) 75 Mg Tablet Daily Active [facility] Duloxetine Hcl (Cymbalta) 30 Mg Capsule. Daily Active [facility] Furosemide (Lasix) 40 Mg Tablet Twice A Day Active [facility] Gabapentin 300 Mg Capsule Bedtime Active [facility] Metolazone 5 Mg Tablet As Needed Active [facility] Metoprolol Succinate 25 Mg Tab.er.24h Daily Active [facility] Omeprazole 40 Mg Capsule. Twice A Day Active [facility] Ropinirole Hcl (Requip) 4 Mg Tablet Bedtime Active [facility] Tiotropium [place] (Spiriva) 18 Mcg Cap.w.dev Daily Active [facility] Tramadol Hcl (Ultram) 50 Mg Tablet Every 6 Hours as needed for Pain Active [facility] Warfarin Sodium (Coumadin) 2.5 Mg Tablet Daily Active [facility] Allergies, Adverse Reactions, Alerts Substance Category Reaction Severity Reaction type Status Date Reported Comments Source Cyclobenzaprine HALLUCINATIONS Severe Allergy to Substance Active 11/15/2018 [facility] Flexeril Assertion Drug allergy Active [facility] shellfish Assertion Drug allergy Active [facility] [place] Immunizations No Data Provided for This Section Results Order Name Results Value Reference Range Date Interpretation Comments Source Blood leukocytes automated count (number/volume) 8.75 4.8 - 10.8 10/18/2018 [facility] Blood erythrocytes automated count (number/volume) 4.44 4.3 - 5.7 10/18/2018 [facility] Blood hemoglobin measurement (moles/volume) 10.9 14.0 - 18.0 10/18/2018 [facility] Automated blood hematocrit (volume fraction) 36.3 38.2 - 49.6 10/18/2018 [facility] Automated erythrocyte mean corpuscular volume 81.8 81 - 99 10/18/2018 [facility] Automated erythrocyte mean corpuscular hemoglobin (mass per erythrocyte) 24.5 28 - 32 10/18/2018 [facility] Automated erythrocyte mean corpuscular hemoglobin concentration measurement (mass/volume) 30.0 31 - 35 10/18/2018 [facility] RDW BldCo-Rto 17.3 11.7 - 14.4 10/18/2018 [facility] Automated blood platelet count (count/volume) 233 140 - 360 10/18/2018 [facility] Automated blood segmented neutrophil count as percentage of total leukocytes 69.3 38.7 - 80.0 10/18/2018 [facility] Automated blood lymphocyte count as percentage ot total leukocytes 17.9 18.0 - 39.1 10/18/2018 [facility] Automated blood monocyte count as percentage of total leukocytes 8.9 4.4 - 11.3 10/18/2018 [facility] Automated blood eosinophil count as percentage of total leukocytes 3.3 0.0 - 6.0 10/18/2018 [facility] Automated blood basophil count as percentage of total leukocytes 0.1 0.0 - 1.0 10/18/2018 [facility] IM GRANULOCYTES % 0.5 0.0 - 1.0 10/18/2018 [facility] Automated blood neutrophil count 6.1 2.1 - 6.9 10/18/2018 [facility] Blood lymphocytes count (number/volume) 1.6 1.0 - 3.2 10/18/2018 [facility] Blood monocytes automated count (number/volume) 0.8 0.2 - 0.8 10/18/2018 [facility] Automated blood eosinophil count 0.3 0.0 - 0.4 10/18/2018 [facility] Automated blood basophil count (count/volume) 0.0 0.0 - 0.1 10/18/2018 [facility] Absolute Immature Granulocyte (auto 0.04 0 - 0.1 10/18/2018 [facility] Prothrombin time (PT) in platelet poor plasma by coagulation assay 27.9 11.9 - 14.5 10/18/2018 [facility] INR in Platelet poor plasma by Coagulation assay 2.40 10/18/2018 [facility] Activated partial thromboplastin time (aPTT) in platelet poor plasma bycoagulation assay 63.5 23.8 - 35.5 10/18/2018 [facility] Serum or plasma sodium measurement (moles/volume) 139 136 - 145 10/18/2018 [facility] Serum or plasma potassium measurement (moles/volume) 4.3 3.5 - 5.1 10/18/2018 [facility] Serum or plasma chloride measurement (moles/volume) 104 98 - 107 10/18/2018 [facility] Serum or plasma carbon dioxide, total measurement (moles/volume) 27 22 - 29 10/18/2018 [facility] Serum or plasma anion gap 12.3 8 - 16 10/18/2018 [facility] Serum or plasma urea nitrogen measurement (mass/volume) 18 7 - 26 10/18/2018 [facility] Serum or plasma creatinine measurement (mass/volume) 1.57 0.72 - 1.25 10/18/2018 [facility] Serum or plasma urea nitrogen/creatinine mass ratio 11 6 - 25 10/18/2018 [facility] Estimated glomerular filtration rate (GFR) determination 45 60 10/18/2018 [facility] Glucose measurement 110 74 - 118 10/18/2018 [facility] Serum or plasma calcium measurement (mass/volume) 9.0 8.4 - 10.2 10/18/2018 [facility] Serum or plasma total bilirubin measurement (mass/volume) 0.3 0.2 - 1.2 10/18/2018 [facility] Aspartate Amino Transf (AST/SGOT) 16 5 - 34 10/18/2018 [facility] Serum or plasma alanine aminotransferase measurement (enzymatic activity/volume) 15 0 - 55 10/18/2018 [facility] Serum or plasma protein measurement (mass/volume) 7.5 6.5 - 8.1 10/18/2018 [facility] Serum or plasma albumin measurement (mass/volume) 3.5 3.5 - 5.0 10/18/2018 [facility] Plasma globulin measurement (mass/volume) 4.0 2.3 - 3.5 10/18/2018 [facility] Serum or plasma albumin/globulin mass ratio 0.9 0.8 - 2.0 10/18/2018 [facility] Serum or plasma alkaline phosphatase measurement (enzymatic activity/volume) 125 40 - 150 10/18/2018 [facility] Serum or plasma creatine kinase measurement (enzymatic activity/volume) 195 30 - 200 07/05/2018 [facility] Serum or plasma creatine kinase MB measurement (mass/volume) 5.10 0 - 5.0 07/05/2018 [facility] Troponin I measurement by highly sensitive enzyme immunoassay 0.001 0 - 0.300 07/05/2018 [facility] Urine opiates screening test NEGATIVE NEGATIVE 07/05/2018 [facility] Barbiturates screen, urine NEGATIVE NEGATIVE 07/05/2018 [facility] Urine phencyclidine detection by screening method NEGATIVE NEGATIVE 07/05/2018 [facility] Urine amphetamines detection by screen method > 1000 ng/mL NEGATIVE NEGATIVE 07/05/2018 [facility] Urine Methamphetamines Screen NEGATIVE NEGATIVE 07/05/2018 [facility] Urine benzodiazepines detection by screening method NEGATIVE NEGATIVE 07/05/2018 [facility] Urine cocaine measurement (mass/volume) NEGATIVE NEGATIVE 07/05/2018 [facility] Urine cannabinoids detection by screening method NEGATIVE NEGATIVE 07/05/2018 [facility] Urine color determination YELLOW YELLOW 07/05/2018 [facility] Urine clarity CLEAR CLEAR 07/05/2018 [facility] Specific gravity of Urine by Test strip 1.020 1.010 - 1.025 07/05/2018 [facility] Urine pH measurement by automated test strip 5 5 - 7 07/05/2018 [facility] Urine leukocyte esterase detection by dipstick NEGATIVE NEGATIVE 07/05/2018 [facility] Urine nitrite detection NEGATIVE NEGATIVE 07/05/2018 [facility] Urine protein measurement by test strip (mass/volume) NEGATIVE NEGATIVE 07/05/2018 [facility] Urine glucose detection NEGATIVE NEGATIVE 07/05/2018 [facility] Urine ketones detection by automated test strip NEGATIVE NEGATIVE 07/05/2018 [facility] Urine urobilinogen measurement by test strip (mass/volume) 0.2 0.2 - 1 07/05/2018 [facility] Urine total bilirubin measurement (mass/volume) NEGATIVE NEGATIVE 07/05/2018 [facility] Urine erythrocytes detection NEGATIVE NEGATIVE 07/05/2018 [facility] Automated urine sediment leukocyte count by microscopy (number/high power field) 0-5 0 - 5 07/05/2018 [facility] Erythrocytes detection in urine sediment by light microscopy NONE 0 - 5 07/05/2018 [facility] Bacteria detection in urine sediment by light microscopy RARE NONE 07/05/2018 [facility] Epithelial cells detection in urine sediment by light microscopy RARE NONE 07/05/2018 [facility] Blood culture NO GROWTH AFTER 5 DAYS, FINAL REPORT 07/05/2018 [facility] Lactic Acid Level 12.2 4.5 - 19.8 07/05/2018 [facility] Serum or plasma magnesium measurement (mass/volume) 2.6 1.3 - 2.1 07/05/2018 [facility] BNP Bld-mCnc 27.4 0 - 100 07/05/2018 [facility] Stool gastrointestinal hemoglobin detection POSITIVE NEGATIVE 05/14/2018 [facility] Pathology Reports No Data Provided for This Section Diagnostic Reports Report Value Date Source Spine thoracolumbar 2 views DX EXAM: XR thoracolumbar spine 2 views DATE: 03/02/2016 1:27 PM CDT INDICATION: Pain with radiculopathy COMPARISON: None available. TECHNIQUE: 2 views thoracolumbar spine. FINDINGS: AP and lateral views of the thoracolumbar spine. * Bones: * 5 [id number]-guu-[id number], lumbar-type vertebra are present. * There is [...] to evaluate patient's symptoms of radicul[facility]. [facility] Notes No Data Provided for This Section Discharge Summaries No Data Provided for This Section History and Physicals No Data Provided for This Section Vital Signs No Data Provided for This Section Encounters Location Location Details Encounter Type Encounter Number Reason For Visit Attending Provider ADM Date DC Date Status Source OD [id number] V70.1 - PSYCH EXAM-AUTH CHUCK MELENDEZHeidiAGUSTIN [facility]/20[facility] [place] [facility] [id number] 03/02/2016 [facility] [id number] [facility] 03/02/2016 03/03/2016 [facility] Outpatient [id number] [facility] 03/09/2016 [facility] Outpatient [id number] [facility] 03/23/2016 [facility] Discharged Inpatient [id number] ESDRAS ALMAGUER MD 05/17/2018 05/18/2018 [facility] Discharged Inpatient (obs) [id number] ESDRAS ALMAGUER MD 07/05/2018 07/05/2018 [facility] Departed Emergency Room [id number] BK GAMBLE MD 10/18/2018 10/19/2018 [facility] Departed Emergency Room [id number] PAULA BAEZ MD 11/15/2018 11/15/2018 [facility] Departed Emergency Room [id number] DENVER SILVESTRE MD 12/06/2018 12/06/2018 [facility] Discharged Recurring [id number] KARLA GREGORY MD 01/03/2019 01/10/2019 [facility] Discharged Recurring [id number] KARLA GREGORY MD 01/25/2019 02/10/2019 [facility] Procedures Procedure Code Date Perfomer Comments Source STRAPPING OF KNEE [id number] 11/15/2018 [facility] X-ray of chest, two views [id number] 10/18/2018 GAMBLE [facility] Computed tomography of brain without radiopaque contrast [id number] 07/05/2018 SWEET [facility] EXCISION OF STOMACH, PYLORUS, ENDO, DIAGN [id number] 05/16/2018 [facility] TRANSFUSE NONAUT RED BLOOD CELLS IN PERIPH VEIN, PERC [id number] 05/15/2018 [facility] X-ray of chest, single view [id number] 05/14/2018 JONATAN [facility] Hip replacement [id number] GABRIEL [facility] Assessment and Plan No Data Provided for This Section Plan of Care Plan of Care Date Source Prescriptions See Medication Section 02/11/2019 [facility] Social History Social History Date Source Social History Problem Response Recorded Date/Time Onset Date Status Hx Psychiatric Problems No 05/14/2018 5:51pm Not Applicable Not Applicable Hx Eating Disorder No 05/14/2018 5:51pm Not Applicable Not Applicable Hx Substance Use Disorder No 05/14/2018 5:51pm Not Applicable Not Applicable Hx Depression No 05/14/2018 5:51pm Not Applicable Not Applicable Hx Alcohol Use No 05/14/2018 5:51pm Not Applicable Not Applicable Hx Substance Use Treatment No 05/14/2018 5:51pm Not Applicable Not Applicable Hx Physical Abuse No 05/14/2018 5:51pm Not Applicable Not Applicable 02/11/2019 [facility] Social History TypeResponse Smoking Status Current every day smoker; Type: Cigarettes; Tobacco use per day: 2; Exposed at work; Other Tobacco Frequency patient smoke 2 packs daily; Cigarette Smoking Last 365 Days No; Reg Smoking Cessation Counseling No 03/02/2016 [place] Family History No Data Provided for This Section Advance Directives Order Name Results Value Date Source Advance Directives Advance Directives Directive Response Recorded Date/Time Does the patient have an advance directive? No 07/05/18 3:46pm If yes, is advance directive on file with [facility]? No 12/07/18 12:05am If not on file with [facility] will patient provide a copy? No 12/07/18 12:05am Do you have a Directive to Physician? No 01/11/19 10:49am Do you have a Medical Power of Spool Tender? No 01/11/19 10:49am Do you have an out of hospital Do Not Resuscitate Order? No 01/11/19 10:49am Do you have any special needs we should be aware of? No 01/11/19 10:49am Do you have a support person here with you today? No 01/11/19 10:49am Did patient receive Notice of Privacy Practices? Yes 01/11/19 10:49am Did patient receive patient rights and responsibilities? Yes 01/11/19 10:49am 02/11/2019 [facility] Functional Status No Data Provided for This Section
[2019-05-16 00:26] LABS: ALBUMIN 3.9 g/dL (3.5-5.0); ALBUMIN/GLOBULIN RATIO 1.1 (0.8-2.0); ANION GAP 20.2 mmol/L (8-16); CALCIUM 9.7 mg/dL (8.4-10.2); CREATININE, SERUM 1.71 mg/dL (0.72-1.25); POTASSIUM 3.2 mmol/L (3.5-5.1)
[2019-05-16 00:28] LABS: BASOPHILS % 0.1 % (0.0-1.0); EOSINOPHILS # (AUTO) 0.4 (0.0-0.4); EOSINOPHILS % 3.3 % (0.0-6.0); HEMATOCRIT 46.1 % (38.2-49.6); HEMOGLOBIN 14.9 g/dL (14.0-18.0); LYMPHOCYTES # (AUTO) 1.5 (1.0-3.2); LYMPHOCYTES % 13.8 % (18.0-39.1); MEAN CORPUSCULAR HEMOGLOBIN 27.5 pg (28-32); MEAN CORPUSCULAR HGB CONC 32.3 g/dL (31-35); MEAN CORPUSCULAR VOLUME 85.2 fL (81-99); MONOCYTES # (AUTO) 1.3 (0.2-0.8); NEUTROPHILS # (AUTO) 7.8 (2.1-6.9); NEUTROPHILS % 70.4 % (38.7-80.0); PLATELET COUNT 252 x10e3/uL (140-360); RED BLOOD COUNT 5.41 x10e6/uL (4.3-5.7); RED CELL DISTRIBUTION WIDTH 20.9 % (11.7-14.4)
[2019-05-16 00:33] LABS: CREATINE KINASE MB 2.5 ng/mL (0-5.0)
--- NOTE | 2019-05-16 00:58 | Diagnostic Imaging Report ---
EXAMINATION: CHEST SINGLE (PORTABLE) COMPARISON: Chest x-ray 10/18/2018 INDICATION: Shortness of breath ^ERMD ORDER ^[id number] ^0035 ^Y DISCUSSION: Frontal view of the chest obtained at 0038 hours. HEART AND MEDIASTINUM: The heart is mildly enlarged. Cardiac bypass changes are present and stable LINES: None. LUNGS: The lungs are well inflated and clear. No pneumonia or pulmonary edema. PLEURA: No pleural effusion or pneumothorax. Central eventration of the right diaphragm. BONES AND SOFT TISSUES: Fusion hardware is present in the lower thoracic spine. Median sternotomy wires are intact. The soft tissues are normal. IMPRESSION: No acute cardiopulmonary disease. Signed by: Dr. Tony Ireland MD on 05/16/2019 12:55 AM
[2019-05-16 01:04] LABS: BILIRUBIN,URINE NEGATIVE (NEGATIVE); CLARITY,URINE CLEAR (CLEAR); COLOR,URINE YELLOW (YELLOW); KETONES,URINE NEGATIVE (NEGATIVE); LEUKOCYTE ESTERASE ,URINE NEGATIVE (NEGATIVE); NITRITE,URINE NEGATIVE (NEGATIVE); PROTEIN,URINE DIPSTICK NEGATIVE (NEGATIVE); URINE UROBILINOGEN 0.2 mg/dL (0.2 - 1)
[2019-05-16] MEDS ORDERED: POTASSIUM CHLORIDE 20 MEQ TAB CR PO STA (01:36)
[2019-05-16 01:37] LABS: BACTERIA,URINE RARE /HPF; EPITHELIAL CELLS,URINE FEW /LPF; RBC,URINE 0-5 /HPF (0-5); WBC,URINE (MAN) 0-5 /HPF (0-5)
[2019-05-16] MEDS ORDERED: ALBUTEROL/IPRATROPIUM 3 ML NEB NEB ONE (01:45)
[2019-05-16] MEDS ORDERED: POTASSIUM CHLORIDE 20 MEQ TAB CR PO ONE (01:49)
[2019-05-16 02:29] VITALS: BP 135/54
== END 2019-05-16 02:35 | disposition home or self-care (01) ==
LOC: ER 23:31
DX: R06.00 Dyspnea, unspecified (principal); R60.9 Edema, unspecified; J44.1 Chronic obstructive pulmonary disease with (acute) exacerbation; F17.210 Nicotine dependence, cigarettes, uncomplicated
CPT/HCPCS: 36415; 71045; 80053; 81001; 82550; 82553; 83880; 84484; 85025; 94640; 99284

== ENCOUNTER 2019-06-07 15:16 | Emergency (ER) | payer BC, MEDICARE ==
[~2019-06-07] VITALS: Ht 190.5 cm; Wt 112.5 kg
--- OUTSIDE RECORDS SUMMARY | 2019-06-07 15:20 | XMS REPORT | Continuity of Care Document ---
Author Author [employer] Organization [employer] Address Unknown Phone Unavailable Care Team Providers Care Capital Project Engineer Name Role Phone Sentilla Information ISH Unavailable Unavailable Problems Problem Status Onset Date Classification Date Reported Comments Source S32.0 - FRACTURE OF LUMBAR VERTEBRA Active 03/02/2016 [facility] V70.1 - PSYCH EXAM-AUTH Active 08/20/2012 [facility] [place] Temperature change2 Resolved 06/16/2010 Problem 03/05/2016 pt's [...] culture and sensitivity, orders carried out [facility] [place] Fracture Active Problem 03/05/2016 [facility] [place] Infection1 Active Problem 03/05/2016 elevated wbc sec ondary to redness pin sites. M.D client solutions director informed stated that he would discuss with primary team this am to decide what is best thing to do [facility] Obesity Active Problem 03/05/2016 [facility] [place] Pain Active Problem 03/05/2016 [facility] [place] Spinal fusion Active Problem 03/05/2016 [facility] Anxiety Inactive Problem 08/22/2012 [facility] [place] Fracture Active Problem 08/22/2012 [facility] [place] Infection1 Active Problem 08/22/2012 1elevated wbc sec ondary to redness pin sites. M.D client solutions director informed stated that he would discuss with primary team this am to decide what is best thing to do [facility] [place] Pain Active Problem 08/22/2012 [facility] [place] Spinal fusion Active Problem 08/22/2012 [facility] [place] Anemia Active Problem 02/11/2019 [facility] Bilateral cellulitis of lower leg Active Problem 02/11/2019 [facility] Carotid stenosis Active Problem 02/11/2019 [facility] Cellulitis Active Problem 02/11/2019 [facility] Failure of outpatient treatment Active Problem 02/11/2019 [facility] GI bleed Active Problem 02/11/2019 [facility] Renal insufficiency Active Problem 02/11/2019 [facility] Syncope Active Problem 02/11/2019 [facility] Medications Medication Details Route Status Patient Instructions Ordering Provider Order Date Source Hydrocodone Bit/Acetaminophen ([place] 10-325 Tablet) 1 Each Tablet, 1 Tab Oral Every 6 Hours Active 05/14/2018 [facility] Tiotropium [place] (Spiriva) 18 Mcg Cap.w.dev, 18 Mcg Inhalation Daily Active 05/14/2018 [facility] Aspirin (Aspir 81) 81 Mg Tablet.dr, 81 Mg Oral Daily Active 01/08/2018 [facility] Gabapentin 100 Mg Capsule, 100 Mg Oral Twice A Day Active 01/01/2018 [facility] Metoprolol Succinate (Toprol Xl) 50 Mg Tab.er.24h, 100 Mg Oral Daily Active 01/01/2018 [facility] Amiodarone Hcl 200 Mg Tablet, 200 Mg Oral Daily Active 12/30/2017 [facility] Atorvastatin Calcium (Lipitor) 80 Mg Tablet, 80 Mg Oral Bedtime Active 12/30/2017 [facility] Clindamycin Hcl (Cleocin Hcl) 150 Mg Capsule, 300 Mg Oral Four Times Daily Active 12/30/2017 [facility] Duloxetine Hcl (Cymbalta) 20 Mg Capcr, 20 Mg Oral Daily Active 12/30/2017 [facility] Ezetimibe (Zetia) 10 Mg Tablet, 10 Mg Oral Daily Active 12/30/2017 [facility] Furosemide (Lasix) 20 Mg Tablet, 20 Mg Oral Daily Active 12/30/2017 [facility] Mometasone/Formoterol (Dulera 200 Mcg/5 Mcg Inhaler) 13 Gm Hfa.aer.ad, 2 Sprays Twice A Day Active 12/30/2017 [facility] Omeprazole 40 Mg Capsule., Active 12/30/2017 [facility] Ropinirole Hcl 0.25 Mg Tablet, 0.25 Mg Oral Three Times A Day Active 12/30/2017 [facility] Valsartan (Diovan) 80 Mg Tab, 40 Mg Oral Daily Active 12/30/2017 [facility] Warfarin Sodium 1 Mg Tablet, 1 Mg Oral Daily Active 12/30/2017 [facility] Clindamycin Hcl 150 Mg Capsule, 300 Mg Oral Twice A Day Active 06/30/2017 [facility] Clopidogrel Bisulfate (Plavix) 75 Mg Tablet, 75 Mg Oral Daily Active 06/30/2017 [facility] Amlodipine Besylate 10 Mg Tablet, 5 Mg Oral Daily Active 05/14/2017 [facility] Atorvastatin Calcium 20 Mg Tablet, 20 Mg Oral Daily Active 05/14/2017 [facility] Clindamycin Hcl 300 Mg Capsule, 300 Mg Oral Every 6 Hours Active 05/14/2017 [facility] Duloxetine Hcl (Cymbalta) 30 Mg Capsule., 30 Mg Oral Daily Active 05/14/2017 [facility] Hydrochlorothiazide 25 Mg Tablet, 25 Mg Oral Daily Active 05/14/2017 [facility] Losartan/Hydrochlorothiazide (Hyzaar 50-12.5 Tablet) 1 Each Tablet, 1 Ea Oral Daily Active 05/14/2017 [facility] Mometasone/Formoterol (Dulera 200 Mcg/5 Mcg Inhaler) 13 Gm Hfa.aer.ad, 2 Inh Inhalation Daily Active 05/14/2017 [facility] Omeprazole 40 Mg Capsule., 80 Mg Oral Daily Active 05/14/2017 [facility] Ropinirole Hcl 1 Mg Tablet, 1 Mg Oral Daily Active 05/14/2017 [facility] Budesonide/Formoterol Fumarate (Symbicort 80-4.5 Mcg Inhaler) 10.2 Gm Hfa.aer.ad, As Needed Active 01/14/2017 [facility] Calcium Carbonate (Calcium) 600 Mg Tablet, 600 Mg Oral Daily Active 01/14/2017 [facility] Cyanocobalamin (Vitamin B-12) (B-12) 2,500 Mcg Tab.subl, 2500 Mcg Oral Daily Active 01/14/2017 [facility] Losartan/Hydrochlorothiazide (Hyzaar 50-12.5 Tablet) 1 Each Tablet, 1 Tab Oral Daily Active 01/14/2017 [facility] Meloxicam 15 Mg Tablet, 15 Mg Oral Daily Active 01/14/2017 [facility] Aspirin (Aspir 81) 81 Mg Tablet. Daily Active [facility] Atorvastatin Calcium 20 Mg Tablet Bedtime Active [facility] Breo Active [facility] Cephalexin Monohydrate (Keflex) 500 Mg Capsule Use As Directed Active M,W,F [facility] Clopidogrel Bisulfate (Plavix) 75 Mg Tablet Daily Active [facility] Duloxetine Hcl (Cymbalta) 30 Mg Capsule. Daily Active [facility] Furosemide (Lasix) 40 Mg Tablet Twice A Day Active [facility] Gabapentin 300 Mg Capsule Bedtime Active [facility] Metolazone 5 Mg Tablet As Needed Active [facility] Metoprolol Succinate 25 Mg Tab.er.24h Daily Active [facility] Omeprazole 40 Mg Capsule. Twice A Day Active [facility] Ropinirole Hcl (Requip) 4 Mg Tablet Bedtime Active [facility] Tiotropium [place] (Spiriva) 18 Mcg Cap.w.dev Daily Active [facility] Tramadol Hcl (Ultram) 50 Mg Tablet Every 6 Hours as needed for Pain Active [facility] Warfarin Sodium (Coumadin) 2.5 Mg Tablet Daily Active [facility] Allergies, Adverse Reactions, Alerts Substance Category Reaction Severity Reaction type Status Date Reported Comments Source Cyclobenzaprine HALLUCINATIONS Severe Allergy to Substance Active 11/15/2018 [facility] Flexeril Assertion Drug allergy Active [facility] shellfish Assertion Drug allergy Active [facility] [place] Immunizations No Data Provided for This Section Results Order Name Results Value Reference Range Date Interpretation Comments Source Blood leukocytes automated count (number/volume) 8.75 4.8 - 10.8 10/18/2018 [facility] Blood erythrocytes automated count (number/volume) 4.44 4.3 - 5.7 10/18/2018 [facility] Blood hemoglobin measurement (moles/volume) 10.9 14.0 - 18.0 10/18/2018 [facility] Automated blood hematocrit (volume fraction) 36.3 38.2 - 49.6 10/18/2018 [facility] Automated erythrocyte mean corpuscular volume 81.8 81 - 99 10/18/2018 [facility] Automated erythrocyte mean corpuscular hemoglobin (mass per erythrocyte) 24.5 28 - 32 10/18/2018 [facility] Automated erythrocyte mean corpuscular hemoglobin concentration measurement (mass/volume) 30.0 31 - 35 10/18/2018 [facility] RDW BldCo-Rto 17.3 11.7 - 14.4 10/18/2018 [facility] Automated blood platelet count (count/volume) 233 140 - 360 10/18/2018 [facility] Automated blood segmented neutrophil count as percentage of total leukocytes 69.3 38.7 - 80.0 10/18/2018 [facility] Automated blood lymphocyte count as percentage ot total leukocytes 17.9 18.0 - 39.1 10/18/2018 [facility] Automated blood monocyte count as percentage of total leukocytes 8.9 4.4 - 11.3 10/18/2018 [facility] Automated blood eosinophil count as percentage of total leukocytes 3.3 0.0 - 6.0 10/18/2018 [facility] Automated blood basophil count as percentage of total leukocytes 0.1 0.0 - 1.0 10/18/2018 [facility] IM GRANULOCYTES % 0.5 0.0 - 1.0 10/18/2018 [facility] Automated blood neutrophil count 6.1 2.1 - 6.9 10/18/2018 [facility] Blood lymphocytes count (number/volume) 1.6 1.0 - 3.2 10/18/2018 [facility] Blood monocytes automated count (number/volume) 0.8 0.2 - 0.8 10/18/2018 [facility] Automated blood eosinophil count 0.3 0.0 - 0.4 10/18/2018 [facility] Automated blood basophil count (count/volume) 0.0 0.0 - 0.1 10/18/2018 [facility] Absolute Immature Granulocyte (auto 0.04 0 - 0.1 10/18/2018 [facility] Prothrombin time (PT) in platelet poor plasma by coagulation assay 27.9 11.9 - 14.5 10/18/2018 [facility] INR in Platelet poor plasma by Coagulation assay 2.40 10/18/2018 [facility] Activated partial thromboplastin time (aPTT) in platelet poor plasma bycoagulation assay 63.5 23.8 - 35.5 10/18/2018 [facility] Serum or plasma sodium measurement (moles/volume) 139 136 - 145 10/18/2018 [facility] Serum or plasma potassium measurement (moles/volume) 4.3 3.5 - 5.1 10/18/2018 [facility] Serum or plasma chloride measurement (moles/volume) 104 98 - 107 10/18/2018 [facility] Serum or plasma carbon dioxide, total measurement (moles/volume) 27 22 - 29 10/18/2018 [facility] Serum or plasma anion gap 12.3 8 - 16 10/18/2018 [facility] Serum or plasma urea nitrogen measurement (mass/volume) 18 7 - 26 10/18/2018 [facility] Serum or plasma creatinine measurement (mass/volume) 1.57 0.72 - 1.25 10/18/2018 [facility] Serum or plasma urea nitrogen/creatinine mass ratio 11 6 - 25 10/18/2018 [facility] Estimated glomerular filtration rate (GFR) determination 45 60 10/18/2018 [facility] Glucose measurement 110 74 - 118 10/18/2018 [facility] Serum or plasma calcium measurement (mass/volume) 9.0 8.4 - 10.2 10/18/2018 [facility] Serum or plasma total bilirubin measurement (mass/volume) 0.3 0.2 - 1.2 10/18/2018 [facility] Aspartate Amino Transf (AST/SGOT) 16 5 - 34 10/18/2018 [facility] Serum or plasma alanine aminotransferase measurement (enzymatic activity/volume) 15 0 - 55 10/18/2018 [facility] Serum or plasma protein measurement (mass/volume) 7.5 6.5 - 8.1 10/18/2018 [facility] Serum or plasma albumin measurement (mass/volume) 3.5 3.5 - 5.0 10/18/2018 [facility] Plasma globulin measurement (mass/volume) 4.0 2.3 - 3.5 10/18/2018 [facility] Serum or plasma albumin/globulin mass ratio 0.9 0.8 - 2.0 10/18/2018 [facility] Serum or plasma alkaline phosphatase measurement (enzymatic activity/volume) 125 40 - 150 10/18/2018 [facility] Serum or plasma creatine kinase measurement (enzymatic activity/volume) 195 30 - 200 07/05/2018 [facility] Serum or plasma creatine kinase MB measurement (mass/volume) 5.10 0 - 5.0 07/05/2018 [facility] Troponin I measurement by highly sensitive enzyme immunoassay 0.001 0 - 0.300 07/05/2018 [facility] Urine opiates screening test NEGATIVE NEGATIVE 07/05/2018 [facility] Barbiturates screen, urine NEGATIVE NEGATIVE 07/05/2018 [facility] Urine phencyclidine detection by screening method NEGATIVE NEGATIVE 07/05/2018 [facility] Urine amphetamines detection by screen method > 1000 ng/mL NEGATIVE NEGATIVE 07/05/2018 [facility] Urine Methamphetamines Screen NEGATIVE NEGATIVE 07/05/2018 [facility] Urine benzodiazepines detection by screening method NEGATIVE NEGATIVE 07/05/2018 [facility] Urine cocaine measurement (mass/volume) NEGATIVE NEGATIVE 07/05/2018 [facility] Urine cannabinoids detection by screening method NEGATIVE NEGATIVE 07/05/2018 [facility] Urine color determination YELLOW YELLOW 07/05/2018 [facility] Urine clarity CLEAR CLEAR 07/05/2018 [facility] Specific gravity of Urine by Test strip 1.020 1.010 - 1.025 07/05/2018 [facility] Urine pH measurement by automated test strip 5 5 - 7 07/05/2018 [facility] Urine leukocyte esterase detection by dipstick NEGATIVE NEGATIVE 07/05/2018 [facility] Urine nitrite detection NEGATIVE NEGATIVE 07/05/2018 [facility] Urine protein measurement by test strip (mass/volume) NEGATIVE NEGATIVE 07/05/2018 [facility] Urine glucose detection NEGATIVE NEGATIVE 07/05/2018 [facility] Urine ketones detection by automated test strip NEGATIVE NEGATIVE 07/05/2018 [facility] Urine urobilinogen measurement by test strip (mass/volume) 0.2 0.2 - 1 07/05/2018 [facility] Urine total bilirubin measurement (mass/volume) NEGATIVE NEGATIVE 07/05/2018 [facility] Urine erythrocytes detection NEGATIVE NEGATIVE 07/05/2018 [facility] Automated urine sediment leukocyte count by microscopy (number/high power field) 0-5 0 - 5 07/05/2018 [facility] Erythrocytes detection in urine sediment by light microscopy NONE 0 - 5 07/05/2018 [facility] Bacteria detection in urine sediment by light microscopy RARE NONE 07/05/2018 [facility] Epithelial cells detection in urine sediment by light microscopy RARE NONE 07/05/2018 [facility] Blood culture NO GROWTH AFTER 5 DAYS, FINAL REPORT 07/05/2018 [facility] Lactic Acid Level 12.2 4.5 - 19.8 07/05/2018 [facility] Serum or plasma magnesium measurement (mass/volume) 2.6 1.3 - 2.1 07/05/2018 [facility] BNP Bld-mCnc 27.4 0 - 100 07/05/2018 [facility] Stool gastrointestinal hemoglobin detection POSITIVE NEGATIVE 05/14/2018 [facility] Pathology Reports No Data Provided for This Section Diagnostic Reports Report Value Date Source Spine thoracolumbar 2 views DX EXAM: XR thoracolumbar spine 2 views DATE: 03/02/2016 1:27 PM CDT INDICATION: Pain with radiculopathy COMPARISON: None available. TECHNIQUE: 2 views thoracolumbar spine. FINDINGS: AP and lateral views of the thoracolumbar spine. * Bones: * 5 [id number], lumbar-type vertebra are present. * There is [...] to evaluate patient's symptoms of radiculopathy. [facility] [place] [facility] No Data Provided for This Section Discharge Summaries No Data Provided for This Section History and Physicals No Data Provided for This Section Vital Signs No Data Provided for This Section Encounters Location Location Details Encounter Type Encounter Number Reason For Visit Attending Provider ADM Date DC Date Status Source OD [id number] V70.1 - PSYCH EXAM-AUTH CHUCK MELENDEZHeidiAGUSTIN 08/20/2012 [facility] [place] [id number] [facility] 03/02/2016 [facility] Outpatient Imaging [place] [facility] [id number] [facility] 03[facility]02/2016 03/03/2016 [facility] Outpatient [id number] [facility] 03/09/2016 [facility] Outpatient [id number] [facility] 03/23/2016 [facility] Discharged Inpatient [id number] ESDRAS ALMAGUER MD 05/17/2018 05/18/2018 [facility] Discharged Inpatient (obs) [id number] ESDRAS ALMAGUER MD 07/05/2018 07/05/2018 [facility] Departed Emergency Room [id number] BK GAMBLE MD 10/18/2018 10/19/2018 [facility] Departed Emergency Room [id number] PAULA BAEZ MD 11/15/2018 11/15/2018 [facility] Departed Emergency Room [id number] DENVER SILVESTRE MD 12/06/2018 12/06/2018 [facility] Discharged Recurring [id number] KARLA GREGORY MD 01/03/2019 01/10/2019 [facility] Discharged Recurring [id number] KARLA GREGORY MD 01/25/2019 02/10/2019 [facility] Procedures Procedure Code Date Perfomer Comments Source STRAPPING OF KNEE [id number] 11/15/2018 [facility] X-ray of chest, two views [id number] 10/18/2018 GAMBLE [facility] Computed tomography of brain without radiopaque contrast [id number] 07/05/2018 SWEET [facility] EXCISION OF STOMACH, PYLORUS, ENDO, DIAGN [id number] 05/16/2018 [facility] TRANSFUSE NONAUT RED BLOOD CELLS IN PERIPH VEIN, PERC [id number] 05/15/2018 [facility] X-ray of chest, single view [id number] 05/14/2018 JONATAN [facility] Hip replacement [id number] GABRIEL [place] Assessment and Plan No Data Provided for This Section Plan of Care Plan of Care Date Source Prescriptions See Medication Section 02/11/2019 [facility] Social History Social History Date Source Social [...] 05/14/2018 5:51pm Not Applicable Not Applicable 02/11/2019 [facility] Social History TypeResponse Smoking Status Current every [...] yes, is advance directive on file with [facility]? No 12/07/18 12:05am If not on file with [facility] will patient provide a copy? No 12/07/18 12:05am Do you have a Directive to Physician? No 01/11/19 10:49am Do you have a Medical Power of Educational Sign Language Interpreter? No 01/11/19 10:49am Do you have an [...] rights and responsibilities? Yes 01/11/19 10:49am 02/11/2019 [facility] Functional Status No Data Provided for This Section
[2019-06-07 16:00] LABS: BASOPHILS % 0.2 % (0.0-1.0); EOSINOPHILS # (AUTO) 0.2 (0.0-0.4); EOSINOPHILS % 2.7 % (0.0-6.0); HEMATOCRIT 43.8 % (38.2-49.6); HEMOGLOBIN 14.2 g/dL (14.0-18.0); LYMPHOCYTES # (AUTO) 1.3 (1.0-3.2); LYMPHOCYTES % 14.9 % (18.0-39.1); MEAN CORPUSCULAR HEMOGLOBIN 28.6 pg (28-32); MEAN CORPUSCULAR HGB CONC 32.4 g/dL (31-35); MEAN CORPUSCULAR VOLUME 88.3 fL (81-99); MONOCYTES # (AUTO) 0.9 (0.2-0.8); MONOCYTES % 9.8 % (4.4-11.3); NEUTROPHILS # (AUTO) 6.2 (2.1-6.9); NEUTROPHILS % 71.9 % (38.7-80.0); PLATELET COUNT 193 x10e3/uL (140-360); RED BLOOD COUNT 4.96 x10e6/uL (4.3-5.7); RED CELL DISTRIBUTION WIDTH 17.6 % (11.7-14.4)
[2019-06-07 16:11] LABS: INR 1.64
[2019-06-07 16:18] LABS: ALANINE AMINOTRANSFERASE 33 IU/L (0-55); ALBUMIN 3.5 g/dL (3.5-5.0); ALKALINE PHOSPHATASE 114 IU/L (40-150); ANION GAP 14.7 mmol/L (8-16); BLOOD UREA NITROGEN 13 mg/dL (7-26); BUN/CREATININE RATIO 12 (6-25); CARBON DIOXIDE 27 mmol/L (22-29); CHLORIDE 101 mmol/L (98-107); CREATINE KINASE 89 IU/L (30-200); CREATININE, SERUM 1.09 mg/dL (0.72-1.25); EST GLOMERULAR FILTRATION RATE > 60 ML/MIN (60-); GLUCOSE 129 mg/dL (74-118); POTASSIUM 3.7 mmol/L (3.5-5.1); SODIUM 139 mmol/L (136-145)
--- NOTE | 2019-06-07 16:24 | Diagnostic Imaging Report ---
EXAMINATION: CHEST SINGLE (PORTABLE) INDICATION: Dizziness COMPARISON: Chest radiograph 05/16/2019 FINDINGS: TUBES and LINES: Sternotomy wires intact. LUNGS: The lung volumes are normal. No focal consolidation or pulmonary edema. Minimal bibasilar subsegmental atelectasis. PLEURA: No pleural effusion or pneumothorax. HEART AND MEDIASTINUM: The cardiomediastinal silhouette is normal in size and contour. Postoperative findings of CABG. BONES AND SOFT TISSUES: No acute fracture or dislocation. Lumbar spinal fusion hardware partially visualized. UPPER ABDOMEN: No free air under the diaphragm. IMPRESSION: No focal pneumonia or pulmonary edema. Signed by: Mary Guardado MD on 06/07/2019 4:20 PM
--- NOTE | 2019-06-07 16:25 | Diagnostic Imaging Report ---
CT BRAIN WO HISTORY: Difficulty speaking COMPARISON: Head CT 07/05/2018 Technique: Noncontrast axial scans were obtained from skull base to the vertex. Coronal and sagittal reconstructions obtained from the axial data. One or more of the following dose reduction techniques were used: Automated exposure control, adjustment of the mA and/or kV according to patient size, and/or utilization of iterative reconstruction technique. DISCUSSION: Scalp/Skull: Unremarkable. Brain sulci: Mildly prominent. Ventricles: Compensatory dilatation. Extra-axial spaces: No masses or fluid collections. Carotid and vertebral artery calcifications are present. Parenchyma: Mild bilateral deep white matter hypodensity is likely chronic microvascular ischemic change. Otherwise, no masses, hemorrhage, or large vascular territory acute infarct. Dural sinuses: No abnormal densities. Sellar/Suprasellar region: Intact. Skull base: Intact. Incidental findings: Both ocular lenses are thinned. IMPRESSION: 1. No acute intracranial abnormalities. 2. Mild supratentorial chronic microvascular ischemic change. Mild generalized cerebral volume loss. Signed by: Dr. Wilber Combs M.D. on 06/07/2019 4:22 PM
[2019-06-07 16:48] LABS: BILIRUBIN,URINE NEGATIVE (NEGATIVE); CLARITY,URINE CLEAR (CLEAR); COLOR,URINE YELLOW (YELLOW); KETONES,URINE NEGATIVE (NEGATIVE); LEUKOCYTE ESTERASE ,URINE NEGATIVE (NEGATIVE); NITRITE,URINE NEGATIVE (NEGATIVE); PROTEIN,URINE DIPSTICK NEGATIVE (NEGATIVE); URINE UROBILINOGEN 0.2 mg/dL (0.2 - 1)
[2019-06-07 17:05] LABS: BACTERIA,URINE FEW /HPF; EPITHELIAL CELLS,URINE MODERATE /LPF; WBC,URINE (MAN) 0-5 /HPF (0-5)
== END 2019-06-07 18:27 | disposition home or self-care (01) ==
LOC: ER 15:16
DX: I67.82 Cerebral ischemia (principal); I48.2 Chronic atrial fibrillation; I10 Essential (primary) hypertension; E11.9 Type 2 diabetes mellitus without complications; J44.9 Chronic obstructive pulmonary disease, unspecified
CPT/HCPCS: 36415; 70450; 71045; 80053; 81001; 82550; 82553; 83880; 84484; 85025; 85610; 85730; 93005; 99284

== ENCOUNTER → 2019-12-31 | Outpatient (CLI) | payer MEDICARE ==
--- NOTE | 2019-12-31 14:14 | Diagnostic Imaging Report ---
Examination: MRI BRAIN WO CONTRAST History: Stuttering. Speech disturbance. Comparison studies: Head CT performed October 05, 2019. Technique: Sagittal T2; axial DWI, FLAIR, GRE or SWI, T1, Coronal FLAIR. Intravenous contrast: None Findings: Scalp: No abnormal signal. No masses. Bone marrow: Normal in signal intensity. Brain volume: Mild volume loss. Ventricles: No hydrocephalus. Extra-axial spaces: No abnormalities. Parenchyma: There are a few scattered patchy areas of T2/FLAIR hyperintensity in the periventricular and subcortical white matter, nonspecific. Two foci of chronic microhemorrhage are identified in the right medial thalamus and left medial temporal lobe, which could be related to patient's hypertension. No masses, hemorrhage, or acute vascular insults. Suprasellar and sellar region: No abnormalities. Craniocervical junction: No abnormalities. The foramen magnum is patent. No Chiari malformations. Vessels: Normal flow-voids in the arteries and sinuses. IMPRESSION: No acute intracranial abnormalities. No change from prior head CT performed October 05, 2019 and when accounting for differences in imaging technique. Unchanged mild chronic microvascular ischemic change and volume loss. Signed by: Dr. Janice Delaney M.D. on 12/31/2019 2:12 PM
== END ==
LOC: MRI 10:51
PROVIDERS: ATTEND Psychiatry & Neurology Clinical Neurophysiology
DX: R47.89 Other speech disturbances (principal)
CPT/HCPCS: 70551

== ENCOUNTER 2020-01-20 11:47 | Emergency (ER) | payer MEDICARE ==
[~2020-01-20] VITALS: Ht 190.5 cm; Wt 121.6 kg
--- OUTSIDE RECORDS SUMMARY | 2020-01-20 11:53 | XMS REPORT | Summary of Care ---
Author Author JIHAN Landry, KARLA Organization Unknown Address Unknown Phone Unavailable Care Team Providers Care Line Puller Name Role Phone MARYCHUY NICHOLAS M.D. Unavailable Unavailable JIHAN Landry, KARLA Unavailable Unavailable ETHEL LEMONS, ZACARIAS Quinonez Unavailable Unavailable MICHAEL HAMMER MD, BEV Hugo Unavailable Unavailable TIARRA MELENDREZ MD, LEONARDO Lundberg Unavailable Unavailable JIHAN LEMONS, KARLA W Unavailable Unavailable Unavailable Unavailable Functional Status Name Dates Details Functional status health issues are not documented Status: Name Dates Details Cognitive status health issues are not documented Status: Problems Name Dates Details Acute Osteomyelitis Of The Right Lower Leg (730.06) Status: Active Osteomyelitis (730.20, M86.9) Status: Active Closed fracture of head of right femur, initial encounter (820.09, S72.051A) Status: Active Closed nondisplaced bimalleolar fracture with nonunion (733.82, S82.846K) Status: Active Closed fracture of acetabulum, right, initial encounter Status: Active Closed fracture of tibial plateau (823.00, S82.143A) Status: Active Open displaced fracture of proximal phalanx of right ring finger, sequela (905.2, S62.614S) Status: Active Open displaced fracture of proximal phalanx of right little finger, sequela (905.2, S62.616S) Status: Active Medications Name Dates Details Omeprazole 40 MG Oral Capsule Delayed Release Take two capsules once a day * Start : 27-Sep-2010 Active [place] 10-325 MG Oral Tablet TAKE 1-2 TABLETS EVERY 4-6 HOURS NEEDED FOR PAIN * Refills: 0 * Start : 27-Sep-2010 Active Sulfamethoxazole-TMP DS 800-160 MG TABS TAKE 2 TABLET TWICE DAILY * Quantity: 60 Refills: 1 MARYCHUY NICHOLAS M.D. * Start : 27-Sep-2010 Active Amoxicillin 500 MG Oral Tablet TAKE 2 TABLET TWICE DAILY * Quantity: 60 Refills: 1 MARYCHUY NICHOLAS M.D. * Start : 27-Sep-2010 Active Requip 0.5 MG TABS TAKE one tablet at bedtime * Refills: 0 * Start : 24-Jan-2011 Active Cymbalta CPEP * Refills: 0 Active Furosemide TABS * Refills: 0 Active Metoprolol Succinate ER TB24 * Refills: 0 Active Omeprazole TBDD * Refills: 0 Active Breo Ellipta 200-25 MCG/INH Inhalation Aerosol Powder Breath Activated * Refills: 0 Active traMADol HCl TABS * Refills: 0 Active Atorvastatin Calcium TABS * Refills: 0 Active Gabapentin CAPS * Refills: 0 Active Nortriptyline HCl - 75 MG Oral Capsule * Refills: 0 Active Glimepiride TABS * Refills: 0 Active metFORMIN HCl TABS * Refills: 0 Active Aspirin TABS * Refills: 0 Active aMILoride HCl TABS * Refills: 0 Active Allergies and Adverse Reactions Name Dates Details Flexeril TABS (Allergy) Status: Active Shellfish-derived Products (Allergy) Status: Active Past Medical History Name Dates Details History of bronchitis (V12.69, Z87.09) Status: Resolved History of High blood pressure (401.9, I10) Status: Resolved Procedures Procedure Dates Details History of Cholecystectomy Completed History of Hand Surgery Completed History of Back Surgery Completed History of Hip Surgery Completed Immunization Name Dates Details Immunizations not documented Social History Name Dates Details - Status: Name Dates Details Smokes tobacco daily (finding) Vital Signs Date Test Result Details :13 Body height 75 in Status: Weight 268 lb Status: Body mass index (BMI) [Ratio] 33.5 kg/m2 Status: Body surface area Derived from formula 2.49 m2 Status: Results Date Description Value Details :22 [U] XRAY HAND MIN 3 VWS RIGHT 34370 XR HAND MIN 3 VWS RIGHT Images acquired, not reported on this accession number. Plan of Care Name Dates Details Planned Observations Planned Goals not documented Interventions Provided Labs/Procedures/Imaging* [U] XRAY HAND MIN 3 VWS RIGHT 73006; Done: 09 Jan 2020 Plan* Patient Education/Instructions: * X-ray images/reports were reviewed. Findings were discussed in detail. * Work status:. * Significant time was spent educating and counseling the patient. * Follow Up: * Please schedule an appointment as needed for any future problems or concerns. * Seen today at the request of his insurance carrier. He is now 5 weeks out from his injury and healing well. Overall, he is comfortable and he feels ready for driving and full duty work. He is still healing and has some diffuse swelling and stiffness that will hopefully improve further in time. He is comfortable with a HEP and he has reached MMR. If something would change, I would be happy to see him. He stated he does not want to go to hand therapy but to do this on his own. Instructions Name Dates Details Instructions not documented Encounters Appointment; LEONARDO MAYEN Encounter Diagnosis: Problem not documented On: 14-Mar-2019 14:45 Appointment; KARLA BOBO M.D. Encounter Diagnosis: Problem not documented On: 09-Jan-2020 8:00
--- OUTSIDE RECORDS SUMMARY | 2020-01-20 11:53 | XMS REPORT | Summary of Care ---
Author Author Roberto Carlos Swenson, Jennie Parra Unknown Address Unknown Phone Unavailable Care Team Providers Care Convenience Store Manager Name Role Phone MARYCHUY NICHOLAS M.D. Unavailable Magaly BOBO M.D., KARLA Unavailable Unavailable MICHAEL HAMMER MD, BEV Hugo [...] of tibial plateau (823.00, S82.143A) Status: Active Medications Name Dates Details Omeprazole 40 MG Oral Capsule Delayed Release Take two capsules once a day * Start : 27-Sep-2010 Active [place] 10-325 MG Oral Tablet TAKE 1-2 TABLETS [...] I10) Status: Resolved Procedures Procedure Dates Details [U] XRAY HAND MIN 3 VWS RIGHT [id number] Date: 09-Jan-2020 History of Cholecystectomy Completed History of Hand Surgery Completed History of Back Surgery Completed History of Hip Surgery Completed Immunization Name Dates Details Immunizations not documented Social History Name Dates Details - Status: Name Dates Details Smokes tobacco daily (finding) Vital Signs Date Test Result Details [id number] Body height 75 in Status: Weight 268 lb Status: Body mass index (BMI) [Ratio] 33.5 kg/m2 Status: Body surface area Derived from formula 2.49 m2 Status: Results Date Description Value Details Results not documented Plan of Care Name Dates Details Planned Observations Planned Goals not documented Interventions Provided Labs/Procedures/Imaging* [U] XRAY HAND MIN 3 VWS RIGHT [id number]; To Be Done: 09 Jan 2020 Instructions Name Dates Details Instructions not documented Encounters Appointment; LEONARDO MAYEN Encounter Diagnosis: Problem not documented On: 14-Mar-2019 14:45 Appointment; KARLA BOBO M.D. Encounter Diagnosis: Problem not documented On: 09-Jan-2020 8:00
--- OUTSIDE RECORDS SUMMARY | 2020-01-20 11:53 | XMS REPORT | Summary of Care ---
Author Author JIHAN Landry, KARLA Organization Unknown Address Unknown Phone Unavailable Care Team Providers Care Renewals Specialist Name Role Phone MARYCHUY NICHOLAS M.D. Unavailable Unavailable JIHAN Landry, KARLA Unavailable Unavailable MICHAEL HAMMER MD, BEV [...] a day * Start : 27-Sep-2010 Active [place] 10-325 MG Oral Tablet TAKE 1-2 TABLETS [...] [U] XRAY HAND MIN 3 VWS RIGHT [id number] Date: 09-Jan-2020 History of Cholecystectomy Completed History of Hand Surgery Completed History of Back Surgery Completed History of Hip Surgery Completed Immunization Name Dates Details Immunizations not documented Social History Name Dates Details - Status: Name Dates Details Smokes tobacco daily (finding) Vital Signs Date Test Result Details [id number] Body height 75 in Status: Weight 268 lb Status: Body mass index (BMI) [Ratio] 33.5 kg/m2 Status: Body surface area Derived from formula 2.49 m2 Status: Results Date Description Value Details Results not documented Plan of Care Name Dates Details Planned Observations Planned Goals not documented Interventions Provided Labs/Procedures/Imaging* [U] XRAY HAND MIN 3 VWS RIGHT [id number]; To Be Done: 09 Jan 2020 Instructions Name Dates Details Instructions not documented Encounters Appointment; LEONARDO MAYEN Encounter Diagnosis: Problem not documented On: 14-Mar-2019 14:45 Appointment; KARLA BOBO M.D. Encounter Diagnosis: Problem not documented On: 09-Jan-2020 8:00
[2020-01-20] MEDS ORDERED: LIDOCAINE HCL 1% 2 ML AMP INJ ONE (12:15)
== END 2020-01-20 13:11 | disposition home or self-care (01) ==
LOC: ER 11:47
DX: S51.012A Laceration without foreign body of left elbow, initial encounter (principal); S40.812A Abrasion of left upper arm, initial encounter; S50.812A Abrasion of left forearm, initial encounter; S80.212A Abrasion, left knee, initial encounter; W01.0XXA Fall on same level from slipping, tripping and stumbling without subsequent striking against object, initial encounter; Y92.008 Other place in unspecified non-institutional (private) residence as the place of occurrence of the external cause; I10 Essential (primary) hypertension; E11.9 Type 2 diabetes mellitus without complications; J44.9 Chronic obstructive pulmonary disease, unspecified; I48.91 Unspecified atrial fibrillation; Z95.1 Presence of aortocoronary bypass graft
CPT/HCPCS: 99284

== ENCOUNTER → 2020-01-29 | Outpatient (CLI) | payer MEDICARE ==
--- NOTE | 2020-01-29 13:55 | Diagnostic Imaging Report ---
EXAMINATION: HAND 3+ VIEWS RIGHT INDICATION: Hand pain COMPARISON: None FINDINGS: Acute mildly displaced comminuted fracture of the base of the third proximal phalanx with intra-articular extension of fracture line. Minimally displaced acute fracture with mild impaction also involves the base of fifth proximal phalanx. Overlying soft tissue swelling. IMPRESSION: Acute fractures of the bases of the fourth and fifth proximal phalanges as above. Signed by: Mary Guardado MD on 01/29/2020 1:51 PM
== END ==
LOC: RAD 11:37
PROVIDERS: ATTEND Family Medicine
DX: M79.641 Pain in right hand (principal)

== ENCOUNTER → 2020-02-25 | Outpatient (CLI) | payer MEDICARE ==
[~2020-02-25] MED LIST changes: +AMLODIPINE BESYL5 MG PO; +GLIMEPIRIDE2 MG PO; +LOSARTAN POTASS25 MG PO; +METFORMIN HCL500 MG PO; +NORTRIPTYLINE H50 MG PO
--- NOTE | 2020-02-25 12:01 | Diagnostic Imaging Report ---
History: Lumbar radiculopathy, right hip and leg pain Comparison studies: CTA abdomen 01/17/2018 Technique: Sagittal, coronal and axial T2 , sagittal T1 and IR, axial spin density oblique. Intravenous contrast: None Findings: Number of lumbar vertebral bodies:5 Alignment: Normal lordosis.No scoliosis. Soft tissues: No paraspinal T2 hyperintense inflammatory changes. Fusiform dilation of the infrarenal abdominal aorta measuring up to 3 cm in AP dimension, consistent with stable small aneurysm. Paraspinal muscles: No signal abnormalities. No atrophy. Lower thoracic cord:Normal in signal and posterior position. The tip of the conus is at T12-L1. Cauda equina: No masses. No arachnoiditis. Surgical changes: Posterior fusion with bilateral transpedicular screws at T12 and L2 and interlocking rods. No evidence of complication Vertebrae: No acute compression fracture. Chronic wedge compression deformity at T11 vertebral body. Mild central volume loss at L1 vertebral body with nonspecific central T1-T2 hypointensity. No compression fractures, infection or neoplasm. Degenerative changes: Patent canal and the lower thoracic level and thoracolumbar junction. L1-L2: Patent canal and foramina. L2-L3: Is degeneration with loss of T2 signal. Asymmetric left disc bulge and mild facet hypertrophy results in moderate canal stenosis, narrowing of the left subarticular recess and mild bilateral foraminal narrowing. L3-L4: Disc degeneration with loss of T2 signal. Asymmetric right disc bulge, mild facet hypertrophy and ligamentum flavum thickening results in moderate canal stenosis, narrowing of the right subarticular recesses and mild narrowing of the bilateral foramina. L4-L5: Disc degeneration with loss of T2 signal. Diffuse disc bulge and mild facet hypertrophy results in mild canal stenosis and mild bilateral foraminal narrowing. Irregularity right lamina and nonvisualization of the ligamentum flavum, could related to previous intervention. L5-S1: Disc degeneration with loss of T2 signal and decreased intervertebral space. Diffuse disc bulge with superimposed left central disc extrusion results in moderate canal stenosis, narrowing of the left subarticular recess, moderate right and mild left foraminal narrowing. Additional findings: Exophytic T2 hypointense lesion at the left kidney lower pole measuring approximately 2 cm in greatest dimension, stable from previous abdominal CT IMPRESSION: Posterior fusion at the thoracolumbar junction without evidence of complication. Moderate degenerative canal stenosis at L2-L3, L3-L4 and L5-S1. Moderate right degenerative foraminal narrowing at L5-S1. Left central disc extrusion at L5-S1 contributes to the canal stenosis. Multilevel mild canal stenosis and foraminal narrowing as described above. Mild disc degeneration with minimal edema signal at L5 and S1 superior endplates. Mild chronic compression deformities at T11 and L1 bodies. Signed by: DR Viraj Bailey M.D. on 02/25/2020 11:58 AM
== END ==
LOC: MRI 09:45
PROVIDERS: ATTEND Family Medicine
DX: M54.16 Radiculopathy, lumbar region (principal)
CPT/HCPCS: 72148

== ENCOUNTER → 2020-03-16 | Day surgery (SDC) | payer MEDICARE, OTHER ==
[2020-03-12 14:05] LABS: BASOPHILS % 0.3 % (0.0-1.0); EOSINOPHILS # (AUTO) 0.3 (0.0-0.4); HEMATOCRIT 40.3 % (38.2-49.6); LYMPHOCYTES # (AUTO) 1.3 (1.0-3.2); LYMPHOCYTES % 16.8 % (18.0-39.1); MEAN CORPUSCULAR HEMOGLOBIN 29.1 pg (28-32); MEAN CORPUSCULAR HGB CONC 32.3 g/dL (31-35); MEAN CORPUSCULAR VOLUME 90.4 fL (81-99); MONOCYTES # (AUTO) 0.7 (0.2-0.8); MONOCYTES % 9.4 % (4.4-11.3); NEUTROPHILS # (AUTO) 5.3 (2.1-6.9); NEUTROPHILS % 68.9 % (38.7-80.0); PLATELET COUNT 197 x10e3/uL (140-360); RED BLOOD COUNT 4.46 x10e6/uL (4.3-5.7); RED CELL DISTRIBUTION WIDTH 14.6 % (11.7-14.4)
[2020-03-12 14:22] LABS: ANION GAP 15.3 mmol/L (8-16); CALCIUM 9.1 mg/dL (8.4-10.2); CREATININE, SERUM 1.25 mg/dL (0.72-1.25); POTASSIUM 4.3 mmol/L (3.5-5.1)
--- NOTE | 2020-03-12 14:43 | Diagnostic Imaging Report ---
X-ray chest PA and lateral Comparison: None History: Right hip procedure Findings: Both frontal and lateral views submitted on 2 images each. Status post median sternotomy and CABG. Heart size normal limits. Atherosclerotic aorta. No other significant mediastinal abnormality. No pleural effusion. No pneumothorax. Faint solitary pulmonary nodule measuring approximately 10 mm in the right upper lung zone overlying the right anterior first rib. Lung johansen otherwise unremarkable. Lungs are hyperinflated with low flat diaphragms suggestive of emphysema. Thoracolumbar orthopedic hardware likely posterior spinal fusion. No other significant acute abnormality. Impression: No acute cardiopulmonary disease. Possible emphysema. The right lung solitary pulmonary nodule should be compared with previous x-rays or other imaging studies. If they are not available, CT of the chest should be considered. Signed by: Joon Euceda MD on 03/12/2020 2:39 PM
[~2020-03-16] MED LIST changes: +BUPIVACAINE HCL 0.5% 10ML MPF VIAL INJ ONE; +FENTANYL CITRATE/PF 100MCG/2 ML INJ ONE; +INSULIN REGULAR, HUMAN 100 UNIT/1 ML 3ML VIAL ONE; +IOPAMIDOL 200 MG/ML 20 ML VIAL IT ONE; +LIDOCAINE HCL 1% LOCAL INJ 20 ML VIAL ONE; +LIDOCAINE HCL 2% LOCAL INJ 5 ML SDV VIAL INJ ONE; +MIDAZOLAM HCL 2 MG/2 ML VIAL ONE; +PROPOFOL IV EMULSION 10 MG/ML 20 ML VIAL ONE; +TRIAMCINOLONE ACET 40 MG/ML VIAL ONE
[2020-03-16 09:45] VITALS: BP 129/67
--- NOTE | 2020-03-16 10:05 | Operative Report ---
DATE OF PROCEDURE: 03/16/2020 SURGEON: Maikel Pena MD PREOPERATIVE DIAGNOSIS: Osteoarthritis, right hip. POSTOPERATIVE DIAGNOSIS: Osteoarthritis, right hip. PROCEDURE: Right hip fluoroscopic-guided corticosteroid injection. INDICATIONS: The patient is a 64-year-old gentleman, with multiple issues involving his right lower extremity. He has had an instrumented lumbar fusion. He has had a posterior wall acetabular fracture. He has longstanding apparent chronic osteomyelitis of his right lower extremity. He complains of severe pain in his right groin. He is currently not a surgical candidate for a right hip replacement. We plan on a right hip corticosteroid injection using fluoroscopy. The risks and benefits were explained. All of his questions were answered. He stated he understood and wished to proceed. PROCEDURE IN DETAIL: The patient was brought to the operating room. He was given some IV anesthesia. His right hip was prepped and draped in a sterile manner. A preoperative time-out was performed. A C-arm image intensifier was brought in. This was used to assist in localizing a spinal needle in the inferior recess of the hip joint. A small amount of radiopaque dye was injected to confirm position. Once this was confirmed, a mixture of 9 mL of 0.5% Marcaine and 40 mg of Solu-Medrol was injected into the joint. The needle was retrieved and a Band-Aid was applied. He was transported to the step-down unit in good condition. Maikel Pena MD DR/JOANNE /[id number]
== END | disposition home or self-care (01) ==
LOC: OR 08:15
PROVIDERS: ATTEND Specialist
DX: M16.51 Unilateral post-traumatic osteoarthritis, right hip (principal); M86.661 Other chronic osteomyelitis, right tibia and fibula; M43.26 Fusion of spine, lumbar region; J44.9 Chronic obstructive pulmonary disease, unspecified; I25.810 Atherosclerosis of coronary artery bypass graft(s) without angina pectoris; E11.9 Type 2 diabetes mellitus without complications; K21.9 Gastro-esophageal reflux disease without esophagitis; E66.01 Morbid (severe) obesity due to excess calories; F17.210 Nicotine dependence, cigarettes, uncomplicated; Z88.1 Allergy status to other antibiotic agents; Z01.810 Encounter for preprocedural cardiovascular examination; Z01.812 Encounter for preprocedural laboratory examination; Z01.818 Encounter for other preprocedural examination; Z11.59 Encounter for screening for other viral diseases; Z79.82 Long term (current) use of aspirin; Z79.84 Long term (current) use of oral hypoglycemic drugs; Z68.33 Body mass index [BMI] 33.0-33.9, adult; Z95.1 Presence of aortocoronary bypass graft
CPT/HCPCS: 20610; 36415 ×2; 71046; 77002; 80048; 82948; 85025; 87635; 93005; J2001; J2250; J2704; J3010; J3301; Q9967; 76000; J1817

== ENCOUNTER → 2020-08-20 | Day surgery (SDC) | payer MEDICARE, OTHER ==
[2020-08-17 10:56] LABS: BASOPHILS % 0.2 % (0.0-1.0); EOSINOPHILS # (AUTO) 0.3 (0.0-0.4); EOSINOPHILS % 2.3 % (0.0-6.0); HEMOGLOBIN 13.5 g/dL (14.0-18.0); LYMPHOCYTES # (AUTO) 1.8 (1.0-3.2); LYMPHOCYTES % 14.8 % (18.0-39.1); MEAN CORPUSCULAR HEMOGLOBIN 29.5 pg (28-32); MEAN CORPUSCULAR HGB CONC 31.4 g/dL (31-35); MEAN CORPUSCULAR VOLUME 93.9 fL (81-99); MONOCYTES # (AUTO) 1.2 (0.2-0.8); MONOCYTES % 9.7 % (4.4-11.3); NEUTROPHILS # (AUTO) 8.6 (2.1-6.9); NEUTROPHILS % 72.4 % (38.7-80.0); PLATELET COUNT 169 x10e3/uL (140-360); RED BLOOD COUNT 4.58 x10e6/uL (4.3-5.7); RED CELL DISTRIBUTION WIDTH 14.6 % (11.7-14.4)
[2020-08-17 11:12] LABS: INR 0.9; PARTIAL THROMBOPLASTIN TIME 31.6 seconds (23.8-35.5); PROTHROMBIN TIME 12.6 seconds (11.9-14.5)
[2020-08-17 11:19] LABS: ALBUMIN 3.7 g/dL (3.5-5.0); ANION GAP 12.6 mmol/L (8-16); CALCIUM 9.5 mg/dL (8.4-10.2); CHOL/HDL RATIO 3.9 (3.9-4.7); CREATININE, SERUM 1.5 mg/dL (0.72-1.25); POTASSIUM 4.6 mmol/L (3.5-5.1)
[2020-08-20] VITALS (13 sets, daily range): BP systolic 103–150; BP diastolic 63–90
[~2020-08-20] VITALS: Ht 193 cm; Wt 123.4 kg
[~2020-08-20] MED LIST changes: +ASPIRIN325 MG PO; -BUPIVACAINE HCL 0.5% 10ML MPF VIAL INJ ONE; +HEPARIN SOD/SOD CHLORIDE 2,000 ML ONE; -INSULIN REGULAR, HUMAN 100 UNIT/1 ML 3ML VIAL ONE; -IOPAMIDOL 200 MG/ML 20 ML VIAL IT ONE; +IOPAMIDOL 300MG/ML 100 ML INFUS..BTL IV ONE; +IOPAMIDOL 370 MG/ML 200 ML INFUS..BTL INJ ONE; -LIDOCAINE HCL 1% LOCAL INJ 20 ML VIAL ONE; +LIDOCAINE HCL 2% LOCAL 20 ML VIAL ONE; -LIDOCAINE HCL 2% LOCAL INJ 5 ML SDV VIAL INJ ONE; -PROPOFOL IV EMULSION 10 MG/ML 20 ML VIAL ONE; +SODIUM CHLORIDE 0.9% 1000ML 1,000 ML ONE; +SYMBICORT 16010.2 GM INH; -TRIAMCINOLONE ACET 40 MG/ML VIAL ONE
--- NOTE | 2020-08-20 10:30 | NUR ---
1030a POST PROCEDURAL NURSING NOTE: pt in rm #10. Identifierx2, prepped for procedure. Alert oriented and appropriate, PERRLA, respirations even and unlabored to room air. Pulses x4 extremities equal and strong Dp/PT. Pedal pulses PT/DP weak Cap fill brisk < 3 sec. bilateral feet warm Left 5fr sheah in place no gross issues pain,pallor pressure or dysrhythmia. Skin warm and dry integrity appears intact in general. IV to left hand at 100cchr via iv controllerno s/s infiltration.or complaint. NS 0.9% started at 100ml/hr .Abdomen soft and supple. pt offered toileting, denies need to urinate or defecate. Personal affects with patient. Family at bedside. Pt and family verbalizes understanding of POC. Ramon Loja at bedside for sheath pull Ingris Rn at standby, Pull initiated at 1041am, No s/s distress vs astable PP present and palpable. in waiting. Dr Claros spoke with family regarding POC. ds/rn
--- NOTE | 2020-08-20 11:00 | NUR ---
11a sheath pull completed with dressing dry and intact PPx4 palpable tolerated well. Yeyo Loja applied pressure 18minutes , No active CP or SOB family called back to bedside. Down time till 3pm. ds/rn 1041a 137/69 MO 67 R-13 92% sat RA PPx4 present 1045a 135/77 [place] [address] R-12 94%sat RA PPx4 present 1050 127/78 MO 63 R12 92% sat RA PPx4 Present 1055 124/77 MO 63 R-90% sat RA PPx4 present 1100a stasis achieved dressing applied Pulses present x4 DP/PT No gross issues pain pallor pressure or dysrhythmia, Dc time 3pm ds;/rn
--- NOTE | 2020-08-20 13:42 | Operative Report ---
DATE OF PROCEDURE: 08/20/2020 SURGEON: Reece Zamora MD PROCEDURE INDICATION: Foot toe ulceration in patient with peripheral vascular disease, abnormal Doppler concerning for anterior tibial occlusion/stenosis. PROCEDURES PERFORMED: 1. Abdominal aortogram. 2. Selective lower extremity angiography, unilateral. 3. Ultrasound-guided access to the left common femoral artery. 4. Mild pressure hemostasis at the end of this procedure. 5. Catheter placement in the aorta. 6. Third order catheter placement from left femoral artery to right femoral artery. PROCEDURE COMPLICATIONS: None. ESTIMATED BLOOD LOSS: Less than 50 mL. PROCEDURE SUMMARY: After consent was obtained, the patient was prepped and draped in a sterile fashion. The left femoral site was locally infiltrated with 2% lidocaine and access was obtained with micropuncture kit and ultrasound guidance. A 5-Colombian sheath was advanced to the left common femoral artery and an Omni Flush catheter was positioned infrarenal aorta. Digital subtraction angiography reveals 30% ostial stenosis of the left renal artery, patent right renal artery. The infrarenal aorta has a small sized infrarenal aortic aneurysm. The right common iliac artery has 40% stenosis. Left common iliac artery has 40% stenosis. Internal and external iliac arteries are patent. Common femoral arteries are patent. The right lower extremity was further visualized after catheter advancement to the right femoral artery position. The right common femoral artery is patent, profunda femoris patent. Femoral and popliteal right arteries are patent. There is a patent anterior tibial TP trunk peroneal and posterior tibial arteries three-vessel runoff to foot. However, at the foot level the digital arteries and capillary density seems decreased with decreased blushing most consistent with small vessel/outflow disease. Recommend medical management. Reece Zamora MD AFV/MODL /[id number]
--- NOTE | 2020-08-20 15:00 | NUR ---
1500p meets discharge criteria. VS wnl, alert and oriented. Pt and Family Understands discharge instruction. Overall general assess w/o gross outliers. Skin warm, dry, and intact. Right groin dressing soft w/o s/s of hematoma. Pedal pulses unchanged. IV removed and appears distal tip is intact. Pt maintains mask on for COVID 19 precautions being taken by wheel chair to awaiting car. Transfers w/o gross distress with discharge paperwork in hand. ds/rn
== END | disposition home or self-care (01) ==
LOC: CATH LAB 07:39
PROVIDERS: ATTEND Internal Medicine Cardiovascular Disease
DX: I70.25 Atherosclerosis of native arteries of other extremities with ulceration (principal); I72.2 Aneurysm of renal artery; I25.83 Coronary atherosclerosis due to lipid rich plaque; I48.20 Chronic atrial fibrillation, unspecified; I11.0 Hypertensive heart disease with heart failure; I50.32 Chronic diastolic (congestive) heart failure; I65.29 Occlusion and stenosis of unspecified carotid artery; J44.9 Chronic obstructive pulmonary disease, unspecified; D50.9 Iron deficiency anemia, unspecified; K92.2 Gastrointestinal hemorrhage, unspecified; F17.210 Nicotine dependence, cigarettes, uncomplicated; Z88.8 Allergy status to other drugs, medicaments and biological substances; Z01.812 Encounter for preprocedural laboratory examination; Z11.59 Encounter for screening for other viral diseases; Z79.84 Long term (current) use of oral hypoglycemic drugs; Z79.02 Long term (current) use of antithrombotics/antiplatelets; Z79.82 Long term (current) use of aspirin; Z68.34 Body mass index [BMI] 34.0-34.9, adult; Z82.49 Family history of ischemic heart disease and other diseases of the circulatory system; Z82.3 Family history of stroke
CPT/HCPCS: 36247; 36415; 75625; 75710; 76937 ×2; 80053; 80061; 85025; 85610; 85730; C1769 ×2; J2001; J2250; J3010; J7030; Q9967; U0002; 99152; 99153

== ENCOUNTER → 2020-10-28 | Outpatient (CLI) | payer MEDICARE ==
[~2020-10-28] MED LIST changes: -FENTANYL CITRATE/PF 100MCG/2 ML INJ ONE; -HEPARIN SOD/SOD CHLORIDE 2,000 ML ONE; -IOPAMIDOL 300MG/ML 100 ML INFUS..BTL IV ONE; -IOPAMIDOL 370 MG/ML 200 ML INFUS..BTL INJ ONE; -LIDOCAINE HCL 2% LOCAL 20 ML VIAL ONE; -MIDAZOLAM HCL 2 MG/2 ML VIAL ONE; -SODIUM CHLORIDE 0.9% 1000ML 1,000 ML ONE
== END ==
LOC: MRI 12:25
PROVIDERS: ATTEND Family Medicine
DX: M54.12 Radiculopathy, cervical region (principal)
CPT/HCPCS: 72141

== ENCOUNTER → 2021-03-02 | Outpatient (CLI) | payer MEDICARE | LOC: MRI 12:48 | PROVIDERS: ATTEND Family Medicine | DX: L03.116 Cellulitis of left lower limb (principal) ==

== ENCOUNTER → 2021-03-15 | Day surgery (SDC) | payer MEDICARE ==
[2021-03-10 11:49] LABS: BASOPHILS % 0.4 % (0.0-1.0); EOSINOPHILS # (AUTO) 0.4 (0.0-0.4); EOSINOPHILS % 5.3 % (0.0-6.0); HEMATOCRIT 33.5 % (38.2-49.6); HEMOGLOBIN 9.7 g/dL (14.0-18.0); LYMPHOCYTES # (AUTO) 0.9 (1.0-3.2); LYMPHOCYTES % 11.1 % (18.0-39.1); MEAN CORPUSCULAR HEMOGLOBIN 22.7 pg (28-32); MEAN CORPUSCULAR VOLUME 78.3 fL (81-99); MONOCYTES # (AUTO) 0.9 (0.2-0.8); MONOCYTES % 10.6 % (4.4-11.3); NEUTROPHILS # (AUTO) 5.8 (2.1-6.9); NEUTROPHILS % 72.1 % (38.7-80.0); PLATELET COUNT 204 x10e3/uL (140-360); RED BLOOD COUNT 4.28 x10e6/uL (4.3-5.7)
[2021-03-10 12:05] LABS: INR 0.93; PARTIAL THROMBOPLASTIN TIME 32.7 seconds (23.8-35.5); PROTHROMBIN TIME 13.1 seconds (11.9-14.5)
[2021-03-10 12:06] LABS: POTASSIUM 3.6 mmol/L (3.5-5.1)
[2021-03-10 12:07] LABS: ALBUMIN 3.4 g/dL (3.5-5.0); ALBUMIN/GLOBULIN RATIO 0.9 (0.8-2.0); ANION GAP 16.6 mmol/L (8-16); CALCIUM 8.3 mg/dL (8.4-10.2); CHOL/HDL RATIO 5.3 (3.9-4.7); CREATININE, SERUM 1.54 mg/dL (0.72-1.25)
[2021-03-15] VITALS (9 sets, daily range): BP systolic 98–139; BP diastolic 58–86
[~2021-03-15] VITALS: Ht 190.5 cm; Wt 115.7 kg
[~2021-03-15] MED LIST changes: +ARICEPT10 MG PO; +ASPIRIN 325 MG TAB ONE; +BREZTRI AEROS10.7 GM INH; +FENTANYL CITRATE/PF 100MCG/2 ML INJ ONE; +HEPARIN SOD (PORCINE) 1000 UNIT/ML 30ML ONE; +HEPARIN SOD/SOD CHLORIDE 1,000 ML ONE; +IOPAMIDOL 300MG/ML 100 ML INFUS..BTL IV ONE; +KEFLEX125 MG/5 M PO; +LIDOCAINE HCL 2% LOCAL 20 ML VIAL ONE; +MIDAZOLAM HCL 2 MG/2 ML VIAL ONE; +NITROGLYCERIN/D5W 200 MCG/ML 250 ML ONE; +PRAMIPEXOLE DIHY1 MG PO; +SODIUM CHLORIDE 0.9% 1000ML 1,000 ML ONE
== END | disposition home or self-care (01) ==
LOC: CATH LAB 06:39
PROVIDERS: ATTEND Internal Medicine Cardiovascular Disease
DX: I70.245 Atherosclerosis of native arteries of left leg with ulceration of other part of foot (principal); L97.529 Non-pressure chronic ulcer of other part of left foot with unspecified severity; Z01.812 Encounter for preprocedural laboratory examination; Z20.822 Contact with and (suspected) exposure to COVID-19
CPT/HCPCS: 36247; 36415; 75625; 80053; 80061; 85025; 85610; 85730; C1760; C1769; C1894; J1644; J2001; J2250; J3010; J7030; Q9967; U0002; 75716; 99152

== ENCOUNTER → 2021-04-01 | Outpatient (CLI) | payer MEDICARE ==
[~2021-04-01] MED LIST changes: -ASPIRIN 325 MG TAB ONE; -FENTANYL CITRATE/PF 100MCG/2 ML INJ ONE; -HEPARIN SOD (PORCINE) 1000 UNIT/ML 30ML ONE; -HEPARIN SOD/SOD CHLORIDE 1,000 ML ONE; -IOPAMIDOL 300MG/ML 100 ML INFUS..BTL IV ONE; -LIDOCAINE HCL 2% LOCAL 20 ML VIAL ONE; -MIDAZOLAM HCL 2 MG/2 ML VIAL ONE; -NITROGLYCERIN/D5W 200 MCG/ML 250 ML ONE; -SODIUM CHLORIDE 0.9% 1000ML 1,000 ML ONE
== END ==
LOC: RAD 10:11
PROVIDERS: ATTEND Family Medicine
DX: J81.0 Acute pulmonary edema (principal)
CPT/HCPCS: 93306

== ENCOUNTER → 2021-04-05 | Outpatient (CLI) | payer MEDICARE | LOC: CT 16:27 | PROVIDERS: ATTEND Family Medicine | DX: I50.21 Acute systolic (congestive) heart failure (principal) | CPT/HCPCS: 71250 ==

== ENCOUNTER → 2022-01-04 | Outpatient (CLI) | payer MEDICARE ==
[~2022-01-04] MED LIST changes: +IOPAMIDOL 370 MG/ML 200 ML INFUS..BTL INJ ONE; +SODIUM CHLORIDE 0.9% 100 ML ONE; +SODIUM CHLORIDE 0.9% 500ML 500 ML ONE; +SODIUM CHLORIDE 0.9% 50ML 0 ML ONE
[2022-01-04 08:43] LABS: CREATININE, SERUM 1.42 mg/dL (0.72-1.25)
== END ==
LOC: CT 07:44
PROVIDERS: ATTEND Internal Medicine Cardiovascular Disease
DX: I70.219 Atherosclerosis of native arteries of extremities with intermittent claudication, unspecified extremity (principal)
CPT/HCPCS: 36415; 74174; 82565; 84520; 96360; J7040; J7050; Q9967

== ENCOUNTER → 2022-09-23 | Outpatient (CLI) | payer MEDICARE ==
[~2022-09-23] MED LIST changes: -IOPAMIDOL 370 MG/ML 200 ML INFUS..BTL INJ ONE; -SODIUM CHLORIDE 0.9% 100 ML ONE; -SODIUM CHLORIDE 0.9% 500ML 500 ML ONE; -SODIUM CHLORIDE 0.9% 50ML 0 ML ONE
== END ==
LOC: MRI 07:41
PROVIDERS: ATTEND Family Medicine
DX: L03.012 Cellulitis of left finger (principal)

== ENCOUNTER → 2022-10-05 | Day surgery (SDC) | payer MEDICARE ==
[2022-09-30 16:11] LABS: BASOPHILS % 0.3 % (0.0-1.0); EOSINOPHILS # (AUTO) 0.5 (0.0-0.4); EOSINOPHILS % 4.8 % (0.0-6.0); HEMATOCRIT 41.1 % (38.2-49.6); LYMPHOCYTES # (AUTO) 1.9 (1.0-3.2); MEAN CORPUSCULAR HEMOGLOBIN 25.1 pg (28-32); MEAN CORPUSCULAR HGB CONC 29.2 g/dL (31-35); MEAN CORPUSCULAR VOLUME 85.8 fL (81-99); MONOCYTES # (AUTO) 1.2 (0.2-0.8); NEUTROPHILS % 62.6 % (38.7-80.0); PLATELET COUNT 280 x10e3/uL (140-360); RED BLOOD COUNT 4.79 x10e6/uL (4.3-5.7); RED CELL DISTRIBUTION WIDTH 15.3 % (11.7-14.4)
[2022-09-30 16:29] LABS: ALBUMIN 3.9 g/dL (3.5-5.0); ANION GAP 14.5 mmol/L (8-16); CREATININE, SERUM 1.26 mg/dL (0.72-1.25); POTASSIUM 4.5 mmol/L (3.5-5.1)
[~2022-10-05] MED LIST changes: +ACETAMINOPHEN 1000 MG/100 ML 100 ML IV ONE; +BUPIVACAINE 0.5%/EPI 30 ML SDV INJ ONE; +BUPIVACAINE HCL 0.5% INJ 30 ML VIAL INJ ONE; +CLEOCIN HCL300 MG PO; +DEXAMETHASONE SOD PHOS INJ 4 MG/ML SDV ONE; +EPHEDRINE SULFATE INJ 50 MG/ML VIAL ONE; +FENTANYL CITRATE/PF 100MCG/2 ML INJ ONE; +LIDOCAINE HCL 1% 30ML-PF VIAL ONE; +LIDOCAINE HCL 2% LOCAL INJ 5 ML SDV VIAL INJ ONE; +LYRICA75 MG PO; +METHOCARBAMOL750 MG PO; +MIDAZOLAM HCL 2 MG/2 ML VIAL ONE; +ONDANSETRON HCL INJ 2MG/ML 2ML 2 MG/ML VIAL ONE; +POTASSIUM CHLO20 ME1 PO; +POVIDONE IODINE 0.05% 0.05 % ML PO ONE; +PROPOFOL IV EMULSION 10 MG/ML 20 ML VIAL ONE; +QUETIAPINE FUMA25 MG PO; +ROPINIROLE PO; +SPIRONOLACTONE25 MG PO
[2022-10-05 14:10] VITALS: BP 117/61
== END | disposition home or self-care (01) ==
LOC: OR 10:57
PROVIDERS: ATTEND Surgery
DX: M86.9 Osteomyelitis, unspecified (principal); E11.9 Type 2 diabetes mellitus without complications; I10 Essential (primary) hypertension; J44.9 Chronic obstructive pulmonary disease, unspecified; I25.810 Atherosclerosis of coronary artery bypass graft(s) without angina pectoris; I71.40 Abdominal aortic aneurysm, without rupture, unspecified; Z88.8 Allergy status to other drugs, medicaments and biological substances; Z01.810 Encounter for preprocedural cardiovascular examination; Z01.812 Encounter for preprocedural laboratory examination; Z01.818 Encounter for other preprocedural examination; Z79.82 Long term (current) use of aspirin; Z79.84 Long term (current) use of oral hypoglycemic drugs; Z79.899 Other long term (current) drug therapy; Z95.1 Presence of aortocoronary bypass graft
CPT/HCPCS: 26951; 36415 ×2; 71046; 80053; 82948; 85025; 88304; 88311; 93005; J0131; J0690; J1100; J2001 ×2; J2405; J2704; J2250; J3010

== ENCOUNTER → 2023-04-18 | Outpatient (CLI) | payer MEDICARE ==
[~2023-04-18] MED LIST changes: -ACETAMINOPHEN 1000 MG/100 ML 100 ML IV ONE; -BUPIVACAINE 0.5%/EPI 30 ML SDV INJ ONE; -BUPIVACAINE HCL 0.5% INJ 30 ML VIAL INJ ONE; -DEXAMETHASONE SOD PHOS INJ 4 MG/ML SDV ONE; -EPHEDRINE SULFATE INJ 50 MG/ML VIAL ONE; -FENTANYL CITRATE/PF 100MCG/2 ML INJ ONE; -LIDOCAINE HCL 1% 30ML-PF VIAL ONE; -LIDOCAINE HCL 2% LOCAL INJ 5 ML SDV VIAL INJ ONE; -MIDAZOLAM HCL 2 MG/2 ML VIAL ONE; -ONDANSETRON HCL INJ 2MG/ML 2ML 2 MG/ML VIAL ONE; -POVIDONE IODINE 0.05% 0.05 % ML PO ONE; -PROPOFOL IV EMULSION 10 MG/ML 20 ML VIAL ONE
== END ==
LOC: MRI 09:33
PROVIDERS: ATTEND Family Medicine
DX: M51.17 Intervertebral disc disorders with radiculopathy, lumbosacral region (principal)
CPT/HCPCS: 72148

== ENCOUNTER → 2023-12-04 | Day surgery (SDC) | payer MEDICARE ==
[~2023-12-04] MED LIST changes: +ALBUTEROL/IPRATROPIUM 3 ML NEB ONE; +BUPIVACAINE HCL 0.5% INJ 30 ML VIAL INJ ONE; +DEXMEDETOMIDINE HCL 200 MCG/2 ML VIAL ONE; +IBUPROFEN200 MG PO; +IOPAMIDOL 200 MG/ML 20 ML VIAL IT ONE; +IOPAMIDOL 300MG/ML 100 ML INFUS..BTL IV ONE; +LACTATED RINGER'S 1,000 ML ONE; +LIDOCAINE HCL 2% LOCAL INJ 5 ML SDV VIAL INJ ONE; +MIDAZOLAM HCL 2 MG/2 ML VIAL ONE; +PROPOFOL IV EMULSION 10 MG/ML 20 ML VIAL ONE; +TRIAMCINOLONE ACET 40 MG/ML VIAL ONE
[2023-12-04 10:49] VITALS: PULSE 78; RESP 18; O2SAT 97
[2023-12-04 11:03] LABS: BASOPHILS % 0.3 % (0.0-1.0); EOSINOPHILS # (AUTO) 0.4 (0.0-0.4); EOSINOPHILS % 3.6 % (0.0-6.0); HEMATOCRIT 38.9 % (38.2-49.6); LYMPHOCYTES # (AUTO) 1.9 (1.0-3.2); LYMPHOCYTES % 16.9 % (18.0-39.1); MEAN CORPUSCULAR HEMOGLOBIN 26.2 pg (28-32); MEAN CORPUSCULAR HGB CONC 30.8 g/dL (31-35); MEAN CORPUSCULAR VOLUME 84.9 fL (81-99); MONOCYTES # (AUTO) 0.9 (0.2-0.8); MONOCYTES % 8.6 % (4.4-11.3); NEUTROPHILS # (AUTO) 7.7 (2.1-6.9); NEUTROPHILS % 70.1 % (38.7-80.0); PLATELET COUNT 231 x10e3/uL (140-360); RED BLOOD COUNT 4.58 x10e6/uL (4.3-5.7); RED CELL DISTRIBUTION WIDTH 15.1 % (11.7-14.4); WHITE BLOOD COUNT 10.98 x10e3/uL (4.8-10.8)
[2023-12-04 11:13] LABS: CALCIUM 9.4 mg/dL (8.4-10.2); CREATININE, SERUM 1.22 mg/dL (0.72-1.25)
[2023-12-04 12:28] VITALS: TEMP 97.3
[2023-12-04 12:40] VITALS: BP 135/67; PULSE 89; RESP 16; O2SAT 96
== END | disposition home or self-care (01) ==
LOC: OR 09:31
PROVIDERS: ATTEND Specialist
DX: M16.11 Unilateral primary osteoarthritis, right hip (principal); I25.810 Atherosclerosis of coronary artery bypass graft(s) without angina pectoris; E78.5 Hyperlipidemia, unspecified; I49.9 Cardiac arrhythmia, unspecified; E11.9 Type 2 diabetes mellitus without complications; D64.9 Anemia, unspecified; K21.9 Gastro-esophageal reflux disease without esophagitis; J44.9 Chronic obstructive pulmonary disease, unspecified; Z71.3 Dietary counseling and surveillance; Z71.82 Exercise counseling; F17.210 Nicotine dependence, cigarettes, uncomplicated; Z88.1 Allergy status to other antibiotic agents; Z88.8 Allergy status to other drugs, medicaments and biological substances; Z79.84 Long term (current) use of oral hypoglycemic drugs; Z79.82 Long term (current) use of aspirin; Z79.1 Long term (current) use of non-steroidal anti-inflammatories (NSAID); Z79.899 Other long term (current) drug therapy; Z68.30 Body mass index [BMI] 30.0-30.9, adult; Z95.1 Presence of aortocoronary bypass graft
CPT/HCPCS: 20610; 36415; 77002; 80048; 82948; 85025; 93005; 94799; J2001; J2250; J2704; J3301; J7121; Q9967

== ENCOUNTER 2024-12-28 15:17 | Emergency (ER) | payer MEDICARE ==
[~2024-12-28] VITALS: Ht 190.5 cm; Wt 105.7 kg
[~2024-12-28 15:17] MED LIST changes: -ALBUTEROL/IPRATROPIUM 3 ML NEB ONE; -BUPIVACAINE HCL 0.5% INJ 30 ML VIAL INJ ONE; -DEXMEDETOMIDINE HCL 200 MCG/2 ML VIAL ONE; -IOPAMIDOL 200 MG/ML 20 ML VIAL IT ONE; -IOPAMIDOL 300MG/ML 100 ML INFUS..BTL IV ONE; -LACTATED RINGER'S 1,000 ML ONE; -LIDOCAINE HCL 2% LOCAL INJ 5 ML SDV VIAL INJ ONE; -MIDAZOLAM HCL 2 MG/2 ML VIAL ONE; -PROPOFOL IV EMULSION 10 MG/ML 20 ML VIAL ONE; -TRIAMCINOLONE ACET 40 MG/ML VIAL ONE
[2024-12-28 16:04] LABS: BASOPHILS % 0.2 % (0.0-1.0); EOSINOPHILS # (AUTO) 0.2 (0.0-0.4); EOSINOPHILS % 2.5 % (0.0-6.0); HEMATOCRIT 36.2 % (38.2-49.6); HEMOGLOBIN 11.4 g/dL (14.0-18.0); LYMPHOCYTES # (AUTO) 1.5 (1.0-3.2); LYMPHOCYTES % 18.2 % (18.0-39.1); MEAN CORPUSCULAR HGB CONC 31.5 g/dL (31-35); MEAN CORPUSCULAR VOLUME 88.9 fL (81-99); MONOCYTES # (AUTO) 0.9 (0.2-0.8); MONOCYTES % 11.3 % (4.4-11.3); NEUTROPHILS # (AUTO) 5.4 (2.1-6.9); NEUTROPHILS % 67.4 % (38.7-80.0); PLATELET COUNT 205 x10e3/uL (140-360); RED BLOOD COUNT 4.07 x10e6/uL (4.3-5.7); WHITE BLOOD COUNT 8.06 x10e3/uL (4.8-10.8)
[2024-12-28 16:32] LABS: ALBUMIN 3.7 g/dL (3.5-5.0); ALBUMIN/GLOBULIN RATIO 1.1 (0.8-2.0); ANION GAP 13.6 mmol/L (8-16); BILIRUBIN,TOTAL 0.4 mg/dL (0.2-1.2); CALCIUM 8.8 mg/dL (8.4-10.2); CREATININE, SERUM 1.3 mg/dL (0.72-1.25); POTASSIUM 4.6 mmol/L (3.5-5.1); TOTAL PROTEIN 7.1 g/dL (6.5-8.1)
[2024-12-28 16:39] LABS: TROPONIN I 0.011 ng/mL (0-0.300)
[2024-12-28] MEDS: FENTANYL CITRATE/PF 100MCG/2 ML INJ IV STA (17:39)
[2024-12-28] MEDS ORDERED: SODIUM CHLORIDE 0.9% 1000ML 1,000 ML IV SCH (19:15)
[2024-12-28] MEDS ORDERED: ONDANSETRON HCL INJ 2MG/ML 2ML 2 MG/ML VIAL IV PRN (19:15)
[2024-12-28] MEDS ORDERED: Morphine 4mg INJECTION 4 MG/ML INJ IV PRN (19:15)
[2024-12-28 19:30] VITALS: PULSE 63; RESP 16; TEMP 98.2; O2SAT 96
[2024-12-29] MEDS ORDERED: SODIUM CHLORIDE 0.9% 100 ML ONE (13:44)
[2024-12-29] MEDS ORDERED: IOPAMIDOL 370 MG/ML 100 ML INFUS..BTL INJ ONE (13:45)
== END 2024-12-28 19:43 | disposition home or self-care (01) ==
LOC: ER 15:30
DX: R10.31 Right lower quadrant pain (principal); I73.9 Peripheral vascular disease, unspecified; K57.90 Diverticulosis of intestine, part unspecified, without perforation or abscess without bleeding; I10 Essential (primary) hypertension; E11.65 Type 2 diabetes mellitus with hyperglycemia; J44.9 Chronic obstructive pulmonary disease, unspecified; I48.91 Unspecified atrial fibrillation; D64.9 Anemia, unspecified; I71.40 Abdominal aortic aneurysm, without rupture, unspecified; Z95.1 Presence of aortocoronary bypass graft
CPT/HCPCS: 36415; 71045; 75635; 80053; 82550; 83690; 83880; 84484; 85025; 93005; 99284; J3010; J7050; Q9967

== ENCOUNTER 2024-12-30 15:00 | Inpatient (IN) | payer MEDICARE ==
[~2024-12-30] VITALS: Ht 190.5 cm; Wt 105.7 kg
[2024-12-30 15:16] VITALS: RESP 17; TEMP 98.2
[2024-12-30 16:16] VITALS: PULSE 70
[2024-12-30 18:33] VITALS: BP 139/58; PULSE 75; RESP 18; TEMP 98.2; O2SAT 99
[2024-12-30 20:00] VITALS: BP 161/58; PULSE 81; RESP 18; TEMP 98.1; O2SAT 99
[2024-12-30] MEDS: Morphine 4mg INJECTION 4 MG/ML INJ IV PRN (20:20)
[2024-12-30] MEDS: DONEPEZIL HCL 5 MG TAB PO SCH (20:21)
[2024-12-30] MEDS: ASPIRIN 325 MG TAB PO SCH (20:21)
[2024-12-30] MEDS: LOSARTAN POTASSIUM 25 MG TAB PO SCH (20:21)
[2024-12-30] MEDS: PREGABALIN 75 MG CAP PO SCH (20:22)
[2024-12-30] MEDS: ATORVASTATIN 40 MG TAB PO SCH (20:22)
[2024-12-31] VITALS (7 sets, daily range): BP systolic 126–159; BP diastolic 57–75; PULSE 59–98; RESP 15–18; TEMP 97.6–98; O2SAT 94–96
[2024-12-31 05:13] LABS: BASOPHILS % 0.3 % (0.0-1.0); EOSINOPHILS # (AUTO) 0.3 (0.0-0.4); EOSINOPHILS % 3.8 % (0.0-6.0); HEMATOCRIT 36.9 % (38.2-49.6); HEMOGLOBIN 11.5 g/dL (14.0-18.0); LYMPHOCYTES # (AUTO) 1.1 (1.0-3.2); LYMPHOCYTES % 16.3 % (18.0-39.1); MEAN CORPUSCULAR HEMOGLOBIN 28.1 pg (28-32); MEAN CORPUSCULAR HGB CONC 31.2 g/dL (31-35); MEAN CORPUSCULAR VOLUME 90.2 fL (81-99); MONOCYTES # (AUTO) 0.7 (0.2-0.8); NEUTROPHILS # (AUTO) 4.5 (2.1-6.9); PLATELET COUNT 195 x10e3/uL (140-360); RED BLOOD COUNT 4.09 x10e6/uL (4.3-5.7); WHITE BLOOD COUNT 6.62 x10e3/uL (4.8-10.8)
[2024-12-31 05:54] LABS: ANION GAP 14.6 mmol/L (8-16); CREATININE, SERUM 0.96 mg/dL (0.72-1.25); POTASSIUM 4.6 mmol/L (3.5-5.1)
[2024-12-31] MEDS ORDERED: QUETIAPINE FUMARATE 25 MG TAB PO SCH (09:00)
[2024-12-31] MEDS ORDERED: GLIMEPIRIDE 2 MG TAB PO SCH (09:00)
[2024-12-31] MEDS: SPIRONOLACTONE 25 MG TAB PO SCH (10:35)
[2024-12-31] MEDS: PANTOPRAZOLE SOD 40 MG TABEC PO SCH (10:35)
[2024-12-31] MEDS: POTASSIUM CHLORIDE 20 MEQ TAB CR PO SCH (10:35)
[2024-12-31] MEDS: FUROSEMIDE 40 MG TAB PO SCH (10:35)
[2024-12-31] MEDS: DULOXETINE HCL 30 MG DELAYED RELEASE PO SCH (10:35)
[2024-12-31] MEDS: METFORMIN HCL 500 MG TAB PO SCH (10:35)
[2024-12-31] MEDS: GLIMEPIRIDE 2 MG TAB PO SCH (10:36)
[2024-12-31] MEDS: AMLODIPINE BESYLATE 10 MG TAB PO SCH (10:36)
[2024-12-31] MEDS: METOPROLOL SUCCINATE 50 MG TAB XL PO SCH (10:37)
[2024-12-31] MEDS: HYDROMORPHONE 1MG/1ML INJ IV PRN (13:42)
[2024-12-31] MEDS: HYDROCODONE/APAP 10MG-325MG TAB PO PRN (14:43)
[2024-12-31] MEDS: Doxycycline IV 100 MG in SODIUM CHLORIDE 0.9% 100 ML IV SCH (18:47)
[2024-12-31] MEDS: SODIUM CHLORIDE 0.9% 250ML 250 ML ONE (18:54)
[2024-12-31] MEDS: ALBUTEROL/IPRATROPIUM 3 ML NEB NEB SCH (19:00)
[2025-01-01] VITALS (10 sets, daily range): BP systolic 101–137; BP diastolic 53–87; PULSE 52–85; RESP 17–22; TEMP 97.7–98.2; O2SAT 93–100
[2025-01-01] MEDS: GLIMEPIRIDE 2 MG TAB PO SCH (09:33)
[2025-01-01] MEDS: LIDOCAINE 4% PATCH TP SCH (21:07)
[2025-01-02 00:21] VITALS: PULSE 61; RESP 18; O2SAT 95
[2025-01-02 00:39] VITALS: BP 140/63; PULSE 63; RESP 19; TEMP 97.5; O2SAT 96
[2025-01-02 04:29] VITALS: BP 141/51; PULSE 64; RESP 18; TEMP 97.5; O2SAT 95
[2025-01-02 07:50] VITALS: BP 130/56; PULSE 61; RESP 19; TEMP 98.2; O2SAT 99
[2025-01-02 08:15] VITALS: PULSE 67; RESP 18; O2SAT 92
[2025-01-02 09:14] VITALS: BP 130/56; PULSE 61
== END 2025-01-02 09:50 | disposition home or self-care (01) | DRG 554 ==
LOC: ER 15:38 → ERHOLD 16:59 → MED/SURG 18:19
PROVIDERS: ADMIT Family Medicine; ATTEND Family Medicine
DX: M16.11 Unilateral primary osteoarthritis, right hip (principal); J44.1 Chronic obstructive pulmonary disease with (acute) exacerbation; M25.561 Pain in right knee; I12.9 Hypertensive chronic kidney disease with stage 1 through stage 4 chronic kidney disease, or unspecified chronic kidney disease; E11.22 Type 2 diabetes mellitus with diabetic chronic kidney disease; N18.30 Chronic kidney disease, stage 3 unspecified; E11.51 Type 2 diabetes mellitus with diabetic peripheral angiopathy without gangrene; E11.42 Type 2 diabetes mellitus with diabetic polyneuropathy; Z79.84 Long term (current) use of oral hypoglycemic drugs; I48.91 Unspecified atrial fibrillation; Z95.818 Presence of other cardiac implants and grafts; I25.10 Atherosclerotic heart disease of native coronary artery without angina pectoris; Z95.1 Presence of aortocoronary bypass graft; M50.121 Cervical disc disorder at C4-C5 level with radiculopathy; M48.02 Spinal stenosis, cervical region; M47.22 Other spondylosis with radiculopathy, cervical region; M25.511 Pain in right shoulder; G89.4 Chronic pain syndrome; R53.81 Other malaise; D50.9 Iron deficiency anemia, unspecified; Z79.899 Other long term (current) drug therapy; Z79.82 Long term (current) use of aspirin
CPT/HCPCS: 36415; 80048; 82948; 85025; 94799; 99252; 99283; J1171; J2270; J7050

== ENCOUNTER 2025-01-07 14:21 | Outpatient (RCR) | payer MEDICARE | END 2025-01-10 | LOC: PT 14:21 | PROVIDERS: ATTEND Family Medicine | DX: R53.81 Other malaise (principal) ==

== ENCOUNTER 2025-01-22 14:00 | Outpatient (RCR) | payer MEDICARE ==
[2025-02-12] MEDS ORDERED: FARXIGA5 MG PO (09:09)
== END 2025-02-10 ==
LOC: PT 14:00
PROVIDERS: ATTEND Family Medicine
DX: R53.81 Other malaise (principal)

== ENCOUNTER → 2025-02-07 | Outpatient (REF) | payer MEDICARE | LOC: CT 13:38 | PROVIDERS: ATTEND Orthopaedic Surgery Adult Reconstructive Orthopaedic Surgery | DX: M16.11 Unilateral primary osteoarthritis, right hip (principal) ==

== ENCOUNTER 2025-02-20 06:56 | Observation (INO) | payer MEDICARE ==
[~2025-02-20] VITALS: Ht 190.5 cm; Wt 104.8 kg
[2025-02-20] VITALS (8 sets, daily range): BP systolic 118–135; BP diastolic 45–61; PULSE 50–82; RESP 17–22; TEMP 97.5–98.6; O2SAT 94–99
[~2025-02-20 06:56] MED LIST changes: +FARXIGA5 MG PO
[2025-02-20] MEDS: LACTATED RINGER'S 1,000 ML ONE (07:45)
[2025-02-20] MEDS ORDERED: LIDOCAINE HCL 2% LOCAL INJ 5 ML SDV VIAL INJ ONE (08:27)
[2025-02-20] MEDS ORDERED: PROPOFOL IV EMULSION 10 MG/ML 20 ML VIAL ONE (08:27)
[2025-02-20] MEDS ORDERED: SEVOFLURANE INHAL SOLN 250 ML PEN BTL ONE (08:27)
[2025-02-20] MEDS ORDERED: ALBUTEROL 90 MCG/ACT INHALER INH ONE (09:48)
[2025-02-20] MEDS ORDERED: EPHEDRINE SULFATE INJ 50 MG/ML VIAL ONE ×2 (09:59→10:36)
[2025-02-20] MEDS ORDERED: ONDANSETRON HCL INJ 2MG/ML 2ML 2 MG/ML VIAL ONE (10:01)
[2025-02-20] MEDS ORDERED: METOCLOPRAMIDE HCL 10 MG/2ML VIAL ONE (10:01)
[2025-02-20] MEDS ORDERED: Vancomycin IV 1 GM VIAL ONE (10:15)
[2025-02-20] MEDS ORDERED: GLYCOPYRROLATE INJ 0.2 MG/ML VIAL ONE ×2 (10:36→10:42)
[2025-02-20] MEDS ORDERED: ACETAMINOPHEN 1000 MG/100 ML 100 ML IV ONE (11:19)
[2025-02-20] MEDS ORDERED: TRANEXAMIC ACID 1,000 MG/10 ML ML ONE (13:37)
[2025-02-20] MEDS ORDERED: ONDANSETRON HCL INJ 2MG/ML 2ML 2 MG/ML VIAL IV PRN (14:00)
[2025-02-20] MEDS ORDERED: HYDROCODONE/APAP 7.5MG-325MG 1 EA TAB PO PRN (14:00)
[2025-02-20] MEDS ORDERED: BENZONATATE 100 MG CAP PO PRN (15:15)
[2025-02-20] MEDS ORDERED: POTASSIUM CHLORIDE 20 MEQ TAB CR PO PRN (15:15)
[2025-02-20] MEDS ORDERED: DOCUSATE SODIUM 100 MG CAP PO PRN (15:15)
[2025-02-20] MEDS ORDERED: HYDRALAZINE HCL 20 MG/ML VIAL IV PRN (15:15)
[2025-02-20] MEDS ORDERED: ACETAMINOPHEN 325 MG TAB PO PRN (15:15)
[2025-02-20] MEDS ORDERED: DIPHENHYDRAMINE HCL 25 MG CAP PO PRN (15:15)
[2025-02-20] MEDS ORDERED: DEXTROSE 50% SYRINGE 50 ML IV PRN ×2 (15:15)
[2025-02-20] MEDS ORDERED: SIMETHICONE 80 MG CHEW PO PRN (15:15)
[2025-02-20] MEDS ORDERED: Morphine 4mg INJECTION 4 MG/ML INJ IV PRN (15:15)
[2025-02-20] MEDS: ALBUTEROL/IPRATROPIUM 3 ML NEB ONE (15:36)
[2025-02-20] MEDS: CEFAZOLIN SODIUM 2 GM ONE (15:37)
[2025-02-20] MEDS: ROPIVACAINE/EPI/CLONIDINE/KET 50 ML SYRINGE INJ ONE (15:37)
[2025-02-20] MEDS ORDERED: ASPIRIN 81 MG CHEW TAB PO SCH (17:00)
[2025-02-20] MEDS: INSULIN LISPRO 100 UNIT/1 ML 3ML VIAL SQ SCH (17:19)
[2025-02-20] MEDS: CEFAZOLIN SODIUM 2 GM in SODIUM CHLORIDE 0.9% 100 ML IV SCH (17:20)
[2025-02-20] MEDS: PREGABALIN 75 MG CAP PO SCH (20:07)
[2025-02-20] MEDS: DONEPEZIL HCL 5 MG TAB PO SCH (20:07)
[2025-02-20] MEDS: DULOXETINE HCL 30 MG DELAYED RELEASE PO SCH (20:08)
[2025-02-20] MEDS: ATORVASTATIN 40 MG TAB PO SCH (20:08)
[2025-02-20] MEDS: ENOXAPARIN SOD INJ 40 MG/0.4 ML SYR SC SCH (20:08)
[2025-02-21] VITALS (10 sets, daily range): BP systolic 130–159; BP diastolic 46–108; PULSE 63–90; RESP 17–20; TEMP 97.6–98.4; O2SAT 95–100
[2025-02-21 07:25] LABS: BASOPHILS % 0.1 % (0.0-1.0); HEMATOCRIT 29.6 % (38.2-49.6); HEMOGLOBIN 9.6 g/dL (14.0-18.0); LYMPHOCYTES # (AUTO) 0.8 (1.0-3.2); LYMPHOCYTES % 4.6 % (18.0-39.1); MEAN CORPUSCULAR HEMOGLOBIN 29.4 pg (28-32); MEAN CORPUSCULAR HGB CONC 32.4 g/dL (31-35); MEAN CORPUSCULAR VOLUME 90.8 fL (81-99); MONOCYTES # (AUTO) 1.2 (0.2-0.8); MONOCYTES % 6.9 % (4.4-11.3); NEUTROPHILS # (AUTO) 15.4 (2.1-6.9); NEUTROPHILS % 87.9 % (38.7-80.0); PLATELET COUNT 177 x10e3/uL (140-360); RED BLOOD COUNT 3.26 x10e6/uL (4.3-5.7); RED CELL DISTRIBUTION WIDTH 14.7 % (11.7-14.4); WHITE BLOOD COUNT 17.53 x10e3/uL (4.8-10.8)
[2025-02-21 07:45] LABS: ANION GAP 15.1 mmol/L (8-16); CALCIUM 7.8 mg/dL (8.4-10.2); CREATININE, SERUM 1.12 mg/dL (0.72-1.25); POTASSIUM 4.1 mmol/L (3.5-5.1)
[2025-02-21] MEDS: QUETIAPINE FUMARATE 25 MG TAB PO SCH (08:14)
[2025-02-21] MEDS: LIDOCAINE 4% PATCH TP PRN (12:03)
[2025-02-21] MEDS: ONDANSETRON HCL INJ 2MG/ML 2ML 2 MG/ML VIAL IV PRN (12:03)
[2025-02-21] MEDS: Morphine 4mg INJECTION 4 MG/ML INJ IV PRN (12:03)
[2025-02-21] MEDS ORDERED: ALBUTEROL/IPRATROPIUM 3 ML NEB NEB PRN (14:30)
[2025-02-21] MEDS: ALBUTEROL/IPRATROPIUM 3 ML NEB NEB PRN (14:50)
[2025-02-21] MEDS: FUROSEMIDE INJ 10 MG/ML 4 ML VIAL IV ONE (17:10)
[2025-02-21] MEDS: LOSARTAN POTASSIUM 25 MG TAB PO SCH (20:47)
[2025-02-21] MEDS: FUROSEMIDE 40 MG TAB PO SCH (20:49)
[2025-02-21] MEDS: HYDROCODONE/APAP 5MG-325MG TAB PO PRN (23:46)
[2025-02-21] MEDS: MELATONIN 5 MG TABLET PO PRN (23:47)
[2025-02-22 03:14] VITALS: BP 134/78; PULSE 73; RESP 17; TEMP 97.6; O2SAT 98
[2025-02-22 05:31] LABS: ANION GAP 16.2 mmol/L (8-16); CREATININE, SERUM 1.02 mg/dL (0.72-1.25); POTASSIUM 4.2 mmol/L (3.5-5.1)
[2025-02-22 08:33] LABS: BASOPHILS % 0.2 % (0.0-1.0); EOSINOPHILS # (AUTO) 0.1 (0.0-0.4); EOSINOPHILS % 1.1 % (0.0-6.0); HEMATOCRIT 33.2 % (38.2-49.6); HEMOGLOBIN 10.5 g/dL (14.0-18.0); LYMPHOCYTES # (AUTO) 1.4 (1.0-3.2); LYMPHOCYTES % 12.6 % (18.0-39.1); MEAN CORPUSCULAR HEMOGLOBIN 29.3 pg (28-32); MEAN CORPUSCULAR HGB CONC 31.6 g/dL (31-35); MEAN CORPUSCULAR VOLUME 92.7 fL (81-99); MONOCYTES # (AUTO) 1.2 (0.2-0.8); MONOCYTES % 10.3 % (4.4-11.3); NEUTROPHILS # (AUTO) 8.5 (2.1-6.9); NEUTROPHILS % 75.2 % (38.7-80.0); PLATELET COUNT 160 x10e3/uL (140-360); RED BLOOD COUNT 3.58 x10e6/uL (4.3-5.7); RED CELL DISTRIBUTION WIDTH 15.3 % (11.7-14.4)
[2025-02-22 09:03] VITALS: BP 139/59; PULSE 87; RESP 18; TEMP 98.4; O2SAT 95
[2025-02-22] MEDS: METOPROLOL SUCCINATE 50 MG TAB XL PO SCH (09:10)
[2025-02-22] MEDS: AMLODIPINE BESYLATE 10 MG TAB PO SCH (09:10)
[2025-02-22] MEDS: SPIRONOLACTONE 25 MG TAB PO SCH (09:11)
[2025-02-22 09:38] VITALS: PULSE 78; RESP 18; O2SAT 96
[2025-02-22 10:26] VITALS: BP 139/59; PULSE 78; RESP 18; TEMP 98.4; O2SAT 96
[2025-02-22 11:20] VITALS: BP 119/52; PULSE 74; RESP 18; TEMP 98.1; O2SAT 95
== END 2025-02-22 14:53 | disposition home or self-care (01) ==
LOC: OR 06:56 → PACU V 14:23 → MED/SURG 14:24
PROVIDERS: ADMIT Orthopaedic Surgery Adult Reconstructive Orthopaedic Surgery; ATTEND Orthopaedic Surgery Adult Reconstructive Orthopaedic Surgery
DX: M16.11 Unilateral primary osteoarthritis, right hip (principal); J44.9 Chronic obstructive pulmonary disease, unspecified; I12.9 Hypertensive chronic kidney disease with stage 1 through stage 4 chronic kidney disease, or unspecified chronic kidney disease; E11.22 Type 2 diabetes mellitus with diabetic chronic kidney disease; N18.9 Chronic kidney disease, unspecified; Z79.84 Long term (current) use of oral hypoglycemic drugs; F41.8 Other specified anxiety disorders; Z79.82 Long term (current) use of aspirin; I25.10 Atherosclerotic heart disease of native coronary artery without angina pectoris; Z95.1 Presence of aortocoronary bypass graft; M10.9 Gout, unspecified; E78.00 Pure hypercholesterolemia, unspecified
CPT/HCPCS: 27130; 36415 ×3; 71045; 71046; 72170; 80048 ×2; 82948 ×3; 85025 ×2; 86850; 86870; 86880; 86900; 86905; 93005; 94640; 94799 ×3; 96372; 97110; 97116 ×3; 97161; 97530 ×2; 99001; 99252; C1713 ×5; C1776 ×2; G0378 ×3; J0131; J1650 ×2; J1938; J2003; J2270; J2405 ×2; J2704; J2765; J3370; J7050 ×2; J7121

== ENCOUNTER → 2025-06-11 | Outpatient (REF) | payer MEDICARE ==
[~2025-06-11] MED LIST changes: +IOPAMIDOL 370 MG/ML 100 ML INFUS..BTL INJ ONE; +SODIUM CHLORIDE 0.9% 100 ML ONE; +SODIUM CHLORIDE 0.9% 500ML 500 ML ONE
[2025-06-11 08:31] LABS: EST GLOMERULAR FILTRATION RATE 53.0 ML/MIN (>=60)
== END ==
LOC: CT 07:28
PROVIDERS: ATTEND Internal Medicine Cardiovascular Disease
DX: I65.29 Occlusion and stenosis of unspecified carotid artery (principal); I34.0 Nonrheumatic mitral (valve) insufficiency
CPT/HCPCS: 36415; 71275; 74174; 82565; 84520; 96360; J7040; J7050; Q9967